=== PATIENT | male | born 1985 | race African-American/Black ===

== ENCOUNTER 2017-08-11 22:04 | Emergency (ER) | payer BC, MEDICAID ==
[~2017-08-11] VITALS: Ht 167.6 cm; Wt 74.8 kg
[~2017-08-11 22:04] MED LIST: HYDR-971 PO; SULF1TAB24 PO
[2017-08-11 22:05] VITALS: BP 158/96
[2017-08-11] MEDS ORDERED: HYDR-971 PO (22:26)
[2017-08-11] MEDS ORDERED: SULF1TAB24 PO (22:26)
--- NOTE | 2017-08-11 22:27 | PHYS DOC ---
Past Medical History Past Medical History: No Pertinent History, HIV (. You) Past Surgical History: No Surgical History Alcohol Use: Rarely Drug Use: None Adult General Chief Complaint Chief Complaint: INSECT BITE HPI HPI Patient is a 32 year old male with hx of HIV who presents with what he believes is a spider bite on the left forehead that he noted 2 days ago. Patient denies any fever. Review of Systems Review of Systems Constitutional: Denies fever or chills [] Musculoskeletal: Denies back pain or joint pain [] Integument: Spider bite on the left forehead Neurologic: Denies headache, focal weakness or sensory changes [] Allergies Allergies Allergies Coded Allergies Type Severity Reaction Last Updated Verified quetiapine Allergy Intermediate jittery/sweaty 05/29/15 Yes tramadol Allergy Intermediate "makes me feel funny" 05/29/15 No I S O L A T I O N *CONTACT* Allergy Unknown 06/02/15 Yes Physical Exam Physical Exam Constitutional: Well developed, well nourished, no acute distress, non-toxic appearance. [] Skin: Warm, dry, left forehead with an indurated area approximately 2 x 2 centimeters with slight erythema. The area is tender to touch warm but not fluctuant. Back: No tenderness, no CVA tenderness. [] Extremities: No tenderness, no cyanosis, no clubbing, ROM intact, no edema. [] Neurologic: Alert and oriented X 3, normal motor function, normal sensory function, no focal deficits noted. [] Psychologic: Affect normal, judgement normal, mood normal. [] Current Patient Data Vital Signs Vital Signs Date Time Temp Pulse Resp B/P (MAP) Pulse Ox O2 Delivery O2 Flow Rate FiO2 08/11/17 22:05 98.2 95 16 97 Room Air 98.2 EKG EKG [] Radiology/Procedures Radiology/Procedures [] Course & Med Decision Making Course & Med Decision Making Pertinent Labs and Imaging studies reviewed. (See chart for details) This is a HIV patient presenting to the ED with what appears to be an abscess on the left forehead that is not ready to be drained. He was discharged on Bactrim. He was also discharged with instructions to apply warm compresses to the area. Follow-up with his own PCP in one week. He was provided return precautions and discharged in stable condition. Tetanus is up to date. Dragon Disclaimer Dragon Disclaimer This electronic medical record was generated, in whole or in part, using a voice recognition dictation system. Departure Departure Impression: Primary Impression: Abscess of forehead Disposition: 01 HOME, SELF-CARE Condition: STABLE Referrals: UNKNOWN PCP NAME (PCP) followup with your doctor next week Patient Instructions: Abscess Additional Instructions: You were seen with an abscess of the left forehead. Keep the area clean and dry. You can apply warm compresses to the area. Ensure you complete all the antibiotics. Follow-up with your doctor next week. Come back to the ED if symptoms worsen. Scripts Hydrocodone/Apap 5-325 (NORCO 5-325 TABLET) 1 Each Tablet 1 TAB PO Q4-6HRS, #20 TAB Prov: ELIZABETH ASIF APRN 08/11/17 Sulfamethoxazole/Trimethoprim (BACTRIM DS TABLET) 1 Each Tablet 1 TAB PO BID, #20 TAB Prov: ELIZABETH ASIF APRN 08/11/17 ELIZABETH ASIF APRN Aug 11, 2017 22:27
== END 2017-08-11 22:41 | disposition home or self-care (01) ==
LOC: ER 22:04
DX: L02.01 Cutaneous abscess of face (principal); Z88.8 Allergy status to other drugs, medicaments and biological substances; Z88.5 Allergy status to narcotic agent; Z91.041 Radiographic dye allergy status; Z21 Asymptomatic human immunodeficiency virus [HIV] infection status
CPT/HCPCS: 99283

== ENCOUNTER 2017-10-09 22:52 | Inpatient (IN) | payer BC, MEDICAID ==
[~2017-10-09] VITALS: Ht 167.6 cm; Wt 92.3 kg
[2017-10-10] VITALS (15 sets, daily range): BP systolic 86–131; BP diastolic 46–80
[2017-10-10 00:12] LABS: BASO % 0 % (0-3); EOS % 0 % (0-3); HEMATOCRIT 37.3 % (39.0-53.0); HEMOGLOBIN 12.5 g/dL (13.0-17.5); LYMPH # 0.3 x10^3/uL (1.0-4.8); LYMPH % 4 % (24-48); MEAN CORPUSCULAR HEMOGLOBIN 31 pg (25-35); MEAN CORPUSCULAR HGB CONC 34 g/dL (31-37); MEAN CORPUSCULAR VOLUME 92 fL (79-100); MONO % 1 % (0-9); NEUT % 95 % (31-73); PLATELET COUNT 52 x10^3/uL (140-400); RED BLOOD COUNT 4.07 x10^6/uL (4.30-5.70); RED CELL DISTRIBUTION WIDTH 13.8 % (11.5-14.5)
[2017-10-10 00:13] LABS: BILIRUBIN,URINE NEGATIVE (NEG); GLUCOSE,URINE NEGATIVE (NEG); NITRITE,URINE NEGATIVE (NEG); PH,URINE 6.5; PROTEIN,URINE >=300 mg/dL (NEG-TRACE); UROBILINOGEN,URINE 0.2 mg/dL (0.2 mg/dL)
[2017-10-10 00:22] LABS: BACTERIA,URINE 0 /HPF (0-FEW); SQUAMOUS EPITHELIAL CELL,UR FEW /LPF
[2017-10-10 00:30] LABS: CALCIUM 8.3 mg/dL (8.5-10.1); CREATININE 1.3 mg/dL (0.7-1.3); GFR 78.4
[2017-10-10] MEDS ORDERED: VANCOMYCIN PER PHARMACY MC PRN (00:30)
[2017-10-10] MEDS ORDERED: PIPERACILLIN/TAZO IV Push 3.375 GM VIAL. IVP ONE (00:30)
[2017-10-10] MEDS ORDERED: PIPERACILLIN/TAZOBACTAM 3.375 GM in IV DEXTROSE 5% 50 ML IV ONE (00:30)
[2017-10-10 00:36] LABS: ALBUMIN 2.4 g/dL (3.4-5.0); ALBUMIN/GLOBULIN RATIO 0.7 (1.0-1.7); TOTAL BILIRUBIN 0.4 mg/dL (0.2-1.0)
[2017-10-10] MEDS ORDERED: ACETAMINOPHEN 500 MG TABLET PO ONE (00:45)
[2017-10-10] MEDS ORDERED: IV NORMAL SALINE 1000ML BAG 1,000 ML IV ONE (00:45)
[2017-10-10] MEDS ORDERED: VANCOMYCIN 1.75 GM in IV DEXTROSE 5 %-0.45 % NACL 500 ML IV ONE (01:00)
[2017-10-10] MEDS ORDERED: AZITHROMYCIN 500 MG in IV NORMAL SALINE 250ML 250 ML IV ONE (01:15)
[2017-10-10] MEDS ORDERED: ONDANSETRON PF 4 MG/2 ML VIAL. IV PRN (01:15)
[2017-10-10 01:23] LABS: BASE EXCESS COOX -2 mmol/L (-3-3); BODY TEMP COOX 100.7 DEG; CARBON MONOXIDE 0.1 % (0.0-1.9); CORRECTED PCO2 COOX 27 mmHg; CORRECTED PH COOX 7.49; CORRECTED PO2 COOX 82 mmHg; HCO3 COOX 20 mmol/L (21-28); METHEMOGLOBIN 0.7 % (0.0-1.9); OXYHEMOGLOBIN 94.6 %; PCO2 COOX 26 mmHg (35-46); PH COOX 7.51 (7.35-7.45); PO2 COOX 75 mmHg (85-108); SAT O2 COOX 95 % (92-99); TOTAL HEMOGLOBIN 12.3 g/dL
[2017-10-10] MEDS ORDERED: AZITHRMYCN 500MG IVPB FOR OMNI 250 ML IV ONE (01:30)
[2017-10-10] MEDS ORDERED: ATOVAQUONE 750 MG/5 ML ORAL.SUSP. PO ONE (01:30)
[2017-10-10 01:48] LABS: FIO2 COOX 21
[2017-10-10] MEDS ORDERED: predniSONE 20 MG TABLET PO ONE (02:00)
[2017-10-10] MEDS ORDERED: IV NORMAL SALINE 500ML BAG 500 ML IV PRN (02:15)
[2017-10-10] MEDS ORDERED: NOREPINEPHRIN PREMIX 250 ML IV PRN (02:15)
[2017-10-10] MEDS: IV NORMAL SALINE 1000ML BAG 1,000 ML IV SCH ×4 (02:50→22:50)
[2017-10-10] MEDS ORDERED: chlorproMAZINE 25 MG TABLET PO PRN (03:30)
[2017-10-10] MEDS: IBUPROFEN 600 MG TABLET. PO PRN (03:41)
--- NOTE | 2017-10-10 03:48 | PHYS DOC ---
Past Medical History Past Medical History: HIV Past Surgical History: No Surgical History Additional Information: 3-4 CIGS/DAY Alcohol Use: None Drug Use: None Adult General Chief Complaint Chief Complaint: COUGH HPI HPI Patient is a 32 year old male presenting to the emergency department for evaluation of cough and fever and generalized malaise fatigue arthralgias and myalgias. Patient reports that he just left AGAINST MEDICAL ADVICE from [facility] 2 days prior to presenting here after being in the hospital there for approximately 3 days. He was diagnosed with pneumonia and was on IV antibiotics for the duration of his admission. He says that he had to go to work and he was feeling better so he decided to leave AGAINST MEDICAL ADVICE. Patient does not have any records with him so all of his admission records were requested from [facility] and most of them were obtained as best I can tell. Patient had CT scan which showed right middle lobe pneumonia and he had a bronchoscopy which was negative for pneumocystis or malignant cells. Patient takes anti-retroviral medications however he is not on any bacterial prophylaxis. Patient says his last CD4 count was 40 and per the records it appears that they measured it at 55. Patient does look quite ill on initial presentation slightly hypoxic and febrile with some respiratory distress. Review of Systems Review of Systems Constitutional: + fever, chills [] Eyes: Denies change in visual acuity, redness, or eye pain [] HENT: Denies nasal congestion or sore throat [] Respiratory: + cough, shortness of breath [] Cardiovascular: No additional information not addressed in HPI [] GI: Denies abdominal pain, nausea, vomiting, bloody stools or diarrhea [] : Denies dysuria or hematuria [] Musculoskeletal: Denies back pain. + joint pain [] Integument: Denies rash or skin lesions [] Neurologic: Denies headache, focal weakness or sensory changes [] All other systems were reviewed and found to be within normal limits, except as documented in this note. Current Medications Current Medications Current Medications Medications (Trade) Dose Ordered Sig/Nay Start Time Stop Time Status Last Admin Dose Admin Acetaminophen (Tylenol) 1,000 mg 1X ONCE 10/10/17 00:45 10/10/17 00:46 DC 10/10/17 01:07 1,000 MG Piperacillin Sod/ Tazobactam Sod (Zosyn) 3.375 gm 1X ONCE 10/10/17 00:30 10/10/17 00:31 DC 10/10/17 00:51 3.375 GM Piperacillin Sod/ Tazobactam Sod 3.375 gm/Dextrose 50 ml @ 100 mls/hr 1X ONCE 10/10/17 00:30 10/10/17 00:59 UNV Sodium Chloride 1,000 ml @ 1,000 mls/hr 1X ONCE 10/10/17 00:45 10/10/17 01:44 DC 10/10/17 01:22 1,000 MLS/HR Vancomycin HCl (Vanco Per Pharmacy) 1 each PRN DAILY PRN 10/10/17 00:30 10/10/17 02:47 1 EACH Allergies Allergies Allergies Coded Allergies Type Severity Reaction Last Updated Verified quetiapine Allergy Intermediate jittery/sweaty 05/29/15 Yes sulfamethoxazole Allergy Intermediate 10/09/17 Yes tramadol Allergy Intermediate "makes me feel funny" 05/29/15 No trimethoprim Allergy Intermediate 10/09/17 Yes I S O L A T I O N *CONTACT* Allergy Unknown 06/02/15 Yes Physical Exam Physical Exam Constitutional: Well developed, well nourished, no acute distress, non-toxic appearance. [] HENT: Normocephalic, atraumatic, bilateral external ears normal, oropharynx moist, no oral exudates, nose normal. [] Eyes: PERRLA, EOMI, conjunctiva normal, no discharge. [] Neck: Normal range of motion, no tenderness, supple, no stridor. [] Cardiovascular:Heart rate tachycardic with regular rhythm, no murmur [] Lungs & Thorax: Bilateral breath sounds with coarse breath sounds and expiratory wheezing noted with some diminished breath sounds as well. Abdomen: Bowel sounds normal, soft, no tenderness, no masses, no pulsatile masses. [] Skin: Warm, dry, no erythema, no rash. [] Back: No tenderness, no CVA tenderness. [] Extremities: No tenderness, no cyanosis, no clubbing, ROM intact, no edema. [] Neurologic: Alert and oriented X 3, normal motor function, normal sensory function, no focal deficits noted. [] Current Patient Data Vital Signs Vital Signs Date Time Temp Pulse Resp B/P (MAP) Pulse Ox O2 Delivery O2 Flow Rate FiO2 10/10/17 00:29 99 129/70 (89) 98 Room Air 10/10/17 00:00 18 10/09/17 23:29 99.7 99.7 Lab Values Laboratory Tests Test 10/09/17 00:00 10/09/17 23:31 10/10/17 00:01 White Blood Count 8.0 x10^3/uL (4.0-11.0) Red Blood Count 4.07 x10^6/uL (4.30-5.70) L Hemoglobin 12.5 g/dL (13.0-17.5) L Hematocrit 37.3 % (39.0-53.0) L Mean Corpuscular Volume 92 fL (79-100) Mean Corpuscular Hemoglobin 31 pg (25-35) Mean Corpuscular Hemoglobin Concent 34 g/dL (31-37) Red Cell Distribution Width 13.8 % (11.5-14.5) Platelet Count 52 x10^3/uL (140-400) L Neutrophils (%) (Auto) 95 % (31-73) H Lymphocytes (%) (Auto) 4 % (24-48) L Monocytes (%) (Auto) 1 % (0-9) Eosinophils (%) (Auto) 0 % (0-3) Basophils (%) (Auto) 0 % (0-3) Neutrophils # (Auto) 7.6 x10^3uL (1.8-7.7) Lymphocytes # (Auto) 0.3 x10^3/uL (1.0-4.8) L Monocytes # (Auto) 0.1 x10^3/uL (0.0-1.1) Eosinophils # (Auto) 0.0 x10^3/uL (0.0-0.7) Basophils # (Auto) 0.0 x10^3/uL (0.0-0.2) Platelet Estimate Pending Urine Collection Type Unknown Urine Color Yellow Urine Clarity Clear Urine pH 6.5 Urine Specific [place] >=1.030 Urine Protein >=300 mg/dL (NEG-TRACE) Urine Glucose (UA) Negative mg/dL (NEG) Urine Ketones (Stick) Negative mg/dL (NEG) Urine Blood Negative (NEG) Urine Nitrite Negative (NEG) Urine Bilirubin Negative (NEG) Urine Urobilinogen Dipstick 0.2 mg/dL (0.2 mg/dL) Urine Leukocyte Esterase Negative (NEG) Urine RBC 3-5 /HPF (0-2) Urine WBC 1-4 /HPF (0-4) Urine Squamous Epithelial Cells Few /LPF Urine Bacteria 0 /HPF (0-FEW) Urine Mucus Mod /LPF Sodium Level 136 mmol/L (136-145) Potassium Level 4.0 mmol/L (3.5-5.1) Chloride Level 102 mmol/L (98-107) Carbon Dioxide Level 25 mmol/L (21-32) Anion Gap 9 (6-14) Blood Urea Nitrogen 15 mg/dL (8-26) Creatinine 1.3 mg/dL (0.7-1.3) Estimated GFR (Cockcroft-Gault) 78.4 BUN/Creatinine Ratio 12 (6-20) Glucose Level 101 mg/dL (70-99) H Calcium Level 8.3 mg/dL (8.5-10.1) L Magnesium Level 2.0 mg/dL (1.8-2.4) Total Bilirubin 0.4 mg/dL (0.2-1.0) Aspartate Amino Transferase (AST) 34 U/L (15-37) Alanine Aminotransferase (ALT) 26 U/L (16-63) Alkaline Phosphatase 75 U/L (46-116) Creatine Kinase 200 U/L (39-308) IM-Ohk-H-Type Natriuretic Peptide 3727 pg/mL (0-124) H Total Protein 6.0 g/dL (6.4-8.2) L Albumin 2.4 g/dL (3.4-5.0) L Albumin/Globulin Ratio 0.7 (1.0-1.7) L O2 Saturation 95 % (92-99) Arterial Blood pH 7.51 (7.35-7.45) H Arterial Blood pH (Temp corrected) 7.49 Arterial Blood pCO2 at Patient Temp 26 mmHg (35-46) L Arterial Blood pCO2 (Temp correct) 27 mmHg Arterial Blood pO2 at Patient Temp 75 mmHg (85-108) L Arterial Blood pO2 (Temp corrected) 82 mmHg Arterial Blood HCO3 20 mmol/L (21-28) L Arterial Blood Base Excess -2 mmol/L (-3-3) Oxyhemoglobin 94.6 % Methemoglobin 0.7 % (0.0-1.9) Carbon Monoxide, Quantitative 0.1 % (0.0-1.9) FiO2 21 Lactic Acid Level 3.1 mmol/L (0.4-2.0) H Laboratory Tests 10/09/17 00:00 Laboratory Tests 10/09/17 00:00 EKG EKG [] Radiology/Procedures Radiology/Procedures Normal heart size normal mediastinum no obvious free air pneumothorax but he does have right middle lobe and perihilar opacity. Course & Med Decision Making Course & Med Decision Making Patient is quite complex as he is immunocompromised and appears ill. His AA gradient was calculated with his ABG and it was calculated at 43 adjusted for our barometric pressure. His expected AA gradient is 11.5 for his age. Patient does not look toxic but he does look ill so I do not think that he requires intubation or noninvasive mechanical ventilation at this time. I spoke to the infectious disease doctor patient registration clerk Dr. Perez and he recommended vancomycin and Zosyn in addition to Zithromax and atovaquone. Patient's blood pressure is normal so no pressors needed at this time. Sepsis protocol was started with aggressive IV fluids in addition to broad-spectrum antibiotics. Patient did improve significantly from initial presentation while in the emergency department but my opinion he needs ICU admission given his immunosuppressed status and AA gradient. If he continues to improve he may be able to be moved out of the ICU later on today but overnight I want his respiratory status watch closely. Of note steroids are indicated with previous increased AA gradient so he will get 40 mg of prednisone now. Critical care time of 40 minutes. Dragon Disclaimer Dragon Disclaimer This electronic medical record was generated, in whole or in part, using a voice recognition dictation system. Departure Departure Impression: Primary Impression: HCAP (healthcare-associated pneumonia) Additional Impressions: HIV (human immunodeficiency virus infection) Immunosuppression Lactic acid acidosis Sepsis Elevated brain natriuretic peptide (BNP) level Disposition: ADMITTED INPATIENT Admitting Physician: Munira Ontiveros Condition: GUARDED Referrals: UNKNOWN PCP NAME (PCP) Problem Qualifiers DEMOND POSADA DO Oct 10, 2017 03:48
[2017-10-10 05:04] LABS: PLT ESTIMATE DECREASED (ADEQUATE)
--- NOTE | 2017-10-10 07:27 | RAD ---
Indication: Short of air. Technique: Two-view chest radiograph was obtained. No comparison is available. Findings: There may be minimal right infrahilar infiltrate, as noted on the ER preliminary report. Otherwise, the lungs are clear. Cardiomediastinal silhouette is within normal limits. There is no pleural effusion. Bony structures are intact. Impression: There may be minimal right infrahilar infiltrate.
--- NOTE | 2017-10-10 08:11 | PDOC ---
Infectious Disease Note Vital Sign Vital Signs Vital Signs Date Time Temp Pulse Resp B/P (MAP) Pulse Ox O2 Delivery O2 Flow Rate FiO2 10/10/17 06:00 99 27 108/55 (72) 97 Nasal Cannula 2.0 10/10/17 05:00 98.8 98.8 Labs Lab Laboratory Tests Test 10/09/17 23:31 10/10/17 00:01 10/10/17 04:04 O2 Saturation 95 % (92-99) Arterial Blood pH 7.51 (7.35-7.45) Arterial Blood pH (Temp corrected) 7.49 Arterial Blood pCO2 at Patient Temp 26 mmHg (35-46) Arterial Blood pCO2 (Temp correct) 27 mmHg Arterial Blood pO2 at Patient Temp 75 mmHg (85-108) Arterial Blood pO2 (Temp corrected) 82 mmHg Arterial Blood HCO3 20 mmol/L (21-28) Arterial Blood Base Excess -2 mmol/L (-3-3) Oxyhemoglobin 94.6 % Methemoglobin 0.7 % (0.0-1.9) Carbon Monoxide, Quantitative 0.1 % (0.0-1.9) FiO2 21 Lactic Acid Level 3.1 mmol/L (0.4-2.0) 3.1 mmol/L (0.4-2.0) Procalcitonin 0.65 ng/mL (0.00-0.10) Objective Assessment HIV/AIDS Fever Rash Recent pneumonia Non compliance Plan Plan of Care workup cont ARV AUSTEN Forman MD Oct 10, 2017 08:11
[2017-10-10] MEDS ORDERED: HYDROcodone/APAP 5/325MG 1 TAB TABLET PO PRN (08:15)
[2017-10-10] MEDS ORDERED: ALBUTEROL SULFATE 2.5 MG/3 ML NEBU. NEB PRN (08:45)
[2017-10-10] MEDS ORDERED: IOHEXOL 300 MG/ML 100ML VIAL. IV ONE (09:00)
[2017-10-10] MEDS ORDERED: CONTRAST GIVEN MC PRN (09:00)
[2017-10-10] MEDS: IPRATRPIUM/ALBUTEROL 0.5/2.5MG 3 ML NEBU. NEB SCH ×4 (09:00→21:21)
[2017-10-10] MEDS ORDERED: IOHEXOL 240 MG/ML 50ML VIAL. PO ONE (09:00)
[2017-10-10] MEDS: chlorproMAZINE 25 MG TABLET PO SCH ×2 (09:20→15:00)
[2017-10-10] MEDS: ATOVAQUONE 750 MG/5 ML ORAL.SUSP. PO SCH (09:20)
[2017-10-10] MEDS: AZITHROMYCIN 500 MG in IV NORMAL SALINE 250ML 250 ML IV SCH (09:20)
[2017-10-10] MEDS ORDERED: NICOTINE 21MG PATCH. TD PRN (09:30)
--- NOTE | 2017-10-10 09:30 | PDOC1 ---
History and Physical Date of Admission Date of Admission DATE: 10/10/17 TIME: 09:20 Identification/Chief Complaint Chief Complaint Fever, cough, generalized weakness Problems: Source Source: Caregiver, Chart review, Patient History of Present Illness History of Present Illness 32-year-old -Mongolian male, known HIV, follows with [facility] for his HIV and HAART, there is some noncompliance documented. Comes in because of the above chief complaint. Claims fever at home myalgias productive cough feeling like crap". He was just recently admitted at [facility] stayed there for 3 days but went AMA 2 days ago because he was feeling better. He did not have any home antibiotics with him because he was discharged AMA. He comes in because of worsening symptoms. He does not know his last CD4 count or viral load. Based on documentation that I have reviewed from [facility] records his last CD4 count was 55. Unknown viral load but there is a mention that it was not undetectable. He claims he is on 2 different pills for his HAART treatment. He has been consulted, ordered viral load, started empiric antibiotics in an immunocompromise. Pulmonary has also been consulted for this pneumonia in an immunocompromised appreciable right lobe consolidation on chest x-ray. Been called last night for hiccups, some headache. He does not have a white count. Hemoglobin 12 WBC 8 platelets 52 lactate 3.1 he was hypotensive a bit but this responded to IV fluids. His flu a and B at [facility] was negative. Does smoke, around 3-40 today. 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 He lives close by hence he came at [facility]. He claims he has family support, and knows his HIV status. Past Medical History Past Medical History HIV on HAART asthma, chronic stable Smoker, 3-4 cigarettes a day Past Surgical History Past Surgical History: No pertinent history Family History Family History: Family History Unknown Social History Smoke: <1 pack per day ALCOHOL: none Drugs: None Current Problem List Problem List Problems Medical Problems: (1) Elevated brain natriuretic peptide (BNP) level Status: Acute (2) HCAP (healthcare-associated pneumonia) Status: Acute (3) HIV (human immunodeficiency virus infection) Status: Acute (4) Immunosuppression Status: Acute (5) Lactic acid acidosis Status: Acute (6) Sepsis Status: Acute Problems: Current Medications Current Medications Current Medications Sodium Chloride 1,000 ml @ 1,000 mls/hr 1X ONCE IV Last administered on 10/10 01:22; Start 10/10/17 at 00:45; Stop 10/10/17 at 01:44; Status DC Acetaminophen (Tylenol) 1,000 mg 1X ONCE PO Last administered on 10/10/17 01 :07; Start 10/10/17 at 00:45; Stop 10/10/17 at 00:46; Status DC Vancomycin HCl (Vanco Per Pharmacy) 1 each PRN DAILY PRN MC SEE COMMENTS Last administered on 10/10/17 02:47; Start 10/10/17 at 00:30 Piperacillin Sod/ Tazobactam Sod 3.375 gm/Dextrose 50 ml @ 100 mls/hr 1X ONCE IV ; Start 10/10/17 at 00:30; Stop 10/10/17 at 00:59; Status UNV Piperacillin Sod/ Tazobactam Sod (Zosyn) 3.375 gm 1X ONCE IVP Last administered on 10/10/17 00:51; Start 10/10/17 at 00:30; Stop 10/10/17 at 00 :31; Status DC Vancomycin HCl 1.75 gm/Dextrose/ Sodium Chloride 500 ml @ 250 mls/hr 1X ONCE IV Last administered on 10/10/17 00:51; Start 10/10/17 at 01:00; Stop 10/10 at 02:59; Status DC Azithromycin 500 mg/Sodium Chloride 250 ml @ 250 mls/hr 1X ONCE IV ; Start at 01:15; Stop 10/10/17 at 02:14; Status UNV Atovaquone (Mepron) 750 mg 1X ONCE PO Last administered on 10/10/17 01:57; Start 10/10/17 at 01:30; Stop 10/10/17 at 01:31; Status DC Ondansetron HCl (Zofran) 4 mg PRN Q8HRS PRN IV NAUSEA/VOMITING; Start at 01:15; Stop 10/11/17 at 01:14 Azithromycin 250 ml @ 250 mls/hr 1X ONCE IV Last administered on 10/10/17 02:02; Start 10/10/17 at 01:30; Stop 10/10/17 at 02:29; Status DC Prednisone (Prednisone) 40 mg 1X ONCE PO Last administered on 10/10/17 01:57 ; Start 10/10/17 at 02:00; Stop 10/10/17 at 02:01; Status DC Sodium Chloride 1,000 ml @ 1,000 mls/hr Q1H IV Last administered on 03:30; Start 10/10/17 at 02:30; Stop 10/10/17 at 04:25; Status DC Sodium Chloride 500 ml @ 1,000 mls/hr PRN Q30MIN PRN IV SEE COMMENTS; Start 10/10/17 at 02:15 Norepinephrine Bitartrate 250 ml @ 0 mls/hr CONT PRN IV SEE I/O RECORD; Start 10/10/17 at 02:15; Stop 10/10/17 at 08:33; Status DC Dobutamine HCl/ Dextrose 250 ml @ 0 mls/hr CONT PRN IV SEE I/O RECORD; Start 10/10/17 at 02:15; Stop 10/10/17 at 08:33; Status DC Vancomycin HCl 1.25 gm/Sodium Chloride 250 ml @ 167 mls/hr Q12H IV ; Start at 13:00; Stop 10/10/17 at 13:00; Status DC Vancomycin HCl 1 each 1X ONCE MC ; Start 10/11/17 at 12:30; Stop 10/11/17 at 12:31 Ibuprofen (Motrin) 600 mg PRN Q6HRS PRN PO INFLAMMATION Last administered on 03:41; Start 10/10/17 at 03:30 Chlorpromazine HCl (Thorazine) 25 mg PRN Q6HRS PRN PO HICCUPS Last administered on 10/10/17 03:41; Start 10/10/17 at 03:30; Stop 10/10/17 at 08 :33; Status DC Acetaminophen/ Hydrocodone Bitart (Lortab 5/325) 1 tab PRN Q6HRS PRN PO PAIN; Start 10/10/17 at 08:15 Acetaminophen/ Hydrocodone Bitart (Lortab 5/325) 1 tab QID PRN PO pain; Start 10/10/17 at 08:15; Status UNV Atovaquone (Mepron) 750 mg BID PO ; Start 10/10/17 at 09:00 Azithromycin 500 mg/Sodium Chloride 250 ml @ 250 mls/hr Q24H IV ; Start at 09:00 Levofloxacin/ Dextrose 150 ml @ 100 mls/hr Q24H IV ; Start 10/10/17 at 09:00 Chlorpromazine HCl (Thorazine) 25 mg TID PO ; Start 10/10/17 at 09:00 Albuterol/ Ipratropium (Duoneb) 3 ml RTQID NEB ; Start 10/10/17 at 09:00 Albuterol Sulfate (Ventolin Neb Soln) 2.5 mg PRN Q4HRS PRN NEB SHORTNESS OF BREATH; Start 10/10/17 at 08:45 Guaifenesin (Robitussin Dm) 10 ml PRN Q6HRS PRN PO COUGH; Start 10/10/17 at 08 :45 Sodium Chloride 1,000 ml @ 100 mls/hr Q10H IV ; Start 10/10/17 at 08:45 Iohexol (Omnipaque 240 Mg/ml) 30 ml 1X ONCE PO ; Start 10/10/17 at 09:00; Stop 10/10/17 at 09:01; Status DC Iohexol (Omnipaque 300 Mg/ml) 75 ml 1X ONCE IV ; Start 10/10/17 at 09:00; Stop 10/10/17 at 09:01; Status DC Info (Do NOT chart on this entry -- for MONITORING) 1 each PRN DAILY PRN MC SEE COMMENTS; Start 10/10/17 at 09:00; Stop 10/12/17 at 08:59 Active Scripts Active Basalt 5-325 Tablet (Acetaminophen/Hydrocodone Bitart) 1 Each Tablet 1 Tab PO Q4- 6HRS Bactrim Ds Tablet (Sulfamethoxazole/Trimethoprim) 1 Each Tablet 1 Tab PO BID Basalt 5-325 Tablet (Acetaminophen/Hydrocodone Bitart) 1 Each Tablet 1 Tab PO PRN Q6HRS PRN Bactrim Ds Tablet (Sulfamethoxazole/Trimethoprim) 1 Each Tablet 1 Tab PO BID Allergies Allergies: Coded Allergies: quetiapine (Verified Allergy, Intermediate, jittery/sweaty, 05/29/15) sulfamethoxazole (Verified Allergy, Intermediate, 10/09/17) trimethoprim (Verified Allergy, Intermediate, 10/09/17) I S O L A T I O N *CONTACT* (Verified Allergy, Unknown, 06/02/15) mrsa + tramadol (Unverified Adverse Reaction, Intermediate, "makes me feel funny ", 10/10/17) ROS Review of System Positive for fever, chills, myalgias, productive cough, headache, Rst of 14 point systems otherwise negative. Please refer to history of present illness. Physical Exam General: Alert, Oriented X3, Cooperative, No acute distress, Other (cold, multiple blankets on) HEENT: PERRLA Lungs: Normal air movement, Other (decrease breath sounds bases and right middle lung field dullness to percussion right lung field) Cardiovascular: S1, S2 Abdomen: Normal bowel sounds, Soft, No tenderness, No hepatosplenomegaly, No masses Rectal Exam: not examined PELVIC: Nml ext genitalia Extremities: No clubbing, No cyanosis, No edema, Normal pulses, No tenderness/ swelling Skin: Other (flaky dry skin all over the face chest upper extremity) Neuro: Normal gait, Normal speech, Strength at 5/5 X4 ext, Normal tone, Sensation intact, Cranial nerves 3-12 NL, Reflexes 2+ Psych/Mental Status: Mental status NL, Mood NL Vitals Vitals Vital Signs Date Time Temp Pulse Resp B/P (MAP) Pulse Ox O2 Delivery O2 Flow Rate FiO2 10/10/17 09:00 114 24 112/62 (79) 100 Room Air 10/10/17 08:00 98.4 98.4 10/10/17 06:00 2.0 Labs Labs Laboratory Tests Test 10/09/17 00:00 10/09/17 23:31 10/10/17 00:01 10/10/17 04:04 White Blood Count 8.0 x10^3/uL (4.0-11.0) Red Blood Count 4.07 x10^6/uL (4.30-5.70) Hemoglobin 12.5 g/dL (13.0-17.5) Hematocrit 37.3 % (39.0-53.0) Mean Corpuscular Volume 92 fL (79-100) Mean Corpuscular Hemoglobin 31 pg (25-35) Mean Corpuscular Hemoglobin Concent 34 g/dL (31-37) Red Cell Distribution Width 13.8 % (11.5-14.5) Platelet Count 52 x10^3/uL (140-400) Neutrophils (%) (Auto) 95 % (31-73) Lymphocytes (%) (Auto) 4 % (24-48) Monocytes (%) (Auto) 1 % (0-9) Eosinophils (%) (Auto) 0 % (0-3) Basophils (%) (Auto) 0 % (0-3) Neutrophils # (Auto) 7.6 x10^3uL (1.8-7.7) Lymphocytes # (Auto) 0.3 x10^3/uL (1.0-4.8) Monocytes # (Auto) 0.1 x10^3/uL (0.0-1.1) Eosinophils # (Auto) 0.0 x10^3/uL (0.0-0.7) Basophils # (Auto) 0.0 x10^3/uL (0.0-0.2) Segmented Neutrophils % 62 % (35-66) Band Neutrophils % 29 % (0-9) Lymphocytes % 6 % (24-48) Monocytes % 3 % (0-10) Platelet Estimate Decreased (ADEQUATE) Giant Platelets Occ Urine Collection Type Unknown Urine Color Yellow Urine Clarity Clear Urine pH 6.5 Urine Specific Aurora >=1.030 Urine Protein >=300 mg/dL (NEG-TRACE) Urine Glucose (UA) Negative mg/dL (NEG) Urine Ketones (Stick) Negative mg/dL (NEG) Urine Blood Negative (NEG) Urine Nitrite Negative (NEG) Urine Bilirubin Negative (NEG) Urine Urobilinogen Dipstick 0.2 mg/dL (0.2 mg/dL) Urine Leukocyte Esterase Negative (NEG) Urine RBC 3-5 /HPF (0-2) Urine WBC 1-4 /HPF (0-4) Urine Squamous Epithelial Cells Few /LPF Urine Bacteria 0 /HPF (0-FEW) Urine Mucus Mod /LPF Sodium Level 136 mmol/L (136-145) Potassium Level 4.0 mmol/L (3.5-5.1) Chloride Level 102 mmol/L (98-107) Carbon Dioxide Level 25 mmol/L (21-32) Anion Gap 9 (6-14) Blood Urea Nitrogen 15 mg/dL (8-26) Creatinine 1.3 mg/dL (0.7-1.3) Estimated GFR (Cockcroft-Gault) 78.4 BUN/Creatinine Ratio 12 (6-20) Glucose Level 101 mg/dL (70-99) Calcium Level 8.3 mg/dL (8.5-10.1) Magnesium Level 2.0 mg/dL (1.8-2.4) Total Bilirubin 0.4 mg/dL (0.2-1.0) Aspartate Amino Transf (AST/SGOT) 34 U/L (15-37) Alanine Aminotransferase (ALT/SGPT) 26 U/L (16-63) Alkaline Phosphatase 75 U/L (46-116) Creatine Kinase 200 U/L (39-308) IS-Uxy-S-Type Natriuretic Peptide 3727 pg/mL (0-124) Total Protein 6.0 g/dL (6.4-8.2) Albumin 2.4 g/dL (3.4-5.0) Albumin/Globulin Ratio 0.7 (1.0-1.7) O2 Saturation 95 % (92-99) Arterial Blood pH 7.51 (7.35-7.45) Arterial Blood pH (Temp corrected) 7.49 Arterial Blood pCO2 at Patient Temp 26 mmHg (35-46) Arterial Blood pCO2 (Temp correct) 27 mmHg Arterial Blood pO2 at Patient Temp 75 mmHg (85-108) Arterial Blood pO2 (Temp corrected) 82 mmHg Arterial Blood HCO3 20 mmol/L (21-28) Arterial Blood Base Excess -2 mmol/L (-3-3) Oxyhemoglobin 94.6 % Methemoglobin 0.7 % (0.0-1.9) Carbon Monoxide, Quantitative 0.1 % (0.0-1.9) FiO2 21 Lactic Acid Level 3.1 mmol/L (0.4-2.0) 3.1 mmol/L (0.4-2.0) Procalcitonin 0.65 ng/mL (0.00-0.10) Test 10/10/17 08:12 Lactic Acid Level 2.2 mmol/L (0.4-2.0) Laboratory Tests Test 10/09/17 23:31 10/10/17 00:01 10/10/17 04:04 10/10/17 08:12 O2 Saturation 95 % (92-99) Arterial Blood pH 7.51 (7.35-7.45) Arterial Blood pH (Temp corrected) 7.49 Arterial Blood pCO2 at Patient Temp 26 mmHg (35-46) Arterial Blood pCO2 (Temp correct) 27 mmHg Arterial Blood pO2 at Patient Temp 75 mmHg (85-108) Arterial Blood pO2 (Temp corrected) 82 mmHg Arterial Blood HCO3 20 mmol/L (21-28) Arterial Blood Base Excess -2 mmol/L (-3-3) Oxyhemoglobin 94.6 % Methemoglobin 0.7 % (0.0-1.9) Carbon Monoxide, Quantitative 0.1 % (0.0-1.9) FiO2 21 Lactic Acid Level 3.1 mmol/L (0.4-2.0) 3.1 mmol/L (0.4-2.0) 2.2 mmol/L (0.4-2.0) Procalcitonin 0.65 ng/mL (0.00-0.10) VTE Prophylaxis Ordered VTE Prophylaxis Devices: Yes VTE Pharmacological Prophylaxi: Yes Assessment/Plan Assessment/Plan #1 AIDS on HAART #2 fever in an immunocompromised #3 mild to moderate PCM #4 asthma chronic stable #5. HCAP smoker Plan of care: Check Viral load,check for crypto, toxoplasmosis, CMV follow ID recommendations started on empiric antibiotics in an immunocompromised pulmonary consulted Thorazine for hiccups cough medicine, albuterol, duo nebs, ibuprofen for headache okay to transfer out of ICU counselled on his smoking habits Nicotine patch when necessary LEANDRA MADERA MD Oct 10, 2017 09:29
--- NOTE | 2017-10-10 11:17 | CONS ---
DATE OF CONSULTATION: ATTENDING PHYSICIAN: Dr. Ontiveros. REASON FOR CONSULTATION: Fever, pneumonia, HIV/AIDS. HISTORY OF PRESENT ILLNESS: The patient is a 32-year-old -[place]ux[place]bour[place] male who was diagnosed with HIV about a year ago and has been followed at HIV clinic at and has been on antiretroviral therapy. There is some history of noncompliance. He was admitted to [facility] with cough, myalgias and fever. He went AMA 2 days ago as he was feeling better. The patient has not been on any antibiotics. He was then again seen at our hospital with increasing cough and some dyspnea as well. The patient was noted to have fever up to 101 and was also noted to have lactic acid of 3.1. I have reviewed the patient's chest x-ray. There appears to be very faint interstitial infiltrates bilaterally with more focal infiltrate, right lower lobe infrahilar area. His CD4 count was 55 at [facility] and he has thrombocytopenia. He was started on broad-spectrum antibiotic per Infectious Disease and been asked to see him for further evaluation. PAST MEDICAL HISTORY: History of HIV/AIDS on HAART, history of asthma and also history of smoking for past 1 year. PAST SURGICAL HISTORY: No recent surgery. ALLERGIES: QUETIAPINE, SULFAMETHOXAZOLE, TRAMADOL and TRIMETHOPRIM. MEDICATIONS: Reviewed as listed in the MRAD including antibiotic, Levaquin, azithromycin and atovaquone. REVIEW OF SYSTEMS: Twelve-point system obtained. Pertinent positives discussed in my history of present illness, otherwise noncontributory. All systems that were negative were reviewed as well. PHYSICAL EXAMINATION: GENERAL: He is awake, following commands. VITAL SIGNS: Blood pressure is now responding to fluids, is 112 systolic, T-max of 101, pulse ox 100% room air. EYES: Sclerae nonicteric. NECK: Supple. LUNGS: With diminished breath sounds. CARDIOVASCULAR: Regular rate and rhythm. ABDOMEN: Soft. EXTREMITIES: With no pitting edema. LABORATORY DATA: Reviewed. His BUN 15, creatinine 1.3. Albumin is 2.4. ABG showed respiratory alkalosis. PO2 of 71 on room air. White cell count 8.0, hemoglobin 12.5, platelets are 52. IMPRESSION: 1. Dyspnea and cough along with high grade fever in a patient who is human immunodeficiency virus with last CD4 count of 55. His chest x-ray is consistent with fine interstitial markings bilaterally along with focal infiltrate in the right lower lobe. At this time, it is reasonable to consider bacterial infection; however, the possibility of PCP pneumonia cannot be ruled out. Will need a CT chest without contrast to better assess for parenchymal infiltrates. 2. History of human immunodeficiency virus/acquired immune deficiency syndrome with CD4 count of 55 on HAART treatment. 3. History of tobaccoism. 4. History of asthma. RECOMMENDATIONS: 1. Continue with broad spectrum antibiotic per Infectious Disease recommendation. 2. Continue nebulizer. 3. P.r.n. oxygen. 4. Atovaquone Per ID for PCP prophylaxis. 5. Obtain noncontrast CT chest for further evaluation. 6. Monitor fever pattern and if he does not respond, then bronchoscopy can be considered. JUSTIN KAPLAN MD DR: FANG/uriah JOB#: [id number] / [id number] ISABEL
--- NOTE | 2017-10-10 11:45 | CONS ---
DATE OF CONSULTATION: 10/10/2017 REQUESTING PHYSICIAN: Dr. Leung. REASON FOR CONSULTATION: HIV and fever and recent pneumonia. HISTORY OF PRESENT ILLNESS: This is a 32-year-old gentleman who is known HIV, diagnosed about 1 year ago, who follows at or evidently intermittently follows. The patient recently went to the [facility] with fever, diagnosed with pneumonia, had a bronchoscopy and then he signed out AMA. The patient then subsequently ended up here with fever, not feeling well, rash all over, which he says it started before the sickness when he went there. The patient denies any nausea, vomiting, diarrhea. He has had a slight headache at [place] reported, but now he does not have any headache. He does have diarrhea. Denies any chest pain, shortness of breath, or abdominal pain. PAST MEDICAL HISTORY: Positive for HIV about a year or so his diagnosis. He is supposed to be on Descovy and Prezcobix, but one time he lost his medications, somebody took it, so he did have it and then he says once he got the new one then he moved to his friend's house and that he stopped taking it because he did not want him to know that he was HIV. The patient has had history of asthma as a child and this recent pneumonia. SOCIAL HISTORY: Positive for smoking. No alcohol use or drug use. ALLERGIES: LISTED ALLERGIC TO SULFA, WHICH CAUSED HIM TO HAVE RASH, TRAMADOL AND QUETIAPINE. REVIEW OF SYSTEMS: As per HPI. All other systems reviewed are negative. PHYSICAL EXAMINATION: GENERAL: Alert, oriented gentleman, not in distress. VITAL SIGNS: Stable with T-max 101.0. HEENT: Both pupils are round and reacting. No conjunctival lesion, no lesion in the mouth. NECK: Supple, no JVP. Lymphadenopathy is present, small shotty lymph nodes in the neck and in axilla. LUNGS: Clear. HEART: S1, S2 regular. ABDOMEN: Benign. EXTREMITIES: No edema or cyanosis. SKIN: The patient does have erythematous macular rash all over the body as well as he is exfoliating on the face. NEUROLOGIC: The patient is neurologically intact. LABORATORY DATA: White count is 8000, hemoglobin 12.5, platelets are 52,000. Electrolytes are unremarkable with normal BUN and creatinine. Lactic acid up to 3.1. BNP 3727. Procalcitonin 0.65. Liver functions are normal. Cultures are pending. A chest x-ray is showing minimal right infrahilar infiltrate. The records from [place] reviewed. The regular bacterial culture from the bronchoscopy is negative. Blood cultures have been negative at least so far. Histoplasma antigen was negative. Galactomannan was negative. Legionella urine antigen was negative. CD4 count was 55. IMPRESSION: Fever in this gentleman with CD4 of 55. The possibilities are cytomegalovirus, Mycobacterium avium complex, disseminated Mycobacterium avium complex, Pneumocystis carinii pneumonia, toxoplasma, etc. apart from the regular community-acquired pneumonia. We will continue to do workup. Histoplasma has been ruled out. We will get a toxo serology. We will get CMV PCR, crypto antigen, HIV RNA count, RPR testing, toxoplasma testing and will get CT chest, abdomen and pelvis, and continue to follow. Thank you very much, Dr. Ontiveros, for giving me the opportunity to participate in this complicated patient. A detailed discussion done with the patient about not hospital hopping; he needs to stay with one system to be able to take care of him better and be compliant with the medication. AUSTEN KO MD DR: KAITLYN/uriah JOB#: [id number] / [id number] ISABEL
[2017-10-10] MEDS ORDERED: VANCOMYCIN 1.25 GM in IV 1/2 NORMAL SALINE 250 ML IV SCH (13:00)
--- NOTE | 2017-10-10 14:12 | RAD ---
CT of the chest, abdomen and pelvis with contrast, 10/10/2017: History: Fever, HIV positive Multidetector CT imaging was performed following oral and IV administration of contrast. There are emphysematous changes in the upper lobes. Scattered linear parenchymal opacities are compatible with scarring. There is minimal groundglass type opacity in the posterior aspect of the right middle lobe. No dense pulmonary consolidation is seen. There is no evidence of pleural fluid. No mediastinal adenopathy is seen. A trace amount of pericardial fluid is present. No hepatic abnormality is detected. The gallbladder is small. No dense gallstones are seen. No pancreatic abnormality is detected. The spleen is of normal size. No renal or adrenal abnormality is detected. The abdominal aorta is of normal caliber. No abdominal or iliac adenopathy is seen. Multiple bilateral inguinal lymph nodes are noted without definite pathologic enlargement. The bowel loops are not dilated. The oral contrast material has reached the colon without evidence of obstruction. There is slight mural thickening involving several loops of distal ileum. No free air is present in the abdomen. There is a trace amount of free fluid in the pelvis. There is mild streaky edema and fluid in the subcutaneous soft tissues of the lower back at the midline. IMPRESSION: 1. Minimal groundglass opacity in the right middle lobe. 2. Emphysema with parenchymal scarring. 3. Minimal distal ileal mural thickening compatible with nonspecific enteritis. 4. Trace amount of free fluid in the deep pelvis. PQRS Compliance Statement: One or more of the following individualized dose reduction techniques were utilized for this examination: 1. Automated exposure control 2. Adjustment of the mA and/or kV according to patient size 3. Use of iterative reconstruction technique
[2017-10-10] MEDS: ACETAMINOPHEN 325 MG TABLET. PO PRN ×2 (16:20→22:49)
[2017-10-10] MEDS: HYDROcodone/APAP 5/325MG 1 TAB TABLET PO PRN (18:43)
[2017-10-11] VITALS (13 sets, daily range): BP systolic 95–144; BP diastolic 56–82
[2017-10-11] MEDS: ATOVAQUONE 750 MG/5 ML ORAL.SUSP. PO SCH ×2 (01:10→09:00)
[2017-10-11] MEDS: chlorproMAZINE 25 MG TABLET PO SCH ×4 (01:11→21:07)
[2017-10-11] MEDS: ACETAMINOPHEN 325 MG TABLET. PO PRN ×4 (01:11→19:46)
[2017-10-11] MEDS: IV NORMAL SALINE 1000ML BAG 1,000 ML IV SCH ×6 (04:45→16:15)
[2017-10-11 04:57] LABS: BASO % 0 % (0-3); EOS % 1 % (0-3); HEMATOCRIT 36.3 % (39.0-53.0); HEMOGLOBIN 12.2 g/dL (13.0-17.5); LYMPH # 0.1 x10^3/uL (1.0-4.8); LYMPH % 2 % (24-48); MEAN CORPUSCULAR HEMOGLOBIN 31 pg (25-35); MEAN CORPUSCULAR HGB CONC 34 g/dL (31-37); MEAN CORPUSCULAR VOLUME 93 fL (79-100); MONO % 3 % (0-9); NEUT % 94 % (31-73); PLATELET COUNT 40 x10^3/uL (140-400); RED BLOOD COUNT 3.91 x10^6/uL (4.30-5.70); RED CELL DISTRIBUTION WIDTH 14.1 % (11.5-14.5); WHITE BLOOD COUNT 6.7 x10^3/uL (4.0-11.0)
[2017-10-11 05:26] LABS: CALCIUM 7.5 mg/dL (8.5-10.1); CREATININE 1.4 mg/dL (0.7-1.3); POTASSIUM 3.2 mmol/L (3.5-5.1)
[2017-10-11] MEDS: IPRATRPIUM/ALBUTEROL 0.5/2.5MG 3 ML NEBU. NEB SCH ×4 (08:07→20:02)
--- NOTE | 2017-10-11 09:57 | PDOC ---
PULMONARY PROGRESS NOTES Subjective fevers/chills persist loose stools Vitals Vital Signs Date Time Temp Pulse Resp B/P (MAP) Pulse Ox O2 Delivery O2 Flow Rate FiO2 10/11/17 08:07 94 Room Air 10/11/17 07:25 102.7 147 24 144/77 (99) 102.7 10/10/17 20:00 97.0 ROS: No Nausea, No Chest Pain, No Abdominal Pain, No Increase Cough General: Alert, No acute distress Lungs: Clear Cardiovascular: S1, S2 Abdomen: Soft Neuro Exam: Alert Extremities: No Edema Skin: Warm Labs Laboratory Tests Test 10/09/17 23:31 10/10/17 00:01 10/10/17 04:04 10/10/17 05:00 O2 Saturation 95 % (92-99) Arterial Blood pH 7.51 (7.35-7.45) Arterial Blood pH (Temp corrected) 7.49 Arterial Blood pCO2 at Patient Temp 26 mmHg (35-46) Arterial Blood pCO2 (Temp correct) 27 mmHg Arterial Blood pO2 at Patient Temp 75 mmHg (85-108) Arterial Blood pO2 (Temp corrected) 82 mmHg Arterial Blood HCO3 20 mmol/L (21-28) Arterial Blood Base Excess -2 mmol/L (-3-3) Oxyhemoglobin 94.6 % Methemoglobin 0.7 % (0.0-1.9) Carbon Monoxide, Quantitative 0.1 % (0.0-1.9) FiO2 21 Lactic Acid Level 3.1 mmol/L (0.4-2.0) 3.1 mmol/L (0.4-2.0) Procalcitonin 0.65 ng/mL (0.00-0.10) Nasal Screen MRSA (PCR) Negative (Negative) Test 10/10/17 08:12 10/10/17 12:00 10/10/17 16:10 10/10/17 20:10 Lactic Acid Level 2.2 mmol/L (0.4-2.0) 3.6 mmol/L (0.4-2.0) 3.0 mmol/L (0.4-2.0) 3.3 mmol/L (0.4-2.0) Rapid Plasma Reagin Non reactive (Non Reactive) Test 10/11/17 04:25 White Blood Count 6.7 x10^3/uL (4.0-11.0) Red Blood Count 3.91 x10^6/uL (4.30-5.70) Hemoglobin 12.2 g/dL (13.0-17.5) Hematocrit 36.3 % (39.0-53.0) Mean Corpuscular Volume 93 fL (79-100) Mean Corpuscular Hemoglobin 31 pg (25-35) Mean Corpuscular Hemoglobin Concent 34 g/dL (31-37) Red Cell Distribution Width 14.1 % (11.5-14.5) Platelet Count 40 x10^3/uL (140-400) Neutrophils (%) (Auto) 94 % (31-73) Lymphocytes (%) (Auto) 2 % (24-48) Monocytes (%) (Auto) 3 % (0-9) Eosinophils (%) (Auto) 1 % (0-3) Basophils (%) (Auto) 0 % (0-3) Neutrophils # (Auto) 6.3 x10^3uL (1.8-7.7) Lymphocytes # (Auto) 0.1 x10^3/uL (1.0-4.8) Monocytes # (Auto) 0.2 x10^3/uL (0.0-1.1) Eosinophils # (Auto) 0.0 x10^3/uL (0.0-0.7) Basophils # (Auto) 0.0 x10^3/uL (0.0-0.2) Sodium Level 133 mmol/L (136-145) Potassium Level 3.2 mmol/L (3.5-5.1) Chloride Level 101 mmol/L (98-107) Carbon Dioxide Level 21 mmol/L (21-32) Anion Gap 11 (6-14) Blood Urea Nitrogen 13 mg/dL (8-26) Creatinine 1.4 mg/dL (0.7-1.3) Estimated GFR (Cockcroft-Gault) 72.0 Glucose Level 111 mg/dL (70-99) Calcium Level 7.5 mg/dL (8.5-10.1) Laboratory Tests Test 10/10/17 12:00 10/10/17 16:10 10/10/17 20:10 10/11/17 04:25 Lactic Acid Level 3.6 mmol/L (0.4-2.0) 3.0 mmol/L (0.4-2.0) 3.3 mmol/L (0.4-2.0) Rapid Plasma Reagin Non reactive (Non Reactive) White Blood Count 6.7 x10^3/uL (4.0-11.0) Red Blood Count 3.91 x10^6/uL (4.30-5.70) Hemoglobin 12.2 g/dL (13.0-17.5) Hematocrit 36.3 % (39.0-53.0) Mean Corpuscular Volume 93 fL (79-100) Mean Corpuscular Hemoglobin 31 pg (25-35) Mean Corpuscular Hemoglobin Concent 34 g/dL (31-37) Red Cell Distribution Width 14.1 % (11.5-14.5) Platelet Count 40 x10^3/uL (140-400) Neutrophils (%) (Auto) 94 % (31-73) Lymphocytes (%) (Auto) 2 % (24-48) Monocytes (%) (Auto) 3 % (0-9) Eosinophils (%) (Auto) 1 % (0-3) Basophils (%) (Auto) 0 % (0-3) Neutrophils # (Auto) 6.3 x10^3uL (1.8-7.7) Lymphocytes # (Auto) 0.1 x10^3/uL (1.0-4.8) Monocytes # (Auto) 0.2 x10^3/uL (0.0-1.1) Eosinophils # (Auto) 0.0 x10^3/uL (0.0-0.7) Basophils # (Auto) 0.0 x10^3/uL (0.0-0.2) Sodium Level 133 mmol/L (136-145) Potassium Level 3.2 mmol/L (3.5-5.1) Chloride Level 101 mmol/L (98-107) Carbon Dioxide Level 21 mmol/L (21-32) Anion Gap 11 (6-14) Blood Urea Nitrogen 13 mg/dL (8-26) Creatinine 1.4 mg/dL (0.7-1.3) Estimated GFR (Cockcroft-Gault) 72.0 Glucose Level 111 mg/dL (70-99) Calcium Level 7.5 mg/dL (8.5-10.1) Medications Active Scripts Medications Dose Route/Sig Max Daily Dose Days Date Category [place] 5-325 Tablet (Acetaminophen/Hydrocodone Bitart) 1 Each Tablet 1 Tab PO Q4-6HRS 08/11/17 Rx Bactrim Ds Tablet (Sulfamethoxazole/Trimethoprim) 1 Each Tablet 1 Tab PO BID 08/11/17 Rx [place] 5-325 Tablet (Acetaminophen/Hydrocodone Bitart) 1 Each Tablet 1 Tab PO PRN Q6HRS PRN 04/24/16 Rx Bactrim Ds Tablet (Sulfamethoxazole/Trimethoprim) 1 Each Tablet 1 Tab PO BID 04/24/[address] CHEST/ABD/PELVIS 1. Minimal ground-glass opacity in the right middle lobe. 2. Emphysema with parenchymal scarring. 3. Minimal distal ileal mural thickening compatible with nonspecific enteritis. 4. Trace amount of free fluid in the deep pelvis. Impression . 1. Fever/chills in a patient who is human immunodeficiency virus with last CD4 count of 55. His chest x-ray is consistent with mild focal infiltrate in the right lower lobe. CT chest with only mild infiltrate in RML. Doubt source of fever. Enteritis is probably source of fever. 2. History of human immunodeficiency virus/acquired immune deficiency syndrome with CD4 count of 55 on HAART treatment. 3. History of tobaccoism. 4. History of asthma. Plan . 1. Continue with broad spectrum antibiotic per Infectious Disease recommendation. stool studies 2. Continue nebulizer. 3. P.r.n. oxygen. 4. Atovaquone Per ID for PCP prophylaxis. 5. CT chest reviewed. mild RML pneumonitis, doubt source of fever. 6. Follow all cultures JUSTIN KAPLAN MD Oct 11, 2017 09:56
--- NOTE | 2017-10-11 11:26 | PDOC ---
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 FORMER: Alert, oriented x 3, no focal neurologic deficit SKIN: rash, with exfoliation, no mucus membrane involvement IV: ok Labs Lab Laboratory Tests Test 10/10/17 12:00 10/10/17 16:10 10/10/17 20:10 10/11/17 04:25 Lactic Acid Level 3.6 mmol/L (0.4-2.0) 3.0 mmol/L (0.4-2.0) 3.3 mmol/L (0.4-2.0) Rapid Plasma Reagin Non reactive (Non Reactive) White Blood Count 6.7 x10^3/uL (4.0-11.0) Red Blood Count 3.91 x10^6/uL (4.30-5.70) Hemoglobin 12.2 g/dL (13.0-17.5) Hematocrit 36.3 % (39.0-53.0) Mean Corpuscular Volume 93 fL (79-100) Mean Corpuscular Hemoglobin 31 pg (25-35) Mean Corpuscular Hemoglobin Concent 34 g/dL (31-37) Red Cell Distribution Width 14.1 % (11.5-14.5) Platelet Count 40 x10^3/uL (140-400) Neutrophils (%) (Auto) 94 % (31-73) Lymphocytes (%) (Auto) 2 % (24-48) Monocytes (%) (Auto) 3 % (0-9) Eosinophils (%) (Auto) 1 % (0-3) Basophils (%) (Auto) 0 % (0-3) Neutrophils # (Auto) 6.3 x10^3uL (1.8-7.7) Lymphocytes # (Auto) 0.1 x10^3/uL (1.0-4.8) Monocytes # (Auto) 0.2 x10^3/uL (0.0-1.1) Eosinophils # (Auto) 0.0 x10^3/uL (0.0-0.7) Basophils # (Auto) 0.0 x10^3/uL (0.0-0.2) Sodium Level 133 mmol/L (136-145) Potassium Level 3.2 mmol/L (3.5-5.1) Chloride Level 101 mmol/L (98-107) Carbon Dioxide Level 21 mmol/L (21-32) Anion Gap 11 (6-14) Blood Urea Nitrogen 13 mg/dL (8-26) Creatinine 1.4 mg/dL (0.7-1.3) Estimated GFR (Cockcroft-Gault) 72.0 Glucose Level 111 mg/dL (70-99) Calcium Level 7.5 mg/dL (8.5-10.1) Objective Assessment HIV/AIDS Fever Rash,,, drug , ? had rash before mepron started here but he did have at [facility] ,, ? [facility] with exfoliation Recent pneumonia Non compliance Plan Plan of Care workup pt says he is not taking his ARV, and he does not have it. will obtain genotype from [facility]ARTEL and SANTOS d/w dr Roth d/w pts mother at his request sick and very complicated pt AUSTEN KO MD Oct 11, 2017 11:26
[2017-10-11 12:31] LABS: BODY TEMP ABG 102.6 DEG; CORRECTED PCO2 ABG 28 mmHg; CORRECTED PH ABG 7.49; CORRECTED PO2 ABG 72 mmHg; HCO3 ABG 20 mmol/L (21-28); PCO2 ABG 25 mmHg (35-46); PH ABG 7.52 (7.35-7.45); PO2 ABG 62 mmHg (85-108); SAT O2 ABG 92 % (92-99)
--- NOTE | 2017-10-11 13:16 | PDOC ---
PROGRESS NOTES Chief Complaint Chief Complaint Assessment/Plan #1 AIDS on HAART #2 fever in an immunocompromised #3 mild to moderate PCM #4 asthma chronic stable #5. HCAP # 6 SEPSIS smoker Plan of care: SEPSIS PROTOCOL, ICU BED Check Viral load,check for crypto, toxoplasmosis, CMV follow ID recommendations started on empiric antibiotics in an immunocompromised pulmonary consulted Thorazine for hiccups cough medicine, albuterol, duo nebs, ibuprofen for headache ICU BED NOW counselled on his smoking habits Nicotine patch when necessary CXR TODAY BLOOD CULT X 2 40 MIN CC TIME Vitals Vitals Vital Signs Date Time Temp Pulse Resp B/P (MAP) Pulse Ox O2 Delivery O2 Flow Rate FiO2 10/11/17 11:44 Room Air 10/11/17 10:40 102.6 139 24 118/56 (76) 93 102.6 10/10/17 20:00 97.0 Physical Exam Physical Exam NECK: Supple, no JVD, no LN LUNGS: Clear RR =30 HEART: S1S2, no gallop, no murmur ABD: Soft, NT, no organomegaly, no rebound EXT: No edema, no cyanosis CERTIFIED INDOOR ENVIRONMENTALIST: Alert, oriented x 3, no focal neurologic deficit SKIN: rash, with exfoliation, no mucus membrane involvement General: Alert, Oriented X3, Cooperative, No acute distress, Other (cold, multiple blankets on) Heart: Other (TACHY RATE 130) Lungs: Clear Abdomen: Normal bowel sounds, Soft, No tenderness, No hepatosplenomegaly, No masses Extremities: No clubbing, No cyanosis, No edema, Normal pulses, No tenderness/ swelling Skin: Other (flaky dry skin all over the face chest upper extremity) Labs LABS Laboratory Tests Test 10/10/17 16:10 10/10/17 20:10 10/11/17 04:25 10/11/17 11:18 Lactic Acid Level 3.0 mmol/L (0.4-2.0) 3.3 mmol/L (0.4-2.0) White Blood Count 6.7 x10^3/uL (4.0-11.0) Red Blood Count 3.91 x10^6/uL (4.30-5.70) Hemoglobin 12.2 g/dL (13.0-17.5) Hematocrit 36.3 % (39.0-53.0) Mean Corpuscular Volume 93 fL (79-100) Mean Corpuscular Hemoglobin 31 pg (25-35) Mean Corpuscular Hemoglobin Concent 34 g/dL (31-37) Red Cell Distribution Width 14.1 % (11.5-14.5) Platelet Count 40 x10^3/uL (140-400) Neutrophils (%) (Auto) 94 % (31-73) Lymphocytes (%) (Auto) 2 % (24-48) Monocytes (%) (Auto) 3 % (0-9) Eosinophils (%) (Auto) 1 % (0-3) Basophils (%) (Auto) 0 % (0-3) Neutrophils # (Auto) 6.3 x10^3uL (1.8-7.7) Lymphocytes # (Auto) 0.1 x10^3/uL (1.0-4.8) Monocytes # (Auto) 0.2 x10^3/uL (0.0-1.1) Eosinophils # (Auto) 0.0 x10^3/uL (0.0-0.7) Basophils # (Auto) 0.0 x10^3/uL (0.0-0.2) Sodium Level 133 mmol/L (136-145) Potassium Level 3.2 mmol/L (3.5-5.1) Chloride Level 101 mmol/L (98-107) Carbon Dioxide Level 21 mmol/L (21-32) Anion Gap 11 (6-14) Blood Urea Nitrogen 13 mg/dL (8-26) Creatinine 1.4 mg/dL (0.7-1.3) Estimated GFR (Cockcroft-Gault) 72.0 Glucose Level 111 mg/dL (70-99) Calcium Level 7.5 mg/dL (8.5-10.1) O2 Saturation 92 % (92-99) Arterial Blood pH 7.52 (7.35-7.45) Arterial Blood pH (Temp corrected) 7.49 Arterial Blood pCO2 at Patient Temp 25 mmHg (35-46) Arterial Blood pCO2 (Temp correct) 28 mmHg Arterial Blood pO2 at Patient Temp 62 mmHg (85-108) Arterial Blood pO2 (Temp corrected) 72 mmHg Arterial Blood HCO3 20 mmol/L (21-28) Arterial Blood Base Excess -1 mmol/L (-3-3) FiO2 21.0 Test 10/11/17 12:15 Lactic Acid Level 2.7 mmol/L (0.4-2.0) Assessment and Plan Assessmemt and Plan Problems Medical Problems: (1) Elevated brain natriuretic peptide (BNP) level Status: Acute (2) HCAP (healthcare-associated pneumonia) Status: Acute (3) HIV (human immunodeficiency virus infection) Status: Acute (4) Immunosuppression Status: Acute (5) Lactic acid acidosis Status: Acute (6) Sepsis Status: Acute 40 MIN CC TIME Problems: Comment Review of Relevant I have reviewed the following items nain (where applicable) has been applied. Labs Laboratory Tests Test 10/09/17 23:31 10/10/17 00:01 10/10/17 04:04 10/10/17 05:00 O2 Saturation 95 % (92-99) Arterial Blood pH 7.51 (7.35-7.45) Arterial Blood pH (Temp corrected) 7.49 Arterial Blood pCO2 at Patient Temp 26 mmHg (35-46) Arterial Blood pCO2 (Temp correct) 27 mmHg Arterial Blood pO2 at Patient Temp 75 mmHg (85-108) Arterial Blood pO2 (Temp corrected) 82 mmHg Arterial Blood HCO3 20 mmol/L (21-28) Arterial Blood Base Excess -2 mmol/L (-3-3) Oxyhemoglobin 94.6 % Methemoglobin 0.7 % (0.0-1.9) Carbon Monoxide, Quantitative 0.1 % (0.0-1.9) FiO2 21 Lactic Acid Level 3.1 mmol/L (0.4-2.0) 3.1 mmol/L (0.4-2.0) Procalcitonin 0.65 ng/mL (0.00-0.10) Nasal Screen MRSA (PCR) Negative (Negative) Test 10/10/17 08:12 10/10/17 12:00 10/10/17 16:10 10/10/17 20:10 Lactic Acid Level 2.2 mmol/L (0.4-2.0) 3.6 mmol/L (0.4-2.0) 3.0 mmol/L (0.4-2.0) 3.3 mmol/L (0.4-2.0) Rapid Plasma Reagin Non reactive (Non Reactive) Cryptococcus Antigen Negative (Negative) Test 10/11/17 04:25 10/11/17 11:18 12/14/17 12:15 White Blood Count 6.7 x10^3/uL (4.0-11.0) Red Blood Count 3.91 x10^6/uL (4.30-5.70) Hemoglobin 12.2 g/dL (13.0-17.5) Hematocrit 36.3 % (39.0-53.0) Mean Corpuscular Volume 93 fL (79-100) Mean Corpuscular Hemoglobin 31 pg (25-35) Mean Corpuscular Hemoglobin Concent 34 g/dL (31-37) Red Cell Distribution Width 14.1 % (11.5-14.5) Platelet Count 40 x10^3/uL (140-400) Neutrophils (%) (Auto) 94 % (31-73) Lymphocytes (%) (Auto) 2 % (24-48) Monocytes (%) (Auto) 3 % (0-9) Eosinophils (%) (Auto) 1 % (0-3) Basophils (%) (Auto) 0 % (0-3) Neutrophils # (Auto) 6.3 x10^3uL (1.8-7.7) Lymphocytes # (Auto) 0.1 x10^3/uL (1.0-4.8) Monocytes # (Auto) 0.2 x10^3/uL (0.0-1.1) Eosinophils # (Auto) 0.0 x10^3/uL (0.0-0.7) Basophils # (Auto) 0.0 x10^3/uL (0.0-0.2) Sodium Level 133 mmol/L (136-145) Potassium Level 3.2 mmol/L (3.5-5.1) Chloride Level 101 mmol/L (98-107) Carbon Dioxide Level 21 mmol/L (21-32) Anion Gap 11 (6-14) Blood Urea Nitrogen 13 mg/dL (8-26) Creatinine 1.4 mg/dL (0.7-1.3) Estimated GFR (Cockcroft-Gault) 72.0 Glucose Level 111 mg/dL (70-99) Calcium Level 7.5 mg/dL (8.5-10.1) O2 Saturation 92 % (92-99) Arterial Blood pH 7.52 (7.35-7.45) Arterial Blood pH (Temp corrected) 7.49 Arterial Blood pCO2 at Patient Temp 25 mmHg (35-46) Arterial Blood pCO2 (Temp correct) 28 mmHg Arterial Blood pO2 at Patient Temp 62 mmHg (85-108) Arterial Blood pO2 (Temp corrected) 72 mmHg Arterial Blood HCO3 20 mmol/L (21-28) Arterial Blood Base Excess -1 mmol/L (-3-3) FiO2 21.0 Lactic Acid Level 2.7 mmol/L (0.4-2.0) Laboratory Tests Test 10/10/17 16:10 10/10/17 20:10 10/11/17 04:25 10/11/17 11:18 Lactic Acid Level 3.0 mmol/L (0.4-2.0) 3.3 mmol/L (0.4-2.0) White Blood Count 6.7 x10^3/uL (4.0-11.0) Red Blood Count 3.91 x10^6/uL (4.30-5.70) Hemoglobin 12.2 g/dL (13.0-17.5) Hematocrit 36.3 % (39.0-53.0) Mean Corpuscular Volume 93 fL (79-100) Mean Corpuscular Hemoglobin 31 pg (25-35) Mean Corpuscular Hemoglobin Concent 34 g/dL (31-37) Red Cell Distribution Width 14.1 % (11.5-14.5) Platelet Count 40 x10^3/uL (140-400) Neutrophils (%) (Auto) 94 % (31-73) Lymphocytes (%) (Auto) 2 % (24-48) Monocytes (%) (Auto) 3 % (0-9) Eosinophils (%) (Auto) 1 % (0-3) Basophils (%) (Auto) 0 % (0-3) Neutrophils # (Auto) 6.3 x10^3uL (1.8-7.7) Lymphocytes # (Auto) 0.1 x10^3/uL (1.0-4.8) Monocytes # (Auto) 0.2 x10^3/uL (0.0-1.1) Eosinophils # (Auto) 0.0 x10^3/uL (0.0-0.7) Basophils # (Auto) 0.0 x10^3/uL (0.0-0.2) Sodium Level 133 mmol/L (136-145) Potassium Level 3.2 mmol/L (3.5-5.1) Chloride Level 101 mmol/L (98-107) Carbon Dioxide Level 21 mmol/L (21-32) Anion Gap 11 (6-14) Blood Urea Nitrogen 13 mg/dL (8-26) Creatinine 1.4 mg/dL (0.7-1.3) Estimated GFR (Cockcroft-Gault) 72.0 Glucose Level 111 mg/dL (70-99) Calcium Level 7.5 mg/dL (8.5-10.1) O2 Saturation 92 % (92-99) Arterial Blood pH 7.52 (7.35-7.45) Arterial Blood pH (Temp corrected) 7.49 Arterial Blood pCO2 at Patient Temp 25 mmHg (35-46) Arterial Blood pCO2 (Temp correct) 28 mmHg Arterial Blood pO2 at Patient Temp 62 mmHg (85-108) Arterial Blood pO2 (Temp corrected) 72 mmHg Arterial Blood HCO3 20 mmol/L (21-28) Arterial Blood Base Excess -1 mmol/L (-3-3) FiO2 21.0 Test 10/11/17 12:15 Lactic Acid Level 2.7 mmol/L (0.4-2.0) Microbiology 10/09/17 Blood Culture - Preliminary, Resulted NO GROWTH AFTER 1 DAY Medications Current Medications Sodium Chloride 1,000 ml @ 1,000 mls/hr 1X ONCE IV Last administered on 10/10 01:22; Start 10/10/17 at 00:45; Stop 10/10/17 at 01:44; Status DC Acetaminophen (Tylenol) 1,000 mg 1X ONCE PO Last administered on 10/10/17 01 :07; Start 10/10/17 at 00:45; Stop 10/10/17 at 00:46; Status DC Vancomycin HCl (Vanco Per Pharmacy) 1 each PRN DAILY PRN MC SEE COMMENTS Last administered on 10/10/17 02:47; Start 10/10/17 at 00:30; Stop 10/10/17 at 10 :16; Status DC Piperacillin Sod/ Tazobactam Sod 3.375 gm/Dextrose 50 ml @ 100 mls/hr 1X ONCE IV ; Start 10/10/17 at 00:30; Stop 10/10/17 at 00:59; Status UNV Piperacillin Sod/ Tazobactam Sod (Zosyn) 3.375 gm 1X ONCE IVP Last administered on 10/10/17 00:51; Start 10/10/17 at 00:30; Stop 10/10/17 at 00 :31; Status DC Vancomycin HCl 1.75 gm/Dextrose/ Sodium Chloride 500 ml @ 250 mls/hr 1X ONCE IV Last administered on 10/10/17 00:51; Start 10/10/17 at 01:00; Stop 10/10 at 02:59; Status DC Azithromycin 500 mg/Sodium Chloride 250 ml @ 250 mls/hr 1X ONCE IV ; Start at 01:15; Stop 10/10/17 at 02:14; Status UNV Atovaquone (Mepron) 750 mg 1X ONCE PO Last administered on 10/10/17 01:57; Start 10/10/17 at 01:30; Stop 10/10/17 at 01:31; Status DC Ondansetron HCl (Zofran) 4 mg PRN Q8HRS PRN IV NAUSEA/VOMITING; Start at 01:15; Stop 10/11/17 at 01:14; Status DC Azithromycin 250 ml @ 250 mls/hr 1X ONCE IV Last administered on 10/10/17 02:02; Start 10/10/17 at 01:30; Stop 10/10/17 at 02:29; Status DC Prednisone (Prednisone) 40 mg 1X ONCE PO Last administered on 10/10/17 01:57 ; Start 10/10/17 at 02:00; Stop 10/10/17 at 02:01; Status DC Sodium Chloride 1,000 ml @ 1,000 mls/hr Q1H IV Last administered on 03:30; Start 10/10/17 at 02:30; Stop 10/10/17 at 04:25; Status DC Sodium Chloride 500 ml @ 1,000 mls/hr PRN Q30MIN PRN IV SEE COMMENTS; Start 10/10/17 at 02:15 Norepinephrine Bitartrate 250 ml @ 0 mls/hr CONT PRN IV SEE I/O RECORD; Start 10/10/17 at 02:15; Stop 10/10/17 at 08:33; Status DC Dobutamine HCl/ Dextrose 250 ml @ 0 mls/hr CONT PRN IV SEE I/O RECORD; Start 10/10/17 at 02:15; Stop 10/10/17 at 08:33; Status DC Vancomycin HCl 1.25 gm/Sodium Chloride 250 ml @ 167 mls/hr Q12H IV ; Start at 13:00; Stop 10/10/17 at 13:00; Status DC Vancomycin HCl 1 each 1X ONCE MC ; Start 10/11/17 at 12:30; Stop 10/11/17 at 12:31; Status Cancel Ibuprofen (Motrin) 600 mg PRN Q6HRS PRN PO INFLAMMATION Last administered on 03:41; Start 10/10/17 at 03:30 Chlorpromazine HCl (Thorazine) 25 mg PRN Q6HRS PRN PO HICCUPS Last administered on 10/10/17 03:41; Start 10/10/17 at 03:30; Stop 10/10/17 at 08 :33; Status DC Acetaminophen/ Hydrocodone Bitart (Lortab 5/325) 1 tab PRN Q6HRS PRN PO PAIN Last administered on 10/10/17 18:43; Start 10/10/17 at 08:15 Acetaminophen/ Hydrocodone Bitart (Lortab 5/325) 1 tab QID PRN PO pain; Start 10/10/17 at 08:15; Status UNV Atovaquone (Mepron) 750 mg BID PO Last administered on 10/11/17 09:00; Start 10/10/17 at 09:00; Stop 10/11/17 at 11:21; Status DC Azithromycin 500 mg/Sodium Chloride 250 ml @ 250 mls/hr Q24H IV Last administered on 10/10/17 09:20; Start 10/10/17 at 09:00 Levofloxacin/ Dextrose 150 ml @ 100 mls/hr Q24H IV Last administered on 09:21; Start 10/10/17 at 09:00 Chlorpromazine HCl (Thorazine) 25 mg TID PO Last administered on 10/11/17 08: 59; Start 10/10/17 at 09:00 Albuterol/ Ipratropium (Duoneb) 3 ml RTQID NEB Last administered on 10/11/17 11:43; Start 10/10/17 at 09:00 Albuterol Sulfate (Ventolin Neb Soln) 2.5 mg PRN Q4HRS PRN NEB SHORTNESS OF BREATH; Start 10/10/17 at 08:45 Guaifenesin (Robitussin Dm) 10 ml PRN Q6HRS PRN PO COUGH; Start 10/10/17 at 08 :45 Sodium Chloride 1,000 ml @ 100 mls/hr Q10H IV Last administered on 10/11/17 04:45; Start 10/10/17 at 08:45 Iohexol (Omnipaque 240 Mg/ml) 30 ml 1X ONCE PO Last administered on 11:20; Start 10/10/17 at 09:00; Stop 10/10/17 at 09:01; Status DC Iohexol (Omnipaque 300 Mg/ml) 75 ml 1X ONCE IV Last administered on 12:45; Start 10/10/17 at 09:00; Stop 10/10/17 at 09:01; Status DC Info (Do NOT chart on this entry -- for MONITORING) 1 each PRN DAILY PRN MC SEE COMMENTS; Start 10/10/17 at 09:00; Stop 10/12/17 at 08:59 Nicotine (Nicoderm Cq 21mg) 1 patch PRN DAILY PRN TD SMOKING CESSATION; Start 10/10/17 at 09:30 Acetaminophen (Tylenol) 650 mg PRN Q6HRS PRN PO FEVER Last administered on 08:59; Start 10/10/17 at 16:15 Active Scripts Active [place] 5-325 Tablet (Acetaminophen/Hydrocodone Bitart) 1 Each Tablet 1 Tab PO Q4- 6HRS Bactrim Ds Tablet (Sulfamethoxazole/Trimethoprim) 1 Each Tablet 1 Tab PO BID [place] 5-325 Tablet (Acetaminophen/Hydrocodone Bitart) 1 Each Tablet 1 Tab PO PRN Q6HRS PRN Bactrim Ds Tablet (Sulfamethoxazole/Trimethoprim) 1 Each Tablet 1 Tab PO BID Vitals/I & O Vital Sign - Last 24 Hours 10/10/17 10/10/17 10/10/17 10/10/17 13:58 16:00 18:43 19:25 Temp 103.2 102.7 103.2 102.7 Pulse 110 114 Resp 24 24 20 B/P (MAP) 119/60 (79) 128/80 (96) Pulse Ox 97 98 97 96 O2 Delivery Room Air Room Air Room Air Room Air 10/10/17 10/10/17 10/10/17 10/10/17 19:45 20:00 21:22 23:00 Temp 102.7 102.7 Pulse 125 Resp 22 B/P (MAP) 121/79 (93) Pulse Ox 97 96 O2 Delivery Room Air Room Air Room Air Room Air O2 Flow Rate 97.0 97.0 10/11/17 10/11/17 10/11/17 10/11/17 03:00 07:25 08:07 10:40 Temp 102.6 102.7 102.6 102.6 102.7 102.6 Pulse 134 147 139 Resp 22 24 24 B/P (MAP) 131/67 (88) 144/77 (99) 118/56 (76) Pulse Ox 97 94 94 93 O2 Delivery Room Air Room Air Room Air Room Air 10/11/17 11:44 O2 Delivery Room Air Intake and Output 10/10/17 10/10/17 10/11/17 15:00 23:00 07:00 Intake Total 1200 ml Output Total 225 ml Balance -225 ml 1200 ml ANA MARIA VELAZQUEZ MD Oct 11, 2017 13:16
[2017-10-11] MEDS: AZITHROMYCIN 500 MG in IV NORMAL SALINE 250ML 250 ML IV SCH (13:22)
[2017-10-11] MEDS ORDERED: NOREPINEPHRIN PREMIX 250 ML IV PRN (13:30)
[2017-10-11] MEDS ORDERED: IV NORMAL SALINE 500ML BAG 500 ML IV PRN (13:30)
[2017-10-11] MEDS ORDERED: MEROPENEM 500 MG in IV NORMAL SALINE 50ML 50 ML IV SCH (14:00)
[2017-10-11 14:09] LABS: DIRECT BILIRUBIN 0.2 mg/dL (0.0-0.2); TOTAL BILIRUBIN 0.4 mg/dL (0.2-1.0); TOTAL PROTEIN 4.7 g/dL (6.4-8.2)
[2017-10-11] MEDS ORDERED: POTASSIUM CHLORIDE 20 MEQ TABLET.ER. PO ONE (14:30)
[2017-10-11] MEDS: IV NORMAL SALINE 1000ML BAG 1,920 ML IV SCH ×3 (14:34→15:29)
[2017-10-11 14:55] LABS: INR 1.6 (0.8-1.1); PROTHROMBIN TIME PATIENT 18.1 SEC (11.7-14.0)
[2017-10-11] MEDS: MEROPENEM IV Push 500 MG VIAL. IVP SCH ×2 (16:13→22:47)
--- NOTE | 2017-10-11 16:21 | RAD ---
Frontal view of the Chest 10/11/2017 5:44 PM Indication: sepsis Comparison: None Findings: Low lung volumes are noted. This augments the cardiomediastinal silhouette and pulmonary vasculature. There is mild right basilar infiltrate or atelectasis. No pneumothorax or pleural effusion is seen. Heart size appears to be normal. Bony thorax is grossly intact. Impression: Decreased inspiratory volumes with mild right basilar atelectasis or infiltrate.
[2017-10-11 18:16] LABS: BILIRUBIN,URINE NEGATIVE (NEG); GLUCOSE,URINE NEGATIVE (NEG); NITRITE,URINE NEGATIVE (NEG); PROTEIN,URINE 100 mg/dL (NEG-TRACE); UROBILINOGEN,URINE 0.2 mg/dL (0.2 mg/dL)
[2017-10-11 18:29] LABS: BACTERIA,URINE 0 /HPF (0-FEW); RBC,URINE 0 /HPF (0-2); SQUAMOUS EPITHELIAL CELL,UR OCC /LPF; WBC,URINE OCC /HPF (0-4)
[2017-10-11 20:11] LABS: TOXOPLASMA IGG <3.0 IU/mL (0.0-7.1); TOXOPLASMA IGM <3.0 AU/mL (0.0-7.9)
[2017-10-11] MEDS: IBUPROFEN 600 MG TABLET. PO PRN (21:07)
[2017-10-11] MEDS: HYDROcodone/APAP 5/325MG 1 TAB TABLET PO PRN (21:08)
[2017-10-12] VITALS (23 sets, daily range): BP systolic 93–150; BP diastolic 56–93
[2017-10-12] MEDS: IV NORMAL SALINE 1000ML BAG 1,000 ML IV SCH ×5 (03:41→19:26)
[2017-10-12] MEDS: ACETAMINOPHEN 325 MG TABLET. PO PRN ×2 (06:13→17:26)
[2017-10-12] MEDS: MEROPENEM IV Push 500 MG VIAL. IVP SCH ×3 (06:14→21:58)
--- NOTE | 2017-10-12 07:49 | PDOC ---
Infectious Disease Note Subjective Subjective not feeling well, sob and exfoliating, little better then yesterday, fever is less ROS ROS diarrhea ++, no n/v/ no headache, no cp does have sob Vital Sign Vital Signs Vital Signs Date Time Temp Pulse Resp B/P (MAP) Pulse Ox O2 Delivery O2 Flow Rate FiO2 10/12/17 07:03 146 28 114/61 (78) 96 Nasal Cannula 2.0 10/12/17 06:37 100.3 100.3 Physical Exam PHYSICAL EXAM GENERAL: Alert in mild distress HEENT: PERRL, OC/OP NECK: Supple, no JVD, no LN LUNGS: Clear HEART: S1S2, no gallop, no murmur ABD: Soft, NT, no organomegaly, no rebound EXT: No edema, no cyanosis 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, 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 3, no focal neurologic deficit SKIN: rash ++, no mucous memb involvement IV: ok Labs Lab Laboratory Tests Test 10/11/17 11:18 10/11/17 12:15 10/11/17 14:25 10/11/17 17:15 O2 Saturation 92 % (92-99) Arterial Blood pH 7.52 (7.35-7.45) Arterial Blood pH (Temp corrected) 7.49 Arterial Blood pCO2 at Patient Temp 25 mmHg (35-46) Arterial Blood pCO2 (Temp correct) 28 mmHg Arterial Blood pO2 at Patient Temp 62 mmHg (85-108) Arterial Blood pO2 (Temp corrected) 72 mmHg Arterial Blood HCO3 20 mmol/L (21-28) Arterial Blood Base Excess -1 mmol/L (-3-3) FiO2 21.0 Lactic Acid Level 2.7 mmol/L (0.4-2.0) 2.8 mmol/L (0.4-2.0) Prothrombin Time 18.1 SEC (11.7-14.0) Prothromb Time International Ratio 1.6 (0.8-1.1) Activated Partial Thromboplast Time 44 SEC (24-38) Fibrinogen 421 mg/dL (200-440) D-Dimer (Wilma) 6.57 ug/mlFEU (0.00-0.50) Test 10/11/17 18:00 Urine Collection Type Unknown Urine Color Dilma Urine Clarity Clear Urine pH 6.0 Urine Specific [place] 1.025 Urine Protein 100 mg/dL (NEG-TRACE) Urine Glucose (UA) Negative mg/dL (NEG) Urine Ketones (Stick) Negative mg/dL (NEG) Urine Blood Negative (NEG) Urine Nitrite Negative (NEG) Urine Bilirubin Negative (NEG) Urine Urobilinogen Dipstick 0.2 mg/dL (0.2 mg/dL) Urine Leukocyte Esterase Negative (NEG) Urine RBC 0 /HPF (0-2) Urine WBC Occ /HPF (0-4) Urine Squamous Epithelial Cells Occ /LPF Urine Amorphous Sediment Present /HPF Urine Bacteria 0 /HPF (0-FEW) Urine Mucus Slight /LPF Micro culture neg Objective Assessment HIV/AIDS Fever Exfoliative dermatitis,,, drug , ? had rash before mepron started here but he did have at [facility] ? [facility] with exfoliation Recent pneumonia Non compliance Diarrhea Ileitis Plan Plan of Care workup pt says he is not taking his ARV, and he does not have it. will obtain genotype from [facility] check LA and ABG d/w dr Roth d/w pts mother at his request sick and very complicated pt AUSTEN KO MD Oct 12, 2017 07:49
[2017-10-12] MEDS: chlorproMAZINE 25 MG TABLET PO SCH ×3 (08:22→21:08)
[2017-10-12] MEDS: ATOVAQUONE 750 MG/5 ML ORAL.SUSP. PO SCH (08:22)
[2017-10-12] MEDS: [UNRECOGNIZED DRUG - OTHER] PO SCH (08:24)
[2017-10-12] MEDS: methylPREDNISolone SOD SUCC PF 40 MG/ML VIAL. IV SCH ×2 (08:24→21:08)
[2017-10-12] MEDS: HYDROcodone/APAP 5/325MG 1 TAB TABLET PO PRN ×2 (08:28→21:07)
[2017-10-12] MEDS: ONDANSETRON PF 4 MG/2 ML VIAL. IV PRN ×2 (09:09→17:24)
[2017-10-12] MEDS: AZITHROMYCIN 500 MG in IV NORMAL SALINE 250ML 250 ML IV SCH (09:09)
[2017-10-12] MEDS ORDERED: POTASSIUM CHLORIDE 20 MEQ TABLET.ER. PO ONE (09:30)
[2017-10-12] MEDS: IPRATRPIUM/ALBUTEROL 0.5/2.5MG 3 ML NEBU. NEB SCH ×4 (09:36→20:22)
[2017-10-12] MEDS: METOPROLOL TARTRATE 5 MG/5 ML VIAL. IVP SCH ×4 (10:02→23:55)
--- NOTE | 2017-10-12 10:18 | PDOC ---
PROGRESS NOTES Chief Complaint Chief Complaint Assessment/Plan #1 AIDS on HAART #2 fever in an immunocompromised #3 mild to moderate PCM #4 asthma chronic stable #5. HCAP 7 smoker #8 sinus tachycardia History of Present Illness History of Present Illness NOw having diarrhea since last night, needing a rectal tube now. Sinus tachycardia 140s, still feels weak, sick looking Temperatures last night LDH still elevated at 2.8 Potassium low at 3.2 Cryoptococcus, toxoplasmosis, RPR all negative or nonreactive. Blood cultures no growth preliminary Influenza Test in [facility] not too long ago within last week was negative both both a and B Viral load still pending Last CD4 count known to us is 50 He remains critically ill Plan Follow ID recommendations Keep ICU once C. difficile is negative then we will do Imodium Keep rectal tube for now Lopressor 5 minute IV every 6 when necessary for the tachycardia, watch out for hypotension He is running low. Dopamine on standby. EKG now Recheck lactate tomorrow. Replace potassium 40 by mouth 1. Check an echocardiogram CC time 31 minutes Vitals Vitals Vital Signs Date Time Temp Pulse Resp B/P (MAP) Pulse Ox O2 Delivery O2 Flow Rate FiO2 10/12/17 10:02 139 120/64 10/12/17 10:00 99.7 21 99 Nasal Cannula 2.0 99.7 Physical Exam Physical Exam NECK: Supple, no JVD, no LN LUNGS: Clear RR =30 HEART: S1S2, no gallop, no murmur ABD: Soft, NT, no organomegaly, no rebound EXT: No edema, no cyanosis CLINIC COORDINATOR: Alert, oriented x 3, no focal neurologic deficit SKIN: rash, with exfoliation, no mucus membrane involvement General: Alert, Oriented X3, Cooperative, No acute distress, Other (cold, multiple blankets on) Heart: Other (TACHY RATE 130) Lungs: Clear Abdomen: Normal bowel sounds, Soft, No tenderness, No hepatosplenomegaly, No masses Extremities: No clubbing, No cyanosis, No edema, Normal pulses, No tenderness/ swelling Skin: Other (flaky dry skin all over the face chest upper extremity) Labs LABS Laboratory Tests Test 10/11/17 11:18 10/11/17 12:15 10/11/17 14:25 10/11/17 17:15 O2 Saturation 92 % (92-99) Arterial Blood pH 7.52 (7.35-7.45) Arterial Blood pH (Temp corrected) 7.49 Arterial Blood pCO2 at Patient Temp 25 mmHg (35-46) Arterial Blood pCO2 (Temp correct) 28 mmHg Arterial Blood pO2 at Patient Temp 62 mmHg (85-108) Arterial Blood pO2 (Temp corrected) 72 mmHg Arterial Blood HCO3 20 mmol/L (21-28) Arterial Blood Base Excess -1 mmol/L (-3-3) FiO2 21.0 Lactic Acid Level 2.7 mmol/L (0.4-2.0) 2.8 mmol/L (0.4-2.0) Prothrombin Time 18.1 SEC (11.7-14.0) Prothromb Time International Ratio 1.6 (0.8-1.1) Activated Partial Thromboplast Time 44 SEC (24-38) Fibrinogen 421 mg/dL (200-440) D-Dimer (Wilma) 6.57 ug/mlFEU (0.00-0.50) Test 10/11/17 18:00 Urine Collection Type Unknown Urine Color Dilma Urine Clarity Clear Urine pH 6.0 Urine Specific [place] 1.025 Urine Protein 100 mg/dL (NEG-TRACE) Urine Glucose (UA) Negative mg/dL (NEG) Urine Ketones (Stick) Negative mg/dL (NEG) Urine Blood Negative (NEG) Urine Nitrite Negative (NEG) Urine Bilirubin Negative (NEG) Urine Urobilinogen Dipstick 0.2 mg/dL (0.2 mg/dL) Urine Leukocyte Esterase Negative (NEG) Urine RBC 0 /HPF (0-2) Urine WBC Occ /HPF (0-4) Urine Squamous Epithelial Cells Occ /LPF Urine Amorphous Sediment Present /HPF Urine Bacteria 0 /HPF (0-FEW) Urine Mucus Slight /LPF Review of Systems Review of Systems Very weak, prefers to sleep, nods on every question I ask hence limited ROS Assessment and Plan Assessmemt and Plan Problems Medical Problems: (1) Elevated brain natriuretic peptide (BNP) level Status: Acute (2) HCAP (healthcare-associated pneumonia) Status: Acute (3) HIV (human immunodeficiency virus infection) Status: Acute (4) Immunosuppression Status: Acute (5) Lactic acid acidosis Status: Acute (6) Sepsis Status: Acute Problems: Comment Review of Relevant I have reviewed the following items nain (where applicable) has been applied. Labs Laboratory Tests Test 10/10/17 12:00 10/10/17 16:10 10/10/17 20:10 10/11/17 04:25 Lactic Acid Level 3.6 mmol/L (0.4-2.0) 3.0 mmol/L (0.4-2.0) 3.3 mmol/L (0.4-2.0) Rapid Plasma Reagin Non reactive (Non Reactive) Cryptococcus Antigen Negative (Negative) Toxoplasma IgG Antibody <3.0 IU/mL (0.0-7.1) Toxoplasma IgM Antibody <3.0 AU/mL (0.0-7.9) Toxoplasma Comment Comment (.) White Blood Count 6.7 x10^3/uL (4.0-11.0) Red Blood Count 3.91 x10^6/uL (4.30-5.70) Hemoglobin 12.2 g/dL (13.0-17.5) Hematocrit 36.3 % (39.0-53.0) Mean Corpuscular Volume 93 fL (79-100) Mean Corpuscular Hemoglobin 31 pg (25-35) Mean Corpuscular Hemoglobin Concent 34 g/dL (31-37) Red Cell Distribution Width 14.1 % (11.5-14.5) Platelet Count 40 x10^3/uL (140-400) Neutrophils (%) (Auto) 94 % (31-73) Lymphocytes (%) (Auto) 2 % (24-48) Monocytes (%) (Auto) 3 % (0-9) Eosinophils (%) (Auto) 1 % (0-3) Basophils (%) (Auto) 0 % (0-3) Neutrophils # (Auto) 6.3 x10^3uL (1.8-7.7) Lymphocytes # (Auto) 0.1 x10^3/uL (1.0-4.8) Monocytes # (Auto) 0.2 x10^3/uL (0.0-1.1) Eosinophils # (Auto) 0.0 x10^3/uL (0.0-0.7) Basophils # (Auto) 0.0 x10^3/uL (0.0-0.2) Sodium Level 133 mmol/L (136-145) Potassium Level 3.2 mmol/L (3.5-5.1) Chloride Level 101 mmol/L (98-107) Carbon Dioxide Level 21 mmol/L (21-32) Anion Gap 11 (6-14) Blood Urea Nitrogen 13 mg/dL (8-26) Creatinine 1.4 mg/dL (0.7-1.3) Estimated GFR (Cockcroft-Gault) 72.0 Glucose Level 111 mg/dL (70-99) Calcium Level 7.5 mg/dL (8.5-10.1) Total Bilirubin 0.4 mg/dL (0.2-1.0) Direct Bilirubin 0.2 mg/dL (0.0-0.2) Aspartate Amino Transf (AST/SGOT) 45 U/L (15-37) Alanine Aminotransferase (ALT/SGPT) 20 U/L (16-63) Alkaline Phosphatase 56 U/L (46-116) Total Protein 4.7 g/dL (6.4-8.2) Albumin 2.0 g/dL (3.4-5.0) Procalcitonin 0.66 ng/mL (0.00-0.10) Test 10/11/17 11:18 10/11/17 12:15 10/11/17 14:25 10/11/17 17:15 O2 Saturation 92 % (92-99) Arterial Blood pH 7.52 (7.35-7.45) Arterial Blood pH (Temp corrected) 7.49 Arterial Blood pCO2 at Patient Temp 25 mmHg (35-46) Arterial Blood pCO2 (Temp correct) 28 mmHg Arterial Blood pO2 at Patient Temp 62 mmHg (85-108) Arterial Blood pO2 (Temp corrected) 72 mmHg Arterial Blood HCO3 20 mmol/L (21-28) Arterial Blood Base Excess -1 mmol/L (-3-3) FiO2 21.0 Lactic Acid Level 2.7 mmol/L (0.4-2.0) 2.8 mmol/L (0.4-2.0) Prothrombin Time 18.1 SEC (11.7-14.0) Prothromb Time International Ratio 1.6 (0.8-1.1) Activated Partial Thromboplast Time 44 SEC (24-38) Fibrinogen 421 mg/dL (200-440) D-Dimer (Wilma) 6.57 ug/mlFEU (0.00-0.50) Test 10/11/17 18:00 Urine Collection Type Unknown Urine Color Dilma Urine Clarity Clear Urine pH 6.0 Urine Specific [place] 1.025 Urine Protein 100 mg/dL (NEG-TRACE) Urine Glucose (UA) Negative mg/dL (NEG) Urine Ketones (Stick) Negative mg/dL (NEG) Urine Blood Negative (NEG) Urine Nitrite Negative (NEG) Urine Bilirubin Negative (NEG) Urine Urobilinogen Dipstick 0.2 mg/dL (0.2 mg/dL) Urine Leukocyte Esterase Negative (NEG) Urine RBC 0 /HPF (0-2) Urine WBC Occ /HPF (0-4) Urine Squamous Epithelial Cells Occ /LPF Urine Amorphous Sediment Present /HPF Urine Bacteria 0 /HPF (0-FEW) Urine Mucus Slight /LPF Laboratory Tests Test 10/11/17 11:18 10/11/17 12:15 10/11/17 14:25 10/11/17 17:15 O2 Saturation 92 % (92-99) Arterial Blood pH 7.52 (7.35-7.45) Arterial Blood pH (Temp corrected) 7.49 Arterial Blood pCO2 at Patient Temp 25 mmHg (35-46) Arterial Blood pCO2 (Temp correct) 28 mmHg Arterial Blood pO2 at Patient Temp 62 mmHg (85-108) Arterial Blood pO2 (Temp corrected) 72 mmHg Arterial Blood HCO3 20 mmol/L (21-28) Arterial Blood Base Excess -1 mmol/L (-3-3) FiO2 21.0 Lactic Acid Level 2.7 mmol/L (0.4-2.0) 2.8 mmol/L (0.4-2.0) Prothrombin Time 18.1 SEC (11.7-14.0) Prothromb Time International Ratio 1.6 (0.8-1.1) Activated Partial Thromboplast Time 44 SEC (24-38) Fibrinogen 421 mg/dL (200-440) D-Dimer (Wilma) 6.57 ug/mlFEU (0.00-0.50) Test 10/11/17 18:00 Urine Collection Type Unknown Urine Color Dilma Urine Clarity Clear Urine pH 6.0 Urine Specific [place] 1.025 Urine Protein 100 mg/dL (NEG-TRACE) Urine Glucose (UA) Negative mg/dL (NEG) Urine Ketones (Stick) Negative mg/dL (NEG) Urine Blood Negative (NEG) Urine Nitrite Negative (NEG) Urine Bilirubin Negative (NEG) Urine Urobilinogen Dipstick 0.2 mg/dL (0.2 mg/dL) Urine Leukocyte Esterase Negative (NEG) Urine RBC 0 /HPF (0-2) Urine WBC Occ /HPF (0-4) Urine Squamous Epithelial Cells Occ /LPF Urine Amorphous Sediment Present /HPF Urine Bacteria 0 /HPF (0-FEW) Urine Mucus Slight /LPF Microbiology 10/09/17 Blood Culture - Preliminary, Resulted NO GROWTH AFTER 2 DAYS Medications Current Medications Sodium Chloride 1,000 ml @ 1,000 mls/hr 1X ONCE IV Last administered on 10/10 01:22; Start 10/10/17 at 00:45; Stop 10/10/17 at 01:44; Status DC Acetaminophen (Tylenol) 1,000 mg 1X ONCE PO Last administered on 10/10/17 01 :07; Start 10/10/17 at 00:45; Stop 10/10/17 at 00:46; Status DC Vancomycin HCl (Vanco Per Pharmacy) 1 each PRN DAILY PRN MC SEE COMMENTS Last administered on 10/10/17 02:47; Start 10/10/17 at 00:30; Stop 10/10/17 at 10 :16; Status DC Piperacillin Sod/ Tazobactam Sod 3.375 gm/Dextrose 50 ml @ 100 mls/hr 1X ONCE IV ; Start 10/10/17 at 00:30; Stop 10/10/17 at 00:59; Status UNV Piperacillin Sod/ Tazobactam Sod (Zosyn) 3.375 gm 1X ONCE IVP Last administered on 10/10/17 00:51; Start 10/10/17 at 00:30; Stop 10/10/17 at 00 :31; Status DC Vancomycin HCl 1.75 gm/Dextrose/ Sodium Chloride 500 ml @ 250 mls/hr 1X ONCE IV Last administered on 10/10/17 00:51; Start 10/10/17 at 01:00; Stop 10/10 at 02:59; Status DC Azithromycin 500 mg/Sodium Chloride 250 ml @ 250 mls/hr 1X ONCE IV ; Start at 01:15; Stop 10/10/17 at 02:14; Status UNV Atovaquone (Mepron) 750 mg 1X ONCE PO Last administered on 10/10/17 01:57; Start 10/10/17 at 01:30; Stop 10/10/17 at 01:31; Status DC Ondansetron HCl (Zofran) 4 mg PRN Q8HRS PRN IV NAUSEA/VOMITING; Start at 01:15; Stop 10/11/17 at 01:14; Status DC Azithromycin 250 ml @ 250 mls/hr 1X ONCE IV Last administered on 10/10/17 02:02; Start 10/10/17 at 01:30; Stop 10/10/17 at 02:29; Status DC Prednisone (Prednisone) 40 mg 1X ONCE PO Last administered on 10/10/17 01:57 ; Start 10/10/17 at 02:00; Stop 10/10/17 at 02:01; Status DC Sodium Chloride 1,000 ml @ 1,000 mls/hr Q1H IV Last administered on 03:30; Start 10/10/17 at 02:30; Stop 10/10/17 at 04:25; Status DC Sodium Chloride 500 ml @ 1,000 mls/hr PRN Q30MIN PRN IV SEE COMMENTS; Start 10/10/17 at 02:15 Norepinephrine Bitartrate 250 ml @ 0 mls/hr CONT PRN IV SEE I/O RECORD; Start 10/10/17 at 02:15; Stop 10/10/17 at 08:33; Status DC Dobutamine HCl/ Dextrose 250 ml @ 0 mls/hr CONT PRN IV SEE I/O RECORD; Start 10/10/17 at 02:15; Stop 10/10/17 at 08:33; Status DC Vancomycin HCl 1.25 gm/Sodium Chloride 250 ml @ 167 mls/hr Q12H IV ; Start at 13:00; Stop 10/10/17 at 13:00; Status DC Vancomycin HCl 1 each 1X ONCE MC ; Start 10/11/17 at 12:30; Stop 10/11/17 at 12:31; Status Cancel Ibuprofen (Motrin) 600 mg PRN Q6HRS PRN PO INFLAMMATION Last administered on 21:07; Start 10/10/17 at 03:30 Chlorpromazine HCl (Thorazine) 25 mg PRN Q6HRS PRN PO HICCUPS Last administered on 10/10/17 03:41; Start 10/10/17 at 03:30; Stop 10/10/17 at 08 :33; Status DC Acetaminophen/ Hydrocodone Bitart (Lortab 5/325) 1 tab PRN Q6HRS PRN PO PAIN Last administered on 10/12/17 08:28; Start 10/10/17 at 08:15 Acetaminophen/ Hydrocodone Bitart (Lortab 5/325) 1 tab QID PRN PO pain; Start 10/10/17 at 08:15; Status UNV Atovaquone (Mepron) 750 mg BID PO Last administered on 10/11/17 09:00; Start 10/10/17 at 09:00; Stop 10/11/17 at 11:21; Status DC Azithromycin 500 mg/Sodium Chloride 250 ml @ 250 mls/hr Q24H IV Last administered on 10/12/17 09:09; Start 10/10/17 at 09:00 Levofloxacin/ Dextrose 150 ml @ 100 mls/hr Q24H IV Last administered on 08:22; Start 10/10/17 at 09:00 Chlorpromazine HCl (Thorazine) 25 mg TID PO Last administered on 10/12/17 08: 22; Start 10/10/17 at 09:00 Albuterol/ Ipratropium (Duoneb) 3 ml RTQID NEB Last administered on 10/12/17 09:36; Start 10/10/17 at 09:00 Albuterol Sulfate (Ventolin Neb Soln) 2.5 mg PRN Q4HRS PRN NEB SHORTNESS OF BREATH; Start 10/10/17 at 08:45 Guaifenesin (Robitussin Dm) 10 ml PRN Q6HRS PRN PO COUGH; Start 10/10/17 at 08 :45 Sodium Chloride 1,000 ml @ 100 mls/hr Q10H IV Last administered on 10/11/17 04:45; Start 10/10/17 at 08:45; Stop 10/11/17 at 15:58; Status DC Iohexol (Omnipaque 240 Mg/ml) 30 ml 1X ONCE PO Last administered on 11:20; Start 10/10/17 at 09:00; Stop 10/10/17 at 09:01; Status DC Iohexol (Omnipaque 300 Mg/ml) 75 ml 1X ONCE IV Last administered on 12:45; Start 10/10/17 at 09:00; Stop 10/10/17 at 09:01; Status DC Info (Do NOT chart on this entry -- for MONITORING) 1 each PRN DAILY PRN MC SEE COMMENTS; Start 10/10/17 at 09:00; Stop 10/12/17 at 08:59; Status DC Nicotine (Nicoderm Cq 21mg) 1 patch PRN DAILY PRN TD SMOKING CESSATION; Start 10/10/17 at 09:30 Acetaminophen (Tylenol) 650 mg PRN Q6HRS PRN PO FEVER Last administered on 06:13; Start 10/10/17 at 16:15 Sodium Chloride 1,920 ml @ 1,920 mls/hr Q1H IV Last administered on 15:29; Start 10/11/17 at 13:29; Stop 10/11/17 at 15:56; Status DC Sodium Chloride 500 ml @ 1,000 mls/hr PRN Q30MIN PRN IV SEE COMMENTS; Start 10/11/17 at 13:30 Sodium Chloride 1,000 ml @ 175 mls/min Q6M IV Last administered on 10/11/17 13:51; Start 10/11/17 at 13:33; Stop 10/11/17 at 16:02; Status DC Norepinephrine Bitartrate 250 ml @ 0 mls/hr CONT PRN IV SEE I/O RECORD; Start 10/11/17 at 13:30 Dobutamine HCl/ Dextrose 250 ml @ 0 mls/hr CONT PRN IV SEE I/O RECORD; Start 10/11/17 at 13:30 Meropenem 500 mg/ Sodium Chloride 50 ml @ 100 mls/hr Q8HRS IV ; Start at 14:00; Stop 10/11/17 at 14:00; Status DC Meropenem (Merrem) 500 mg Q8HRS IVP Last administered on 10/12/17 06:14; Start 10/11/17 at 14:00 Potassium Chloride (Klor-Con) 40 meq 1X ONCE PO Last administered on 14:56; Start 10/11/17 at 14:30; Stop 10/11/17 at 14:34; Status DC Sodium Chloride 1,000 ml @ 175 mls/hr Q5H43M IV Last administered on 09:10; Start 10/11/17 at 16:15 Methylprednisolone Sodium Succinate (SOLU-Medrol 40MG VIAL) 40 mg Q12HR IV Last administered on 10/12/17 08:24; Start 10/12/17 at 09:00 Atovaquone (Mepron) 750 mg DAILYWBKFT PO Last administered on 10/12/17 08:22 ; Start 10/12/17 at 08:00 Ondansetron HCl (Zofran) 4 mg PRN Q6HRS PRN IV NAUSEA/VOMITING Last administered on 10/12/17 09:09; Start 10/12/17 at 09:00 Potassium Chloride (Klor-Con) 40 meq 1X ONCE PO Last administered on 10:01; Start 10/12/17 at 09:30; Stop 10/12/17 at 09:31; Status DC Potassium Chloride (Klor-Con) 40 meq DAILYWBKFT PO ; Start 10/13/17 at 08:00 Metoprolol Tartrate (Lopressor Vial) 5 mg Q6HRS IVP Last administered on 10:02; Start 10/12/17 at 09:30 Active Scripts Active [place] 5-325 Tablet (Acetaminophen/Hydrocodone Bitart) 1 Each Tablet 1 Tab PO Q4- 6HRS Bactrim Ds Tablet (Sulfamethoxazole/Trimethoprim) 1 Each Tablet 1 Tab PO BID [place] 5-325 Tablet (Acetaminophen/Hydrocodone Bitart) 1 Each Tablet 1 Tab PO PRN Q6HRS PRN Bactrim Ds Tablet (Sulfamethoxazole/Trimethoprim) 1 Each Tablet 1 Tab PO BID Vitals/I & O Vital Sign - Last 24 Hours 10/11/17 10/11/17 10/11/17 10/11/17 10:40 11:44 14:00 14:30 Temp 102.6 101.8 102.6 101.8 Pulse 139 137 Resp 24 24 B/P (MAP) 118/56 (76) 128/73 (91) Pulse Ox 93 97 O2 Delivery Room Air Room Air Room Air Room Air O2 Flow Rate 2.0 10/11/17 10/11/17 10/11/17 10/11/17 14:35 15:00 16:00 16:03 Temp 103.2 102.6 103.2 102.6 Pulse 130 155 B/P (MAP) 122/70 (87) 143/81 (101) Pulse Ox 99 99 97 O2 Delivery Nasal Cannula Nasal Cannula Nasal Cannula Room Air O2 Flow Rate 2.0 2.0 2.0 2.0 10/11/17 10/11/17 10/11/17 10/11/17 16:04 17:13 18:06 20:03 Temp 102.9 100.9 102.9 100.9 Pulse 162 137 143 Resp B/P (MAP) 110/62 (78) 95/57 (70) 108/82 (91) Pulse Ox 97 97 97 97 O2 Delivery Nasal Cannula Nasal Cannula Nasal Cannula Nasal Cannula O2 Flow Rate 2.0 2.0 2.0 2.0 10/11/17 10/11/17 10/11/17 10/11/17 20:04 20:10 20:30 21:00 Temp 103.1 105.0 103.1 105.0 Pulse 150 168 158 Resp B/P (MAP) 129/67 (87) 99/63 (75) Pulse Ox 96 97 98 O2 Delivery Room Air Nasal Cannula Nasal Cannula O2 Flow Rate 2.0 2.0 10/11/17 10/11/17 10/11/17 10/12/17 21:08 22:00 23:05 00:26 Temp 100.4 99.4 100.4 99.4 Pulse 158 134 Resp B/P (MAP) 102/59 (73) 104/68 (80) Pulse Ox 97 98 98 O2 Delivery Nasal Cannula Nasal Cannula Nasal Cannula Room Air O2 Flow Rate 2.0 2.0 2.0 2.0 10/12/17 10/12/17 10/12/17 10/12/17 00:28 01:03 03:30 04:00 Temp 98.4 98.4 97.7 98.4 98.4 97.7 Pulse 136 139 141 Resp 28 B/P (MAP) 118/79 (92) 131/74 (93) 137/69 (91) Pulse Ox 97 2 100 O2 Delivery Nasal Cannula Nasal Cannula Room Air O2 Flow Rate 2.0 2.0 2.0 10/12/17 10/12/17 10/12/17 10/12/17 04:00 05:16 06:37 07:03 Temp 98.0 100.3 98.0 100.3 Pulse 140 136 147 146 Resp 26 26 28 28 B/P (MAP) 135/60 (85) 117/72 (87) 127/71 (89) 114/61 (78) Pulse Ox 97 100 97 96 O2 Delivery Nasal Cannula Nasal Cannula Nasal Cannula O2 Flow Rate 2.0 2.0 2.0 10/12/17 10/12/17 10/12/17 10/12/17 08:00 08:00 08:28 09:00 Temp 100.8 99.0 100.8 99.0 Pulse 148 138 Resp 33 29 22 B/P (MAP) 120/81 (94) 93/69 (77) Pulse Ox 97 96 99 O2 Delivery Room Air Nasal Cannula Room Air Nasal Cannula O2 Flow Rate 2.0 2.0 2.0 2.0 10/12/17 10/12/17 10/12/17 10/12/17 09:28 09:37 10:00 10:02 Temp 99.7 99.7 Pulse 117 139 Resp 25 21 B/P (MAP) 120/64 (82) 120/64 Pulse Ox 99 99 99 O2 Delivery Room Air Nasal Cannula Nasal Cannula O2 Flow Rate 2.0 2.0 2.0 Intake and Output 10/11/17 10/11/17 10/12/17 15:00 23:00 07:00 Intake Total 120 ml 5700 ml 1000 ml Output Total 450 ml Balance 120 ml 5250 ml 1000 ml LEANDRA MADERA MD Oct 12, 2017 10:18
[2017-10-12 10:50] LABS: CALCIUM 6.7 mg/dL (8.5-10.1); CREATININE 1.2 mg/dL (0.7-1.3); MAGNESIUM 1.5 mg/dL (1.8-2.4); POTASSIUM 3.5 mmol/L (3.5-5.1)
--- NOTE | 2017-10-12 13:16 | PDOC ---
PULMONARY PROGRESS NOTES Subjective fevers/chills persist loose stools Vitals Vital Signs Date Time Temp Pulse Resp B/P (MAP) Pulse Ox O2 Delivery O2 Flow Rate FiO2 10/12/17 12:43 100 Nasal Cannula 2.0 10/12/17 12:00 99.5 125 24 101/57 (72) 99.5 ROS: No Nausea, No Chest Pain, No Abdominal Pain, No Increase Cough General: Alert, No acute distress Lungs: Clear Cardiovascular: S1, S2 Abdomen: Soft Neuro Exam: Alert Extremities: No Edema Skin: Warm, Other (exfoliation ) Labs Laboratory Tests Test 10/10/17 16:10 10/10/17 20:10 10/11/17 04:25 10/11/17 11:18 Lactic Acid Level 3.0 mmol/L (0.4-2.0) 3.3 mmol/L (0.4-2.0) White Blood Count 6.7 x10^3/uL (4.0-11.0) Red Blood Count 3.91 x10^6/uL (4.30-5.70) Hemoglobin 12.2 g/dL (13.0-17.5) Hematocrit 36.3 % (39.0-53.0) Mean Corpuscular Volume 93 fL (79-100) Mean Corpuscular Hemoglobin 31 pg (25-35) Mean Corpuscular Hemoglobin Concent 34 g/dL (31-37) Red Cell Distribution Width 14.1 % (11.5-14.5) Platelet Count 40 x10^3/uL (140-400) Neutrophils (%) (Auto) 94 % (31-73) Lymphocytes (%) (Auto) 2 % (24-48) Monocytes (%) (Auto) 3 % (0-9) Eosinophils (%) (Auto) 1 % (0-3) Basophils (%) (Auto) 0 % (0-3) Neutrophils # (Auto) 6.3 x10^3uL (1.8-7.7) Lymphocytes # (Auto) 0.1 x10^3/uL (1.0-4.8) Monocytes # (Auto) 0.2 x10^3/uL (0.0-1.1) Eosinophils # (Auto) 0.0 x10^3/uL (0.0-0.7) Basophils # (Auto) 0.0 x10^3/uL (0.0-0.2) Sodium Level 133 mmol/L (136-145) Potassium Level 3.2 mmol/L (3.5-5.1) Chloride Level 101 mmol/L (98-107) Carbon Dioxide Level 21 mmol/L (21-32) Anion Gap 11 (6-14) Blood Urea Nitrogen 13 mg/dL (8-26) Creatinine 1.4 mg/dL (0.7-1.3) Estimated GFR (Cockcroft-Gault) 72.0 Glucose Level 111 mg/dL (70-99) Calcium Level 7.5 mg/dL (8.5-10.1) Total Bilirubin 0.4 mg/dL (0.2-1.0) Direct Bilirubin 0.2 mg/dL (0.0-0.2) Aspartate Amino Transf (AST/SGOT) 45 U/L (15-37) Alanine Aminotransferase (ALT/SGPT) 20 U/L (16-63) Alkaline Phosphatase 56 U/L (46-116) Total Protein 4.7 g/dL (6.4-8.2) Albumin 2.0 g/dL (3.4-5.0) Procalcitonin 0.66 ng/mL (0.00-0.10) O2 Saturation 92 % (92-99) Arterial Blood pH 7.52 (7.35-7.45) Arterial Blood pH (Temp corrected) 7.49 Arterial Blood pCO2 at Patient Temp 25 mmHg (35-46) Arterial Blood pCO2 (Temp correct) 28 mmHg Arterial Blood pO2 at Patient Temp 62 mmHg (85-108) Arterial Blood pO2 (Temp corrected) 72 mmHg Arterial Blood HCO3 20 mmol/L (21-28) Arterial Blood Base Excess -1 mmol/L (-3-3) FiO2 21.0 Test 10/11/17 12:15 10/11/17 14:25 10/11/17 17:15 10/11/17 18:00 Lactic Acid Level 2.7 mmol/L (0.4-2.0) 2.8 mmol/L (0.4-2.0) Prothrombin Time 18.1 SEC (11.7-14.0) Prothromb Time International Ratio 1.6 (0.8-1.1) Activated Partial Thromboplast Time 44 SEC (24-38) Fibrinogen 421 mg/dL (200-440) D-Dimer (Wilma) 6.57 ug/mlFEU (0.00-0.50) Urine Collection Type Unknown Urine Color Dilma Urine Clarity Clear Urine pH 6.0 Urine Specific [place] 1.025 Urine Protein 100 mg/dL (NEG-TRACE) Urine Glucose (UA) Negative mg/dL (NEG) Urine Ketones (Stick) Negative mg/dL (NEG) Urine Blood Negative (NEG) Urine Nitrite Negative (NEG) Urine Bilirubin Negative (NEG) Urine Urobilinogen Dipstick 0.2 mg/dL (0.2 mg/dL) Urine Leukocyte Esterase Negative (NEG) Urine RBC 0 /HPF (0-2) Urine WBC Occ /HPF (0-4) Urine Squamous Epithelial Cells Occ /LPF Urine Amorphous Sediment Present /HPF Urine Bacteria 0 /HPF (0-FEW) Urine Mucus Slight /LPF Test 10/12/17 10:05 Sodium Level 137 mmol/L (136-145) Potassium Level 3.5 mmol/L (3.5-5.1) Chloride Level 104 mmol/L (98-107) Carbon Dioxide Level 19 mmol/L (21-32) Anion Gap 14 (6-14) Blood Urea Nitrogen 15 mg/dL (8-26) Creatinine 1.2 mg/dL (0.7-1.3) Estimated GFR (Cockcroft-Gault) 86.0 Glucose Level 107 mg/dL (70-99) Calcium Level 6.7 mg/dL (8.5-10.1) Magnesium Level 1.5 mg/dL (1.8-2.4) Laboratory Tests Test 10/11/17 14:25 10/11/17 17:15 10/11/17 18:00 10/12/17 10:05 Prothrombin Time 18.1 SEC (11.7-14.0) Prothromb Time International Ratio 1.6 (0.8-1.1) Activated Partial Thromboplast Time 44 SEC (24-38) Fibrinogen 421 mg/dL (200-440) D-Dimer (Wilma) 6.57 ug/mlFEU (0.00-0.50) Lactic Acid Level 2.8 mmol/L (0.4-2.0) Urine Collection Type Unknown Urine Color Dilma Urine Clarity Clear Urine pH 6.0 Urine Specific [place] 1.025 Urine Protein 100 mg/dL (NEG-TRACE) Urine Glucose (UA) Negative mg/dL (NEG) Urine Ketones (Stick) Negative mg/dL (NEG) Urine Blood Negative (NEG) Urine Nitrite Negative (NEG) Urine Bilirubin Negative (NEG) Urine Urobilinogen Dipstick 0.2 mg/dL (0.2 mg/dL) Urine Leukocyte Esterase Negative (NEG) Urine RBC 0 /HPF (0-2) Urine WBC Occ /HPF (0-4) Urine Squamous Epithelial Cells Occ /LPF Urine Amorphous Sediment Present /HPF Urine Bacteria 0 /HPF (0-FEW) Urine Mucus Slight /LPF Sodium Level 137 mmol/L (136-145) Potassium Level 3.5 mmol/L (3.5-5.1) Chloride Level 104 mmol/L (98-107) Carbon Dioxide Level 19 mmol/L (21-32) Anion Gap 14 (6-14) Blood Urea Nitrogen 15 mg/dL (8-26) Creatinine 1.2 mg/dL (0.7-1.3) Estimated GFR (Cockcroft-Gault) 86.0 Glucose Level 107 mg/dL (70-99) Calcium Level 6.7 mg/dL (8.5-10.1) Magnesium Level 1.5 mg/dL (1.8-2.4) Medications Active Scripts Medications Dose Route/Sig Max Daily Dose Days Date Category [place] 5-325 Tablet (Acetaminophen/Hydrocodone Bitart) 1 Each Tablet 1 Tab PO Q4-6HRS 08/11/17 Rx Bactrim Ds Tablet (Sulfamethoxazole/Trimethoprim) 1 Each Tablet 1 Tab PO BID 08/11/17 Rx [place] 5-325 Tablet (Acetaminophen/Hydrocodone Bitart) 1 Each Tablet 1 Tab PO PRN Q6HRS PRN 04/24/16 Rx Bactrim Ds Tablet (Sulfamethoxazole/Trimethoprim) 1 Each Tablet 1 Tab PO BID 04/24/[address] CHEST/ABD/PELVIS 1. Minimal ground-glass opacity in the right middle lobe. 2. Emphysema with parenchymal scarring. 3. Minimal distal ileal mural thickening compatible with nonspecific enteritis. 4. Trace amount of free fluid in the deep pelvis. Impression . 1. Fever/chills in a patient who is human immunodeficiency virus with last CD4 count of 55. His chest x-ray is consistent with mild focal infiltrate in the right lower lobe. CT chest with only mild infiltrate in RML. Doubt source of fever. Enteritis is probably source of fever. 2. History of human immunodeficiency virus/acquired immune deficiency syndrome with CD4 count of 55 on HAART treatment. 3. History of tobaccoism. 4. History of asthma. Plan . 1. Continue with broad spectrum antibiotic per Infectious Disease recommendation. stool studies 2. Continue nebulizer. 3. P.r.n. oxygen. 4. Atovaquone Per ID for PCP prophylaxis. 5. CT chest reviewed. mild RML pneumonitis, doubt source of fever. 6. Follow all cultures/ stool cultures JUSTIN KAPLAN MD Oct 12, 2017 13:16
--- NOTE | 2017-10-12 13:40 | EKG ---
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
--- NOTE | 2017-10-12 16:30 | PDOC2 ---
PALLIATIVE CARE Palliative Care Note PALLIATIVE CARE Consult requested by Dr. Ricardo to address goals of care Patient alert. RR 32. sat >90% Code Status: Full Code. Plan family meeting Sunday at 1300. OCTAVIA VICTOR Oct 12, 2017 16:30
--- NOTE | 2017-10-12 16:53 | CARD ---
APPROVED REPORT EXAM: Two-dimensional and M-mode echocardiogram with Doppler and color Doppler. Other Information Quality : Good INDICATION Tachycardia, Sepsis 2D DIMENSIONS RVDd2.1 (2.9-3.5cm)Left Atrium(2D)3.7 (1.6-4.0cm) IVSd1.1 (0.7-1.1cm)Aortic Root(2D)2.9 (2.0-3.7cm) LVDd4.8 (3.9-5.9cm)LVOT Diameter2.0 (1.8-2.4cm) PWd1.3 (0.7-1.1cm)LVDs3.9 (2.5-4.0cm) FS (%) 27.0 %SV40.0 ml LVEF(%)55.0 (>50%) Aortic Valve AoV Peak Jacob.167.5cm/Yolette Peak GR.11.2mmHg LVOT Peak Jacob.116.6cm/sAVA (VMAX)2.14cm2 Mitral Valve MV E Znfdzgqj20.1cm/sMV DECEL [id number] MV A Hmmayxpg10.4cm/sE/A Ratio1.3 Tricuspid Valve TR P. Wqewftvs889bi/sRAP [id number] TR Peak Gr.[id number] Pulmonary Vein S1 Dvgewbay70.4cm/sD2 Oaqvhjhz56.4cm/s LEFT VENTRICLE The left ventricle is normal size. There is mild concentric left ventricular hypertrophy. The left ve ntricular systolic function is normal and the ejection fraction is within normal range. The Ejection Fraction is 55-60%. There is normal LV segmental wall motion. The left ventricular diastolic function and filling is normal for age. RIGHT VENTRICLE The right ventricle is normal size. The right ventricular systolic function is normal. ATRIA The left atrium size is normal. The right atrium size is normal. The interatrial septum is intact wit h no evidence for an atrial septal defect or patent foramen ovale as noted on 2-D or Doppler imaging. AORTIC VALVE The aortic valve is normal in structure and function. Doppler and Color Flow revealed no significant aortic regurgitation. There is no significant aortic valvular stenosis. MITRAL VALVE The mitral valve is normal in structure and function. There is no evidence of mitral valve prolapse. There is no mitral valve stenosis. Doppler and Color-flow revealed trace mitral regurgitation. TRICUSPID VALVE The tricuspid valve is normal in structure and function. Doppler and Color Flow revealed physiologica l tricuspid regurgitation. The PA pressure was estimated at 24 mmHg. There is no tricuspid valve sten osis. PULMONIC VALVE The pulmonary valve is normal in structure and function. Doppler and Color Flow revealed no pulmonic valvular regurgitation. There is no pulmonic valvular stenosis. GREAT VESSELS The aortic root is normal in size. The ascending aorta is normal in size. The IVC is normal in size a nd collapses >50% with inspiration. PERICARDIAL EFFUSION There is a trace circumferential pericardial effusion with no hemodynamic significance. Critical Notification Critical Value: No <Conclusion> The left ventricle is normal size. The left ventricular systolic function is normal and the ejection fraction is within normal range. The Ejection Fraction is 55-60%. There is mild concentric left ventricular hypertrophy. There is no significant aortic valvular stenosis. Doppler and Color Flow revealed no significant aortic regurgitation. Doppler and Color-flow revealed trace mitral regurgitation. Doppler and Color Flow revealed physiological tricuspid regurgitation. The PA pressure was estimated at 24 mmHg. There is a trace circumferential pericardial effusion with no hemodynamic significance.
[2017-10-12] MEDS: ALPRAZolam 0.25 MG TABLET PO PRN ×2 (18:02→23:54)
[2017-10-12] MEDS: AMINO AC 3%/ELECTROLYTE/GLYCER 1,000 ML IV SCH (18:02)
[2017-10-12] MEDS: guaiFENesin DM 200MG/20MG 10 ML SYRUP PO PRN (21:07)
[2017-10-13] VITALS (23 sets, daily range): BP systolic 99–153; BP diastolic 61–99
[2017-10-13] MEDS: IV NORMAL SALINE 1000ML BAG 1,000 ML IV SCH ×3 (01:00→13:42)
[2017-10-13] MEDS: METOPROLOL TARTRATE 5 MG/5 ML VIAL. IVP SCH ×4 (06:00→23:31)
[2017-10-13] MEDS: MEROPENEM IV Push 500 MG VIAL. IVP SCH ×3 (06:23→20:32)
[2017-10-13] MEDS: AMINO AC 3%/ELECTROLYTE/GLYCER 1,000 ML IV SCH ×2 (06:24→20:31)
[2017-10-13] MEDS: IPRATRPIUM/ALBUTEROL 0.5/2.5MG 3 ML NEBU. NEB SCH ×4 (08:00→19:59)
[2017-10-13] MEDS ORDERED: MAGNESIUM SULFATE 4GM 100 ML IV ONE (09:00)
[2017-10-13] MEDS: chlorproMAZINE 25 MG TABLET PO SCH ×3 (09:00→20:32)
[2017-10-13] MEDS: ONDANSETRON PF 4 MG/2 ML VIAL. IV PRN (09:26)
[2017-10-13] MEDS: ATOVAQUONE 750 MG/5 ML ORAL.SUSP. PO SCH (09:27)
[2017-10-13] MEDS: POTASSIUM CHLORIDE 20 MEQ TABLET.ER. PO SCH (09:27)
[2017-10-13] MEDS: ALPRAZolam 0.25 MG TABLET PO PRN ×3 (09:27→23:31)
[2017-10-13] MEDS: methylPREDNISolone SOD SUCC PF 40 MG/ML VIAL. IV SCH ×2 (09:27→20:32)
[2017-10-13] MEDS: AZITHROMYCIN 500 MG in IV NORMAL SALINE 250ML 250 ML IV SCH (09:28)
[2017-10-13] MEDS: [UNRECOGNIZED DRUG - OTHER] PO SCH (09:28)
--- NOTE | 2017-10-13 10:19 | PDOC ---
PROGRESS NOTES Chief Complaint Chief Complaint Assessment/Plan #1 AIDS on HAART #2 fever in an immunocompromised #3 mild to moderate PCM #4 asthma chronic stable #5. HCAP 7 smoker #8 sinus tachycardia History of Present Illness History of Present Illness Better Magnesium is low 1.5 Less tachycardic, blood pressure better, not any more hypotensive Far did not need any pressors No fevers Never had a white count Last CD4 count known is 50 Viral load 260 Friend at bedside Plan: Continue antibiotics per ID Replace mag 4 grams IV 1 C. difficile is negative, Imodium when necessary We'll DC rectal tube once diarrhea subsides Needed to start ProcalAmine yesterday as input was less than output, she was running normalcy at 175 mL an hour Would keep ICU today, if continues to improve then transfer out tomorrow Vitals Vitals Vital Signs Date Time Temp Pulse Resp B/P (MAP) Pulse Ox O2 Delivery O2 Flow Rate FiO2 10/13/17 06:24 101 25 135/86 (102) 96 Nasal Cannula 2.0 10/13/17 05:00 98.3 98.3 Physical Exam Physical Exam NECK: Supple, no JVD, no LN LUNGS: Clear RR =30 HEART: S1S2, no gallop, no murmur ABD: Soft, NT, no organomegaly, no rebound EXT: No edema, no cyanosis PROCEDURES TECH: Alert, oriented x 3, no focal neurologic deficit SKIN: rash, with exfoliation, no mucus membrane involvement General: Alert, Oriented X3, Cooperative, No acute distress, Other (cold, multiple blankets on) Heart: Other (TACHY RATE 130) Lungs: Clear Abdomen: Normal bowel sounds, Soft, No tenderness, No hepatosplenomegaly, No masses Extremities: No clubbing, No cyanosis, No edema, Normal pulses, No tenderness/ swelling Skin: Other (flaky dry skin all over the face chest upper extremity) Labs LABS Laboratory Tests Test 10/13/17 04:45 Lactic Acid Level 1.4 mmol/L (0.4-2.0) Review of Systems Review of Systems Diarrhea, no abdominal pain, no chills, no cough, no increasing shortness of breath, no chest pain Assessment and Plan Assessmemt and Plan Problems Medical Problems: (1) Elevated brain natriuretic peptide (BNP) level Status: Acute (2) HCAP (healthcare-associated pneumonia) Status: Acute (3) HIV (human immunodeficiency virus infection) Status: Acute (4) Immunosuppression Status: Acute (5) Lactic acid acidosis Status: Acute (6) Sepsis Status: Acute Problems: Comment Review of Relevant I have reviewed the following items nain (where applicable) has been applied. Labs Laboratory Tests Test 10/11/17 11:18 10/11/17 12:15 10/11/17 14:25 10/11/17 17:15 O2 Saturation 92 % (92-99) Arterial Blood pH 7.52 (7.35-7.45) Arterial Blood pH (Temp corrected) 7.49 Arterial Blood pCO2 at Patient Temp 25 mmHg (35-46) Arterial Blood pCO2 (Temp correct) 28 mmHg Arterial Blood pO2 at Patient Temp 62 mmHg (85-108) Arterial Blood pO2 (Temp corrected) 72 mmHg Arterial Blood HCO3 20 mmol/L (21-28) Arterial Blood Base Excess -1 mmol/L (-3-3) FiO2 21.0 Lactic Acid Level 2.7 mmol/L (0.4-2.0) 2.8 mmol/L (0.4-2.0) Prothrombin Time 18.1 SEC (11.7-14.0) Prothromb Time International Ratio 1.6 (0.8-1.1) Activated Partial Thromboplast Time 44 SEC (24-38) Fibrinogen 421 mg/dL (200-440) D-Dimer (Wilma) 6.57 ug/mlFEU (0.00-0.50) Test 10/11/17 18:00 10/12/17 09:15 10/12/17 10:05 10/13/17 04:45 Urine Collection Type Unknown Urine Color Dilma Urine Clarity Clear Urine pH 6.0 Urine Specific [place] 1.025 Urine Protein 100 mg/dL (NEG-TRACE) Urine Glucose (UA) Negative mg/dL (NEG) Urine Ketones (Stick) Negative mg/dL (NEG) Urine Blood Negative (NEG) Urine Nitrite Negative (NEG) Urine Bilirubin Negative (NEG) Urine Urobilinogen Dipstick 0.2 mg/dL (0.2 mg/dL) Urine Leukocyte Esterase Negative (NEG) Urine RBC 0 /HPF (0-2) Urine WBC Occ /HPF (0-4) Urine Squamous Epithelial Cells Occ /LPF Urine Amorphous Sediment Present /HPF Urine Bacteria 0 /HPF (0-FEW) Urine Mucus Slight /LPF Clostridium difficile Toxin (PCR) Negative (Negative) Sodium Level 137 mmol/L (136-145) Potassium Level 3.5 mmol/L (3.5-5.1) Chloride Level 104 mmol/L (98-107) Carbon Dioxide Level 19 mmol/L (21-32) Anion Gap 14 (6-14) Blood Urea Nitrogen 15 mg/dL (8-26) Creatinine 1.2 mg/dL (0.7-1.3) Estimated GFR (Cockcroft-Gault) 86.0 Glucose Level 107 mg/dL (70-99) Calcium Level 6.7 mg/dL (8.5-10.1) Magnesium Level 1.5 mg/dL (1.8-2.4) Lactic Acid Level 1.4 mmol/L (0.4-2.0) Laboratory Tests Test 10/13/17 04:45 Lactic Acid Level 1.4 mmol/L (0.4-2.0) Microbiology 10/11/17 Blood Culture - Preliminary, Resulted NO GROWTH AFTER 1 DAY 10/11/17 Urine Culture - Preliminary, Resulted 10/11/17 Urine Culture Result 1 (DAVIAN) - Preliminary, Resulted Medications Current Medications Sodium Chloride 1,000 ml @ 1,000 mls/hr 1X ONCE IV Last administered on 10/10 01:22; Start 10/10/17 at 00:45; Stop 10/10/17 at 01:44; Status DC Acetaminophen (Tylenol) 1,000 mg 1X ONCE PO Last administered on 10/10/17 01 :07; Start 10/10/17 at 00:45; Stop 10/10/17 at 00:46; Status DC Vancomycin HCl (Vanco Per Pharmacy) 1 each PRN DAILY PRN MC SEE COMMENTS Last administered on 10/10/17 02:47; Start 10/10/17 at 00:30; Stop 10/10/17 at 10 :16; Status DC Piperacillin Sod/ Tazobactam Sod 3.375 gm/Dextrose 50 ml @ 100 mls/hr 1X ONCE IV ; Start 10/10/17 at 00:30; Stop 10/10/17 at 00:59; Status UNV Piperacillin Sod/ Tazobactam Sod (Zosyn) 3.375 gm 1X ONCE IVP Last administered on 10/10/17 00:51; Start 10/10/17 at 00:30; Stop 10/10/17 at 00 :31; Status DC Vancomycin HCl 1.75 gm/Dextrose/ Sodium Chloride 500 ml @ 250 mls/hr 1X ONCE IV Last administered on 10/10/17 00:51; Start 10/10/17 at 01:00; Stop 10/10 at 02:59; Status DC Azithromycin 500 mg/Sodium Chloride 250 ml @ 250 mls/hr 1X ONCE IV ; Start at 01:15; Stop 10/10/17 at 02:14; Status UNV Atovaquone (Mepron) 750 mg 1X ONCE PO Last administered on 10/10/17 01:57; Start 10/10/17 at 01:30; Stop 10/10/17 at 01:31; Status DC Ondansetron HCl (Zofran) 4 mg PRN Q8HRS PRN IV NAUSEA/VOMITING; Start at 01:15; Stop 10/11/17 at 01:14; Status DC Azithromycin 250 ml @ 250 mls/hr 1X ONCE IV Last administered on 10/10/17 02:02; Start 10/10/17 at 01:30; Stop 10/10/17 at 02:29; Status DC Prednisone (Prednisone) 40 mg 1X ONCE PO Last administered on 10/10/17 01:57 ; Start 10/10/17 at 02:00; Stop 10/10/17 at 02:01; Status DC Sodium Chloride 1,000 ml @ 1,000 mls/hr Q1H IV Last administered on 03:30; Start 10/10/17 at 02:30; Stop 10/10/17 at 04:25; Status DC Sodium Chloride 500 ml @ 1,000 mls/hr PRN Q30MIN PRN IV SEE COMMENTS; Start 10/10/17 at 02:15 Norepinephrine Bitartrate 250 ml @ 0 mls/hr CONT PRN IV SEE I/O RECORD; Start 10/10/17 at 02:15; Stop 10/10/17 at 08:33; Status DC Dobutamine HCl/ Dextrose 250 ml @ 0 mls/hr CONT PRN IV SEE I/O RECORD; Start 10/10/17 at 02:15; Stop 10/10/17 at 08:33; Status DC Vancomycin HCl 1.25 gm/Sodium Chloride 250 ml @ 167 mls/hr Q12H IV ; Start at 13:00; Stop 10/10/17 at 13:00; Status DC Vancomycin HCl 1 each 1X ONCE MC ; Start 10/11/17 at 12:30; Stop 10/11/17 at 12:31; Status Cancel Ibuprofen (Motrin) 600 mg PRN Q6HRS PRN PO INFLAMMATION Last administered on 21:07; Start 10/10/17 at 03:30 Chlorpromazine HCl (Thorazine) 25 mg PRN Q6HRS PRN PO HICCUPS Last administered on 10/10/17 03:41; Start 10/10/17 at 03:30; Stop 10/10/17 at 08 :33; Status DC Acetaminophen/ Hydrocodone Bitart ([place] 5/325) 1 tab PRN Q6HRS PRN PO PAIN Last administered on 10/12/17 21:07; Start 10/10/17 at 08:15 Acetaminophen/ Hydrocodone Bitart (Lortab 5/325) 1 tab QID PRN PO pain; Start 10/10/17 at 08:15; Status UNV Atovaquone (Mepron) 750 mg BID PO Last administered on 10/11/17 09:00; Start 10/10/17 at 09:00; Stop 10/11/17 at 11:21; Status DC Azithromycin 500 mg/Sodium Chloride 250 ml @ 250 mls/hr Q24H IV Last administered on 10/13/17 09:28; Start 10/10/17 at 09:00 Levofloxacin/ Dextrose 150 ml @ 100 mls/hr Q24H IV Last administered on 09:29; Start 10/10/17 at 09:00 Chlorpromazine HCl (Thorazine) 25 mg TID PO Last administered on 10/12/17 21: 08; Start 10/10/17 at 09:00 Albuterol/ Ipratropium (Duoneb) 3 ml RTQID NEB Last administered on 10/12/17 20:22; Start 10/10/17 at 09:00 Albuterol Sulfate (Ventolin Neb Soln) 2.5 mg PRN Q4HRS PRN NEB SHORTNESS OF BREATH; Start 10/10/17 at 08:45 Guaifenesin (Robitussin Dm) 10 ml PRN Q6HRS PRN PO COUGH Last administered on 10/12/17 21:07; Start 10/10/17 at 08:45 Sodium Chloride 1,000 ml @ 100 mls/hr Q10H IV Last administered on 10/11/17 04:45; Start 10/10/17 at 08:45; Stop 10/11/17 at 15:58; Status DC Iohexol (Omnipaque 240 Mg/ml) 30 ml 1X ONCE PO Last administered on 11:20; Start 10/10/17 at 09:00; Stop 10/10/17 at 09:01; Status DC Iohexol (Omnipaque 300 Mg/ml) 75 ml 1X ONCE IV Last administered on 12:45; Start 10/10/17 at 09:00; Stop 10/10/17 at 09:01; Status DC Info (Do NOT chart on this entry -- for MONITORING) 1 each PRN DAILY PRN MC SEE COMMENTS; Start 10/10/17 at 09:00; Stop 10/12/17 at 08:59; Status DC Nicotine (Nicoderm Cq 21mg) 1 patch PRN DAILY PRN TD SMOKING CESSATION; Start 10/10/17 at 09:30 Acetaminophen (Tylenol) 650 mg PRN Q6HRS PRN PO FEVER Last administered on 17:26; Start 10/10/17 at 16:15 Sodium Chloride 1,920 ml @ 1,920 mls/hr Q1H IV Last administered on 15:29; Start 10/11/17 at 13:29; Stop 10/11/17 at 15:56; Status DC Sodium Chloride 500 ml @ 1,000 mls/hr PRN Q30MIN PRN IV SEE COMMENTS; Start 10/11/17 at 13:30 Sodium Chloride 1,000 ml @ 175 mls/min Q6M IV Last administered on 10/11/17 13:51; Start 10/11/17 at 13:33; Stop 10/11/17 at 16:02; Status DC Norepinephrine Bitartrate 250 ml @ 0 mls/hr CONT PRN IV SEE I/O RECORD; Start 10/11/17 at 13:30 Dobutamine HCl/ Dextrose 250 ml @ 0 mls/hr CONT PRN IV SEE I/O RECORD; Start 10/11/17 at 13:30 Meropenem 500 mg/ Sodium Chloride 50 ml @ 100 mls/hr Q8HRS IV ; Start at 14:00; Stop 10/11/17 at 14:00; Status DC Meropenem (Merrem) 500 mg Q8HRS IVP Last administered on 10/13/17 06:23; Start 10/11/17 at 14:00 Potassium Chloride (Klor-Con) 40 meq 1X ONCE PO Last administered on 14:56; Start 10/11/17 at 14:30; Stop 10/11/17 at 14:34; Status DC Sodium Chloride 1,000 ml @ 175 mls/hr Q5H43M IV Last administered on 06:31; Start 10/11/17 at 16:15 Methylprednisolone Sodium Succinate (SOLU-Medrol 40MG VIAL) 40 mg Q12HR IV Last administered on 10/13/17 09:27; Start 10/12/17 at 09:00 Atovaquone (Mepron) 750 mg DAILYWBKFT PO Last administered on 10/13/17 09:27 ; Start 10/12/17 at 08:00 Ondansetron HCl (Zofran) 4 mg PRN Q6HRS PRN IV NAUSEA/VOMITING Last administered on 10/13/17 09:26; Start 10/12/17 at 09:00 Potassium Chloride (Klor-Con) 40 meq 1X ONCE PO Last administered on 10:01; Start 10/12/17 at 09:30; Stop 10/12/17 at 09:31; Status DC Potassium Chloride (Klor-Con) 40 meq DAILYWBKFT PO Last administered on 09:27; Start 10/13/17 at 08:00 Metoprolol Tartrate (Lopressor Vial) 5 mg Q6HRS IVP Last administered on 06:00; Start 10/12/17 at 09:30 Alprazolam (Xanax) 0.25 mg PRN Q6HRS PRN PO ANXIETY / AGITATION Last administered on 10/13/17 09:27; Start 10/12/17 at 18:00 Amino Acids/ Glycerin/ Electrolytes 1,000 ml @ 80 mls/hr [id number] IV Last administered on 10/13/17 06:24; Start 10/12/17 at 18:00 Magnesium Sulfate/ Dextrose 100 ml @ 25 mls/hr 1X ONCE IV Last administered on 10/13/17 09:30; Start 10/13/17 at 09:00; Stop 10/13/17 at 12:59 Active Scripts Active [place] 5-325 Tablet (Acetaminophen/Hydrocodone Bitart) 1 Each Tablet 1 Tab PO Q4- 6HRS Bactrim Ds Tablet (Sulfamethoxazole/Trimethoprim) 1 Each Tablet 1 Tab PO BID [place] 5-325 Tablet (Acetaminophen/Hydrocodone Bitart) 1 Each Tablet 1 Tab PO PRN Q6HRS PRN Bactrim Ds Tablet (Sulfamethoxazole/Trimethoprim) 1 Each Tablet 1 Tab PO BID Vitals/I & O Vital Sign - Last 24 Hours 10/12/17 10/12/17 10/12/17 10/12/17 11:00 11:58 12:00 12:43 Temp 98.6 99.5 98.6 99.5 Pulse 123 125 Resp 25 24 B/P (MAP) 136/79 (98) 101/57 (72) Pulse Ox 99 99 100 O2 Delivery Nasal Cannula Room Air Nasal Cannula Nasal Cannula O2 Flow Rate 2.0 2.0 2.0 2.0 10/12/17 10/12/17 10/12/17 10/12/17 13:00 13:42 14:00 15:00 Pulse 133 133 117 118 Resp 32 30 24 B/P (MAP) 135/83 (100) 135/83 116/93 (101) 127/83 (98) Pulse Ox 99 96 97 O2 Delivery Nasal Cannula Nasal Cannula Nasal Cannula O2 Flow Rate 2.0 2.0 2.0 10/12/17 10/12/17 10/12/17 10/12/17 16:00 16:00 16:51 17:00 Temp 100.2 99.0 100.2 99.0 Pulse 120 111 Resp 26 25 B/P (MAP) 134/80 (98) 126/87 (100) Pulse Ox 96 100 97 O2 Delivery Room Air Nasal Cannula Nasal Cannula Nasal Cannula O2 Flow Rate 2.0 2.0 2.0 2.0 10/12/17 10/12/17 10/12/17 10/12/17 17:24 18:00 19:00 20:00 Temp 98.9 98.9 Pulse 123 111 108 Resp 28 B/P (MAP) 126/87 101/67 (78) 109/56 (73) Pulse Ox 98 95 O2 Delivery Nasal Cannula Nasal Cannula Room Air O2 Flow Rate 2.0 2.0 2.0 10/12/17 10/12/17 10/12/17 10/12/17 20:00 20:22 21:00 21:07 Temp 99.1 99.1 Pulse 118 110 Resp 18 B/P (MAP) 150/85 (106) 116/73 (87) Pulse Ox 95 98 93 O2 Delivery Nasal Cannula Nasal Cannula O2 Flow Rate 2.0 2.0 10/12/17 10/12/17 10/12/17 10/12/17 22:00 22:15 23:00 23:55 Pulse 100 100 114 Resp B/P (MAP) 111/62 (78) 118/72 (87) 118/72 Pulse Ox 97 93 O2 Delivery Nasal Cannula Room Air Nasal Cannula O2 Flow Rate 2.0 2.0 2.0 10/13/17 10/13/17 10/13/17 10/13/17 00:10 00:18 01:00 02:00 Temp 98.3 98.3 Pulse 102 100 100 Resp 24 B/P (MAP) 99/78 (85) 117/72 (87) 117/67 (84) Pulse Ox 96 95 95 O2 Delivery Nasal Cannula Room Air Nasal Cannula Nasal Cannula O2 Flow Rate 2.0 2.0 2.0 2.0 10/13/17 10/13/17 10/13/17 10/13/17 04:00 04:06 05:00 06:00 Temp 98.3 98.3 Pulse 104 110 106 Resp B/P (MAP) 103/61 (75) 119/69 (86) 135/86 Pulse Ox 97 97 O2 Delivery Nasal Cannula Room Air Nasal Cannula O2 Flow Rate 2.0 2.0 2.0 10/13/17 06:24 Pulse 101 Resp 25 B/P (MAP) 135/86 (102) Pulse Ox 96 O2 Delivery Nasal Cannula O2 Flow Rate 2.0 Intake and Output 10/12/17 10/12/17 10/13/17 14:59 22:59 06:59 Intake Total 2650 ml 3500 ml Output Total 1250 ml 2670 ml 2100 ml Balance -1250 ml -20 ml 1400 ml LEANDRA MADERA MD Oct 13, 2017 10:19
--- NOTE | 2017-10-13 11:06 | PDOC ---
Infectious Disease Note Subjective Subjective Skin dry, peeling, primarily face and hands + wheezing, denies SOA/CP Less fever, Tmax 100.2 + cramps & diarrhea, rectal tube in place + nausea, denies vomiting ROS ROS GEN: Denies chills, sweats HEENT: Denies sore throat Vital Sign Vital Signs Vital Signs Date Time Temp Pulse Resp B/P (MAP) Pulse Ox O2 Delivery O2 Flow Rate FiO2 10/13/17 10:00 105 25 128/85 (99) 98 Nasal Cannula 2.0 10/13/17 08:00 98.6 98.6 Physical Exam PHYSICAL EXAM GENERAL: Lying down, relaxed appearance, NAD HEENT: PERRL, OC/OP + thrush NECK: Supple LUNGS: Clear, no wheezing, rales or rhonchi, nonlabored HEART: S1S2, no gallop, no murmur. Regular ABD: Soft, NT, BS active, rectal tube in place : [place] EXT: No edema, no cyanosis SR. MANAGER: Alert, oriented x 3, no focal neurologic deficit SKIN: exfoliating rash, mostly face and hands IV: ok Labs Lab Laboratory Tests Test 10/13/17 04:45 Lactic Acid Level 1.4 mmol/L (0.4-2.0) CT chest/abd/pelvis IMPRESSION: 1. Minimal groundglass opacity in the right middle lobe. 2. Emphysema with parenchymal scarring. 3. Minimal distal ileal mural thickening compatible with nonspecific enteritis. 4. Trace amount of free fluid in the deep pelvis. Micro Blood and urine cultures NGTD Objective Assessment HIV/AIDS F/U [facility] admitted with Fever Exfoliative dermatitis,,, drug , ? had rash before Mepron started here but [facility],, ? vanco with exfoliation Recent pneumonia h/o Non compliance Diarrhea, c. 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
[2017-10-13 12:07] LABS: BASO % 0 % (0-3); EOS % 0 % (0-3); HEMATOCRIT 31.2 % (39.0-53.0); HEMOGLOBIN 10.5 g/dL (13.0-17.5); LYMPH # 0.3 x10^3/uL (1.0-4.8); LYMPH % 5 % (24-48); MEAN CORPUSCULAR HEMOGLOBIN 31 pg (25-35); MEAN CORPUSCULAR HGB CONC 34 g/dL (31-37); MEAN CORPUSCULAR VOLUME 91 fL (79-100); MONO % 1 % (0-9); NEUT % 94 % (31-73); PLATELET COUNT 37 x10^3/uL (140-400); RED BLOOD COUNT 3.42 x10^6/uL (4.30-5.70); RED CELL DISTRIBUTION WIDTH 14.3 % (11.5-14.5); WHITE BLOOD COUNT 6.4 x10^3/uL (4.0-11.0)
--- NOTE | 2017-10-13 12:22 | PDOC ---
PULMONARY PROGRESS NOTES Subjective fevers/chills IMPROVED loose stools PERSISTENT Vitals Vital Signs Date Time Temp Pulse Resp B/P (MAP) Pulse Ox O2 Delivery O2 Flow Rate FiO2 10/13/17 11:27 98 Nasal Cannula 2.0 10/13/17 11:00 116 28 124/79 (94) 10/13/17 08:00 98.6 98.6 ROS: No Nausea, No Chest Pain, No Abdominal Pain, No Increase Cough General: Alert, No acute distress Lungs: Clear Cardiovascular: S1, S2 Abdomen: Soft Neuro Exam: Alert Extremities: No Edema Skin: Warm, Other (exfoliation ) Labs Laboratory Tests Test 10/11/17 14:25 10/11/17 17:15 10/11/17 18:00 10/12/17 09:15 Prothrombin Time 18.1 SEC (11.7-14.0) Prothromb Time International Ratio 1.6 (0.8-1.1) Activated Partial Thromboplast Time 44 SEC (24-38) Fibrinogen 421 mg/dL (200-440) D-Dimer (Wilma) 6.57 ug/mlFEU (0.00-0.50) Lactic Acid Level 2.8 mmol/L (0.4-2.0) Urine Collection Type Unknown Urine Color Dilma Urine Clarity Clear Urine pH 6.0 Urine Specific [place] 1.025 Urine Protein 100 mg/dL (NEG-TRACE) Urine Glucose (UA) Negative mg/dL (NEG) Urine Ketones (Stick) Negative mg/dL (NEG) Urine Blood Negative (NEG) Urine Nitrite Negative (NEG) Urine Bilirubin Negative (NEG) Urine Urobilinogen Dipstick 0.2 mg/dL (0.2 mg/dL) Urine Leukocyte Esterase Negative (NEG) Urine RBC 0 /HPF (0-2) Urine WBC Occ /HPF (0-4) Urine Squamous Epithelial Cells Occ /LPF Urine Amorphous Sediment Present /HPF Urine Bacteria 0 /HPF (0-FEW) Urine Mucus Slight /LPF Clostridium difficile Toxin (PCR) Negative (Negative) Test 10/12/17 10:05 10/13/17 04:45 10/13/17 12:00 Sodium Level 137 mmol/L (136-145) Potassium Level 3.5 mmol/L (3.5-5.1) Chloride Level 104 mmol/L (98-107) Carbon Dioxide Level 19 mmol/L (21-32) Anion Gap 14 (6-14) Blood Urea Nitrogen 15 mg/dL (8-26) Creatinine 1.2 mg/dL (0.7-1.3) Estimated GFR (Cockcroft-Gault) 86.0 Glucose Level 107 mg/dL (70-99) Calcium Level 6.7 mg/dL (8.5-10.1) Magnesium Level 1.5 mg/dL (1.8-2.4) Lactic Acid Level 1.4 mmol/L (0.4-2.0) White Blood Count 6.4 x10^3/uL (4.0-11.0) Red Blood Count 3.42 x10^6/uL (4.30-5.70) Hemoglobin 10.5 g/dL (13.0-17.5) Hematocrit 31.2 % (39.0-53.0) Mean Corpuscular Volume 91 fL (79-100) Mean Corpuscular Hemoglobin 31 pg (25-35) Mean Corpuscular Hemoglobin Concent 34 g/dL (31-37) Red Cell Distribution Width 14.3 % (11.5-14.5) Platelet Count 37 x10^3/uL (140-400) Neutrophils (%) (Auto) 94 % (31-73) Lymphocytes (%) (Auto) 5 % (24-48) Monocytes (%) (Auto) 1 % (0-9) Eosinophils (%) (Auto) 0 % (0-3) Basophils (%) (Auto) 0 % (0-3) Neutrophils # (Auto) 6.0 x10^3uL (1.8-7.7) Lymphocytes # (Auto) 0.3 x10^3/uL (1.0-4.8) Monocytes # (Auto) 0.1 x10^3/uL (0.0-1.1) Eosinophils # (Auto) 0.0 x10^3/uL (0.0-0.7) Basophils # (Auto) 0.0 x10^3/uL (0.0-0.2) Laboratory Tests Test 10/13/17 04:45 10/13/17 12:00 Lactic Acid Level 1.4 mmol/L (0.4-2.0) White Blood Count 6.4 x10^3/uL (4.0-11.0) Red Blood Count 3.42 x10^6/uL (4.30-5.70) Hemoglobin 10.5 g/dL (13.0-17.5) Hematocrit 31.2 % (39.0-53.0) Mean Corpuscular Volume 91 fL (79-100) Mean Corpuscular Hemoglobin 31 pg (25-35) Mean Corpuscular Hemoglobin Concent 34 g/dL (31-37) Red Cell Distribution Width 14.3 % (11.5-14.5) Platelet Count 37 x10^3/uL (140-400) Neutrophils (%) (Auto) 94 % (31-73) Lymphocytes (%) (Auto) 5 % (24-48) Monocytes (%) (Auto) 1 % (0-9) Eosinophils (%) (Auto) 0 % (0-3) Basophils (%) (Auto) 0 % (0-3) Neutrophils # (Auto) 6.0 x10^3uL (1.8-7.7) Lymphocytes # (Auto) 0.3 x10^3/uL (1.0-4.8) Monocytes # (Auto) 0.1 x10^3/uL (0.0-1.1) Eosinophils # (Auto) 0.0 x10^3/uL (0.0-0.7) Basophils # (Auto) 0.0 x10^3/uL (0.0-0.2) Medications Active Scripts Medications Dose Route/Sig Max Daily Dose Days Date Category [place] 5-325 Tablet (Acetaminophen/Hydrocodone Bitart) 1 Each Tablet 1 Tab PO Q4-6HRS 08/11/17 Rx Bactrim Ds Tablet (Sulfamethoxazole/Trimethoprim) 1 Each Tablet 1 Tab PO BID 08/11/17 Rx [place] 5-325 Tablet (Acetaminophen/Hydrocodone Bitart) 1 Each Tablet 1 Tab PO PRN Q6HRS PRN 04/24/16 Rx Bactrim Ds Tablet (Sulfamethoxazole/Trimethoprim) 1 Each Tablet 1 Tab PO BID 04/24/[address] CHEST/ABD/PELVIS 1. Minimal ground-glass opacity in the right middle lobe. 2. Emphysema with parenchymal scarring. 3. Minimal distal ileal mural thickening compatible with nonspecific enteritis. 4. Trace amount of free fluid in the deep pelvis. Impression . 1. Febrile syndrome due to ongoing enteritis.This in a patient who is human immunodeficiency virus with last CD4 count of 55. His chest x-ray is consistent with mild focal infiltrate in the right lower lobe. CT chest with only mild infiltrate in RML. Doubt source of fever. Enteritis is probably source of fever. 2. History of human immunodeficiency virus/acquired immune deficiency syndrome with CD4 count of 55 on HAART treatment. 3. History of tobaccoism. 4. History of asthma. Plan . 1. Continue with broad spectrum antibiotic per Infectious Disease recommendation. stool studies 2. Continue nebulizer. 3. P.r.n. oxygen. 4. Atovaquone Per ID for PCP prophylaxis. 5. CT chest reviewed. mild RML pneumonitis, doubt source of fever. 6. Follow all cultures/ stool cultures JUSTIN KAPLAN MD Oct 13, 2017 12:22
[2017-10-13 12:31] LABS: CALCIUM 7.2 mg/dL (8.5-10.1); GFR 106.2; MAGNESIUM 2.1 mg/dL (1.8-2.4); POTASSIUM 4.1 mmol/L (3.5-5.1)
[2017-10-13] MEDS: HYDROcodone/APAP 5/325MG 1 TAB TABLET PO PRN (13:42)
[2017-10-14] VITALS (12 sets, daily range): BP systolic 124–157; BP diastolic 67–102
[2017-10-14] MEDS: IV NORMAL SALINE 1000ML BAG 1,000 ML IV SCH ×4 (01:16→23:32)
[2017-10-14] MEDS: MEROPENEM IV Push 500 MG VIAL. IVP SCH ×3 (05:31→23:34)
[2017-10-14] MEDS: METOPROLOL TARTRATE 5 MG/5 ML VIAL. IVP SCH ×4 (05:32→23:47)
[2017-10-14] MEDS: ALPRAZolam 0.25 MG TABLET PO PRN (05:39)
[2017-10-14] MEDS: IPRATRPIUM/ALBUTEROL 0.5/2.5MG 3 ML NEBU. NEB SCH ×4 (08:00→19:37)
[2017-10-14] MEDS: ATOVAQUONE 750 MG/5 ML ORAL.SUSP. PO SCH ×2 (08:00→13:41)
[2017-10-14] MEDS: chlorproMAZINE 25 MG TABLET PO SCH ×3 (09:00→23:31)
--- NOTE | 2017-10-14 09:45 | PDOC ---
Infectious Disease Note Subjective Subjective No fever las 24 hours ROS ROS GEN: Denies chills, sweats HEENT: Denies sore throat CV: Denies chest pain RESP: Denies shortness of air, cough GI: Denies n/v Vital Sign Vital Signs Vital Signs Date Time Temp Pulse Resp B/P (MAP) Pulse Ox O2 Delivery O2 Flow Rate FiO2 10/14/17 08:00 77 22 137/80 (99) 99 Nasal Cannula 2.0 10/14/17 04:00 98.5 98.5 Physical Exam PHYSICAL EXAM GENERAL: Lying down, NAD HEENT: PERRL, OC/OP + thrush NECK: Supple LUNGS: Clear, no wheezing, rales or rhonchi, nonlabored, nasal wheeze HEART: S1S2, no gallop, no murmur. regular ABD: Soft, NT, BS active EXT: Trace edema, BEER MERCHANT: Alert, oriented x 3, no focal neurologic deficit SKIN: exfoliating rash - stable IV: ok Labs Lab Laboratory Tests Test 10/13/17 12:00 White Blood Count 6.4 x10^3/uL (4.0-11.0) Red Blood Count 3.42 x10^6/uL (4.30-5.70) Hemoglobin 10.5 g/dL (13.0-17.5) Hematocrit 31.2 % (39.0-53.0) Mean Corpuscular Volume 91 fL (79-100) Mean Corpuscular Hemoglobin 31 pg (25-35) Mean Corpuscular Hemoglobin Concent 34 g/dL (31-37) Red Cell Distribution Width 14.3 % (11.5-14.5) Platelet Count 37 x10^3/uL (140-400) Neutrophils (%) (Auto) 94 % (31-73) Lymphocytes (%) (Auto) 5 % (24-48) Monocytes (%) (Auto) 1 % (0-9) Eosinophils (%) (Auto) 0 % (0-3) Basophils (%) (Auto) 0 % (0-3) Neutrophils # (Auto) 6.0 x10^3uL (1.8-7.7) Lymphocytes # (Auto) 0.3 x10^3/uL (1.0-4.8) Monocytes # (Auto) 0.1 x10^3/uL (0.0-1.1) Eosinophils # (Auto) 0.0 x10^3/uL (0.0-0.7) Basophils # (Auto) 0.0 x10^3/uL (0.0-0.2) Sodium Level 136 mmol/L (136-145) Potassium Level 4.1 mmol/L (3.5-5.1) Chloride Level 106 mmol/L (98-107) Carbon Dioxide Level 21 mmol/L (21-32) Anion Gap 9 (6-14) Blood Urea Nitrogen 20 mg/dL (8-26) Creatinine 1.0 mg/dL (0.7-1.3) Estimated GFR (Cockcroft-Gault) 106.2 Glucose Level 187 mg/dL (70-99) Calcium Level 7.2 mg/dL (8.5-10.1) Magnesium Level 2.1 mg/dL (1.8-2.4) Micro Blood and urine cultures NGTD Objective Assessment HIV/AIDS Fever - better Exfoliative dermatitis,,, drug , ? had rash before Mepron started here but he did have at [facility],, ? [facility] with exfoliation Recent pneumonia Non compliance Diarrhea, c. diff PCR neg Ileitis Thrombocytopenia Plan Plan of Care Meropenem, Levaquin, azithromycin, Genvoya will obtain genotype from [facility] and very complicated pt Compliance with medications discussed f/u C/S and serologies Transferring to floor UMESH CAO APRN Oct 14, 2017 09:45
--- NOTE | 2017-10-14 10:14 | PDOC ---
PROGRESS NOTES Chief Complaint Chief Complaint Assessment/Plan #1 AIDS on HAART #2 fever in an immunocompromised #3 mild to moderate PCM #4 asthma chronic stable #5. HCAP 7 smoker #8 sinus tachycardia History of Present Illness History of Present Illness Better Magnesium is better (was low yesterday) BUT WHEEZY AND CRACKLES TODAY Right hand is swollen Lost IV line Fluids running at 1 75 mL an hour plus ProcalAmine at 80 mL an hour Rectal tube still remains C. difficile negative Less tachycardic, blood pressure better, not any more hypotensive So Far did not need any pressors No fevers Never had a white count Last CD4 count known is 50 Viral load 260 Friend at bedside Wants to go home again I did heavily educate him. He is not ready to go home. He had the same story before coming here went left AMA at [facility] because he " felt better" Plan: 8 transfer out of ICU to medical telemetry Check chest x-ray today He seems puffy, depending on Casie might need extra Lasix Decrease IV fluid 200 mL an hour, so far keep the ProcalAmine-he only a 10% today and even yesterday Watch lytes ; labstomorrow Continue antibiotics per ID C. difficile is negative, Imodium when necessary We'll DC rectal tube once diarrhea subsides Vitals Vitals Vital Signs Date Time Temp Pulse Resp B/P (MAP) Pulse Ox O2 Delivery O2 Flow Rate FiO2 10/14/17 08:00 77 22 137/80 (99) 99 Nasal Cannula 2.0 10/14/17 04:00 98.5 98.5 Physical Exam Physical Exam NECK: Supple, no JVD, no LN LUNGS: Clear RR =30 HEART: S1S2, no gallop, no murmur ABD: Soft, NT, no organomegaly, no rebound EXT: No edema, no cyanosis [employer]: Alert, oriented x 3, no focal neurologic deficit SKIN: rash, with exfoliation, no mucus membrane involvement General: Alert, Oriented X3, Cooperative, No acute distress, Other (cold, multiple blankets on) Heart: Other (TACHY RATE 130) Lungs: Clear Abdomen: Normal bowel sounds, Soft, No tenderness, No hepatosplenomegaly, No masses Extremities: No clubbing, No cyanosis, No edema, Normal pulses, No tenderness/ swelling Skin: Other (flaky dry skin all over the face chest upper extremity) Labs LABS Laboratory Tests Test 10/13/17 12:00 White Blood Count 6.4 x10^3/uL (4.0-11.0) Red Blood Count 3.42 x10^6/uL (4.30-5.70) Hemoglobin 10.5 g/dL (13.0-17.5) Hematocrit 31.2 % (39.0-53.0) Mean Corpuscular Volume 91 fL (79-100) Mean Corpuscular Hemoglobin 31 pg (25-35) Mean Corpuscular Hemoglobin Concent 34 g/dL (31-37) Red Cell Distribution Width 14.3 % (11.5-14.5) Platelet Count 37 x10^3/uL (140-400) Neutrophils (%) (Auto) 94 % (31-73) Lymphocytes (%) (Auto) 5 % (24-48) Monocytes (%) (Auto) 1 % (0-9) Eosinophils (%) (Auto) 0 % (0-3) Basophils (%) (Auto) 0 % (0-3) Neutrophils # (Auto) 6.0 x10^3uL (1.8-7.7) Lymphocytes # (Auto) 0.3 x10^3/uL (1.0-4.8) Monocytes # (Auto) 0.1 x10^3/uL (0.0-1.1) Eosinophils # (Auto) 0.0 x10^3/uL (0.0-0.7) Basophils # (Auto) 0.0 x10^3/uL (0.0-0.2) Sodium Level 136 mmol/L (136-145) Potassium Level 4.1 mmol/L (3.5-5.1) Chloride Level 106 mmol/L (98-107) Carbon Dioxide Level 21 mmol/L (21-32) Anion Gap 9 (6-14) Blood Urea Nitrogen 20 mg/dL (8-26) Creatinine 1.0 mg/dL (0.7-1.3) Estimated GFR (Cockcroft-Gault) 106.2 Glucose Level 187 mg/dL (70-99) Calcium Level 7.2 mg/dL (8.5-10.1) Magnesium Level 2.1 mg/dL (1.8-2.4) Review of Systems Review of Systems Diarrhea, wheezy, SOA, weak, no chest pain, no fever Assessment and Plan Assessmemt and Plan Problems Medical Problems: (1) Elevated brain natriuretic peptide (BNP) level Status: Acute (2) HCAP (healthcare-associated pneumonia) Status: Acute (3) HIV (human immunodeficiency virus infection) Status: Acute (4) Immunosuppression Status: Acute (5) Lactic acid acidosis Status: Acute (6) Sepsis Status: Acute Problems: Comment Review of Relevant I have reviewed the following items nain (where applicable) has been applied. Labs Laboratory Tests Test 10/13/17 04:45 10/13/17 12:00 Lactic Acid Level 1.4 mmol/L (0.4-2.0) White Blood Count 6.4 x10^3/uL (4.0-11.0) Red Blood Count 3.42 x10^6/uL (4.30-5.70) Hemoglobin 10.5 g/dL (13.0-17.5) Hematocrit 31.2 % (39.0-53.0) Mean Corpuscular Volume 91 fL (79-100) Mean Corpuscular Hemoglobin 31 pg (25-35) Mean Corpuscular Hemoglobin Concent 34 g/dL (31-37) Red Cell Distribution Width 14.3 % (11.5-14.5) Platelet Count 37 x10^3/uL (140-400) Neutrophils (%) (Auto) 94 % (31-73) Lymphocytes (%) (Auto) 5 % (24-48) Monocytes (%) (Auto) 1 % (0-9) Eosinophils (%) (Auto) 0 % (0-3) Basophils (%) (Auto) 0 % (0-3) Neutrophils # (Auto) 6.0 x10^3uL (1.8-7.7) Lymphocytes # (Auto) 0.3 x10^3/uL (1.0-4.8) Monocytes # (Auto) 0.1 x10^3/uL (0.0-1.1) Eosinophils # (Auto) 0.0 x10^3/uL (0.0-0.7) Basophils # (Auto) 0.0 x10^3/uL (0.0-0.2) Sodium Level 136 mmol/L (136-145) Potassium Level 4.1 mmol/L (3.5-5.1) Chloride Level 106 mmol/L (98-107) Carbon Dioxide Level 21 mmol/L (21-32) Anion Gap 9 (6-14) Blood Urea Nitrogen 20 mg/dL (8-26) Creatinine 1.0 mg/dL (0.7-1.3) Estimated GFR (Cockcroft-Gault) 106.2 Glucose Level 187 mg/dL (70-99) Calcium Level 7.2 mg/dL (8.5-10.1) Magnesium Level 2.1 mg/dL (1.8-2.4) Laboratory Tests Test 10/13/17 12:00 White Blood Count 6.4 x10^3/uL (4.0-11.0) Red Blood Count 3.42 x10^6/uL (4.30-5.70) Hemoglobin 10.5 g/dL (13.0-17.5) Hematocrit 31.2 % (39.0-53.0) Mean Corpuscular Volume 91 fL (79-100) Mean Corpuscular Hemoglobin 31 pg (25-35) Mean Corpuscular Hemoglobin Concent 34 g/dL (31-37) Red Cell Distribution Width 14.3 % (11.5-14.5) Platelet Count 37 x10^3/uL (140-400) Neutrophils (%) (Auto) 94 % (31-73) Lymphocytes (%) (Auto) 5 % (24-48) Monocytes (%) (Auto) 1 % (0-9) Eosinophils (%) (Auto) 0 % (0-3) Basophils (%) (Auto) 0 % (0-3) Neutrophils # (Auto) 6.0 x10^3uL (1.8-7.7) Lymphocytes # (Auto) 0.3 x10^3/uL (1.0-4.8) Monocytes # (Auto) 0.1 x10^3/uL (0.0-1.1) Eosinophils # (Auto) 0.0 x10^3/uL (0.0-0.7) Basophils # (Auto) 0.0 x10^3/uL (0.0-0.2) Sodium Level 136 mmol/L (136-145) Potassium Level 4.1 mmol/L (3.5-5.1) Chloride Level 106 mmol/L (98-107) Carbon Dioxide Level 21 mmol/L (21-32) Anion Gap 9 (6-14) Blood Urea Nitrogen 20 mg/dL (8-26) Creatinine 1.0 mg/dL (0.7-1.3) Estimated GFR (Cockcroft-Gault) 106.2 Glucose Level 187 mg/dL (70-99) Calcium Level 7.2 mg/dL (8.5-10.1) Magnesium Level 2.1 mg/dL (1.8-2.4) Microbiology 10/11/17 Blood Culture - Preliminary, Resulted NO GROWTH AFTER 2 DAYS 10/12/17 AFB Specimen Processing Tissue - Final, Resulted 10/12/17 Acid Fast Bacilli Culture, Resulted Pending 10/12/17 Gram Stain - Final, Resulted 10/11/17 Throat Culture - Preliminary, Resulted 10/11/17 - Preliminary, Resulted 10/11/17 Urine Culture - Final, Complete 10/11/17 Urine Culture Result 1 (DAVIAN) - Final, Complete Medications Current Medications Sodium Chloride 1,000 ml @ 1,000 mls/hr 1X ONCE IV Last administered on 10/10 01:22; Start 10/10/17 at 00:45; Stop 10/10/17 at 01:44; Status DC Acetaminophen (Tylenol) 1,000 mg 1X ONCE PO Last administered on 10/10/17 01 :07; Start 10/10/17 at 00:45; Stop 10/10/17 at 00:46; Status DC Vancomycin HCl (Vanco Per Pharmacy) 1 each PRN DAILY PRN MC SEE COMMENTS Last administered on 10/10/17 02:47; Start 10/10/17 at 00:30; Stop 10/10/17 at 10 :16; Status DC Piperacillin Sod/ Tazobactam Sod 3.375 gm/Dextrose 50 ml @ 100 mls/hr 1X ONCE IV ; Start 10/10/17 at 00:30; Stop 10/10/17 at 00:59; Status UNV Piperacillin Sod/ Tazobactam Sod (Zosyn) 3.375 gm 1X ONCE IVP Last administered on 10/10/17 00:51; Start 10/10/17 at 00:30; Stop 10/10/17 at 00 :31; Status DC Vancomycin HCl 1.75 gm/Dextrose/ Sodium Chloride 500 ml @ 250 mls/hr 1X ONCE IV Last administered on 10/10/17 00:51; Start 10/10/17 at 01:00; Stop 10/10 at 02:59; Status DC Azithromycin 500 mg/Sodium Chloride 250 ml @ 250 mls/hr 1X ONCE IV ; Start at 01:15; Stop 10/10/17 at 02:14; Status UNV Atovaquone (Mepron) 750 mg 1X ONCE PO Last administered on 10/10/17 01:57; Start 10/10/17 at 01:30; Stop 10/10/17 at 01:31; Status DC Ondansetron HCl (Zofran) 4 mg PRN Q8HRS PRN IV NAUSEA/VOMITING; Start at 01:15; Stop 10/11/17 at 01:14; Status DC Azithromycin 250 ml @ 250 mls/hr 1X ONCE IV Last administered on 10/10/17 02:02; Start 10/10/17 at 01:30; Stop 10/10/17 at 02:29; Status DC Prednisone (Prednisone) 40 mg 1X ONCE PO Last administered on 10/10/17 01:57 ; Start 10/10/17 at 02:00; Stop 10/10/17 at 02:01; Status DC Sodium Chloride 1,000 ml @ 1,000 mls/hr Q1H IV Last administered on 03:30; Start 10/10/17 at 02:30; Stop 10/10/17 at 04:25; Status DC Sodium Chloride 500 ml @ 1,000 mls/hr PRN Q30MIN PRN IV SEE COMMENTS; Start 10/10/17 at 02:15 Norepinephrine Bitartrate 250 ml @ 0 mls/hr CONT PRN IV SEE I/O RECORD; Start 10/10/17 at 02:15; Stop 10/10/17 at 08:33; Status DC Dobutamine HCl/ Dextrose 250 ml @ 0 mls/hr CONT PRN IV SEE I/O RECORD; Start 10/10/17 at 02:15; Stop 10/10/17 at 08:33; Status DC Vancomycin HCl 1.25 gm/Sodium Chloride 250 ml @ 167 mls/hr Q12H IV ; Start at 13:00; Stop 10/10/17 at 13:00; Status DC Vancomycin HCl 1 each 1X ONCE MC ; Start 10/11/17 at 12:30; Stop 10/11/17 at 12:31; Status Cancel Ibuprofen (Motrin) 600 mg PRN Q6HRS PRN PO INFLAMMATION Last administered on 21:07; Start 10/10/17 at 03:30 Chlorpromazine HCl (Thorazine) 25 mg PRN Q6HRS PRN PO HICCUPS Last administered on 10/10/17 03:41; Start 10/10/17 at 03:30; Stop 10/10/17 at 08 :33; Status DC Acetaminophen/ Hydrocodone Bitart (Lortab 5/325) 1 tab PRN Q6HRS PRN PO PAIN Last administered on 10/13/17 13:42; Start 10/10/17 at 08:15 Acetaminophen/ Hydrocodone Bitart (Lortab 5/325) 1 tab QID PRN PO pain; Start 10/10/17 at 08:15; Status UNV Atovaquone (Mepron) 750 mg BID PO Last administered on 10/11/17 09:00; Start 10/10/17 at 09:00; Stop 10/11/17 at 11:21; Status DC Azithromycin 500 mg/Sodium Chloride 250 ml @ 250 mls/hr Q24H IV Last administered on 10/13/17 09:28; Start 10/10/17 at 09:00 Levofloxacin/ Dextrose 150 ml @ 100 mls/hr Q24H IV Last administered on 09:29; Start 10/10/17 at 09:00 Chlorpromazine HCl (Thorazine) 25 mg TID PO Last administered on 10/13/17 20: 32; Start 10/10/17 at 09:00 Albuterol/ Ipratropium (Duoneb) 3 ml RTQID NEB Last administered on 10/13/17 19:59; Start 10/10/17 at 09:00 Albuterol Sulfate (Ventolin Neb Soln) 2.5 mg PRN Q4HRS PRN NEB SHORTNESS OF BREATH; Start 10/10/17 at 08:45 Guaifenesin (Robitussin Dm) 10 ml PRN Q6HRS PRN PO COUGH Last administered on 10/12/17 21:07; Start 10/10/17 at 08:45 Sodium Chloride 1,000 ml @ 100 mls/hr Q10H IV Last administered on 10/11/17 04:45; Start 10/10/17 at 08:45; Stop 10/11/17 at 15:58; Status DC Iohexol (Omnipaque 240 Mg/ml) 30 ml 1X ONCE PO Last administered on 11:20; Start 10/10/17 at 09:00; Stop 10/10/17 at 09:01; Status DC Iohexol (Omnipaque 300 Mg/ml) 75 ml 1X ONCE IV Last administered on 12:45; Start 10/10/17 at 09:00; Stop 10/10/17 at 09:01; Status DC Info (Do NOT chart on this entry -- for MONITORING) 1 each PRN DAILY PRN MC SEE COMMENTS; Start 10/10/17 at 09:00; Stop 10/12/17 at 08:59; Status DC Nicotine (Nicoderm Cq 21mg) 1 patch PRN DAILY PRN TD SMOKING CESSATION; Start 10/10/17 at 09:30 Acetaminophen (Tylenol) 650 mg PRN Q6HRS PRN PO FEVER Last administered on 17:26; Start 10/10/17 at 16:15 Sodium Chloride 1,920 ml @ 1,920 mls/hr Q1H IV Last administered on 15:29; Start 10/11/17 at 13:29; Stop 10/11/17 at 15:56; Status DC Sodium Chloride 500 ml @ 1,000 mls/hr PRN Q30MIN PRN IV SEE COMMENTS; Start 10/11/17 at 13:30 Sodium Chloride 1,000 ml @ 175 mls/min Q6M IV Last administered on 10/11/17 13:51; Start 10/11/17 at 13:33; Stop 10/11/17 at 16:02; Status DC Norepinephrine Bitartrate 250 ml @ 0 mls/hr CONT PRN IV SEE I/O RECORD; Start 10/11/17 at 13:30 Dobutamine HCl/ Dextrose 250 ml @ 0 mls/hr CONT PRN IV SEE I/O RECORD; Start 10/11/17 at 13:30 Meropenem 500 mg/ Sodium Chloride 50 ml @ 100 mls/hr Q8HRS IV ; Start at 14:00; Stop 10/11/17 at 14:00; Status DC Meropenem (Merrem) 500 mg Q8HRS IVP Last administered on 10/14/17 05:31; Start 10/11/17 at 14:00 Potassium Chloride (Klor-Con) 40 meq 1X ONCE PO Last administered on 14:56; Start 10/11/17 at 14:30; Stop 10/11/17 at 14:34; Status DC Sodium Chloride 1,000 ml @ 150 mls/hr Q6H40M IV Last administered on 01:16; Start 10/11/17 at 16:15 Methylprednisolone Sodium Succinate (SOLU-Medrol 40MG VIAL) 40 mg Q12HR IV Last administered on 10/13/17 20:32; Start 10/12/17 at 09:00 Atovaquone (Mepron) 750 mg DAILYWBKFT PO Last administered on 10/13/17 09:27 ; Start 10/12/17 at 08:00 Ondansetron HCl (Zofran) 4 mg PRN Q6HRS PRN IV NAUSEA/VOMITING Last administered on 10/13/17 09:26; Start 10/12/17 at 09:00 Potassium Chloride (Klor-Con) 40 meq 1X ONCE PO Last administered on 10:01; Start 10/12/17 at 09:30; Stop 10/12/17 at 09:31; Status DC Potassium Chloride (Klor-Con) 40 meq DAILYWBKFT PO Last administered on 09:27; Start 10/13/17 at 08:00 Metoprolol Tartrate (Lopressor Vial) 5 mg Q6HRS IVP Last administered on 05:32; Start 10/12/17 at 09:30 Alprazolam (Xanax) 0.25 mg PRN Q6HRS PRN PO ANXIETY / AGITATION Last administered on 10/14/17 05:39; Start 10/12/17 at 18:00 Amino Acids/ Glycerin/ Electrolytes 1,000 ml @ 80 mls/hr [id number] IV Last administered on 10/13/17t 20:31; Start 10/12/17 at 18:00 Magnesium Sulfate/ Dextrose 100 ml @ 25 mls/hr 1X ONCE IV Last administered on 10/13/17 09:30; Start 10/13/17 at 09:00; Stop 10/13/17 at 12:59; Status DC Active Scripts Active [place] 5-325 Tablet (Acetaminophen/Hydrocodone Bitart) 1 Each Tablet 1 Tab PO Q4- 6HRS Bactrim Ds Tablet (Sulfamethoxazole/Trimethoprim) 1 Each Tablet 1 Tab PO BID [place] 5-325 Tablet (Acetaminophen/Hydrocodone Bitart) 1 Each Tablet 1 Tab PO PRN Q6HRS PRN Bactrim Ds Tablet (Sulfamethoxazole/Trimethoprim) 1 Each Tablet 1 Tab PO BID Vitals/I & O Vital Sign - Last 24 Hours 10/13/17 10/13/17 10/13/17 10/13/17 11:00 11:27 12:00 12:00 Pulse 116 107 Resp 28 25 B/P (MAP) 124/79 (94) 147/84 (105) Pulse Ox 94 98 96 O2 Delivery Nasal Cannula Nasal Cannula Nasal Cannula Room Air O2 Flow Rate 2.0 2.0 2.0 2.0 10/13/17 10/13/17 10/13/17 10/13/17 12:53 13:00 13:42 14:00 Pulse 108 95 92 Resp 25 20 22 B/P (MAP) 147/84 153/86 (108) 133/92 (106) Pulse Ox 96 96 96 O2 Delivery Nasal Cannula Room Air Nasal Cannula O2 Flow Rate 2.0 2.0 2.0 10/13/17 10/13/17 10/13/17 10/13/17 14:42 15:00 16:00 16:00 Temp 98.6 98.6 Pulse 88 89 Resp 17 24 23 B/P (MAP) 115/69 (84) 118/72 (87) Pulse Ox 96 98 98 O2 Delivery Nasal Cannula Nasal Cannula Nasal Cannula Room Air O2 Flow Rate 2.0 2.0 2.0 2.0 10/13/17 10/13/17 10/13/17 10/13/17 16:12 17:00 17:24 18:00 Pulse 84 89 82 Resp 23 29 B/P (MAP) 119/69 (86) 118/72 116/89 (98) Pulse Ox 98 98 99 O2 Delivery Nasal Cannula Nasal Cannula Nasal Cannula O2 Flow Rate 2.0 2.0 2.0 10/13/17 10/13/17 10/13/17 10/13/17 19:00 19:35 20:00 20:00 Temp 98.3 98.3 Pulse 104 86 Resp 24 24 B/P (MAP) 120/72 (88) 115/80 (92) Pulse Ox 96 98 96 O2 Delivery Nasal Cannula Nasal Cannula Nasal Cannula Nasal Cannula O2 Flow Rate 2.0 2.0 2.0 2.0 10/13/17 10/13/17 10/13/17 10/13/17 21:00 22:00 23:00 23:31 Pulse 86 90 93 92 Resp 26 26 23 B/P (MAP) 113/65 (81) 119/65 (83) 131/83 (99) 131/83 Pulse Ox 98 97 96 O2 Delivery Nasal Cannula Nasal Cannula Nasal Cannula O2 Flow Rate 2.0 2.0 2.0 10/14/17 10/14/17 10/14/17 10/14/17 00:00 00:02 01:00 02:00 Temp 98.6 98.6 98.6 98.6 Pulse 83 83 83 Resp 20 B/P (MAP) 126/74 (91) 126/74 (91) 141/74 (96) Pulse Ox 97 O2 Delivery Nasal Cannula Nasal Cannula Nasal Cannula Nasal Cannula O2 Flow Rate 2.0 2.0 2.0 10/14/17 10/14/17 10/14/17 10/14/17 04:00 04:00 05:00 05:32 Temp 98.5 98.5 Pulse 84 76 92 Resp 22 B/P (MAP) 138/80 (99) 157/84 (108) 157/84 Pulse Ox 96 97 O2 Delivery Nasal Cannula Nasal Cannula Nasal Cannula O2 Flow Rate 2.0 2.0 2.0 10/14/17 10/14/17 10/14/17 10/14/17 06:00 07:00 08:00 08:00 Pulse 92 76 77 Resp 22 B/P (MAP) 152/95 (114) 138/67 (90) 137/80 (99) Pulse Ox 97 99 99 O2 Delivery Nasal Cannula Nasal Cannula Room Air Nasal Cannula O2 Flow Rate 2.0 2.0 2.0 2.0 Intake and Output 10/13/17 10/13/17 10/14/17 15:00 23:00 07:00 Intake Total 550 ml 3510 ml 340 ml Output Total 2300 ml 710 ml 900 ml Balance -1750 ml 2800 ml -560 ml LEANDRA MADERA MD Oct 14, 2017 10:14
--- NOTE | 2017-10-14 10:42 | PDOC ---
PULMONARY PROGRESS NOTES Subjective fevers/chills IMPROVED loose stools PERSISTENT Vitals Vital Signs Date Time Temp Pulse Resp B/P (MAP) Pulse Ox O2 Delivery O2 Flow Rate FiO2 10/14/17 08:00 77 22 137/80 (99) 99 Nasal Cannula 2.0 10/14/17 04:00 98.5 98.5 ROS: No Nausea, No Chest Pain, No Abdominal Pain, No Increase Cough General: Alert, No acute distress Lungs: Clear Cardiovascular: S1, S2 Abdomen: Soft Neuro Exam: Alert Extremities: No Edema Skin: Warm, Other (exfoliation ) Labs Laboratory Tests Test 10/13/17 04:45 10/13/17 12:00 Lactic Acid Level 1.4 mmol/L (0.4-2.0) White Blood Count 6.4 x10^3/uL (4.0-11.0) Red Blood Count 3.42 x10^6/uL (4.30-5.70) Hemoglobin 10.5 g/dL (13.0-17.5) Hematocrit 31.2 % (39.0-53.0) Mean Corpuscular Volume 91 fL (79-100) Mean Corpuscular Hemoglobin 31 pg (25-35) Mean Corpuscular Hemoglobin Concent 34 g/dL (31-37) Red Cell Distribution Width 14.3 % (11.5-14.5) Platelet Count 37 x10^3/uL (140-400) Neutrophils (%) (Auto) 94 % (31-73) Lymphocytes (%) (Auto) 5 % (24-48) Monocytes (%) (Auto) 1 % (0-9) Eosinophils (%) (Auto) 0 % (0-3) Basophils (%) (Auto) 0 % (0-3) Neutrophils # (Auto) 6.0 x10^3uL (1.8-7.7) Lymphocytes # (Auto) 0.3 x10^3/uL (1.0-4.8) Monocytes # (Auto) 0.1 x10^3/uL (0.0-1.1) Eosinophils # (Auto) 0.0 x10^3/uL (0.0-0.7) Basophils # (Auto) 0.0 x10^3/uL (0.0-0.2) Sodium Level 136 mmol/L (136-145) Potassium Level 4.1 mmol/L (3.5-5.1) Chloride Level 106 mmol/L (98-107) Carbon Dioxide Level 21 mmol/L (21-32) Anion Gap 9 (6-14) Blood Urea Nitrogen 20 mg/dL (8-26) Creatinine 1.0 mg/dL (0.7-1.3) Estimated GFR (Cockcroft-Gault) 106.2 Glucose Level 187 mg/dL (70-99) Calcium Level 7.2 mg/dL (8.5-10.1) Magnesium Level 2.1 mg/dL (1.8-2.4) Laboratory Tests Test 10/13/17 12:00 White Blood Count 6.4 x10^3/uL (4.0-11.0) Red Blood Count 3.42 x10^6/uL (4.30-5.70) Hemoglobin 10.5 g/dL (13.0-17.5) Hematocrit 31.2 % (39.0-53.0) Mean Corpuscular Volume 91 fL (79-100) Mean Corpuscular Hemoglobin 31 pg (25-35) Mean Corpuscular Hemoglobin Concent 34 g/dL (31-37) Red Cell Distribution Width 14.3 % (11.5-14.5) Platelet Count 37 x10^3/uL (140-400) Neutrophils (%) (Auto) 94 % (31-73) Lymphocytes (%) (Auto) 5 % (24-48) Monocytes (%) (Auto) 1 % (0-9) Eosinophils (%) (Auto) 0 % (0-3) Basophils (%) (Auto) 0 % (0-3) Neutrophils # (Auto) 6.0 x10^3uL (1.8-7.7) Lymphocytes # (Auto) 0.3 x10^3/uL (1.0-4.8) Monocytes # (Auto) 0.1 x10^3/uL (0.0-1.1) Eosinophils # (Auto) 0.0 x10^3/uL (0.0-0.7) Basophils # (Auto) 0.0 x10^3/uL (0.0-0.2) Sodium Level 136 mmol/L (136-145) Potassium Level 4.1 mmol/L (3.5-5.1) Chloride Level 106 mmol/L (98-107) Carbon Dioxide Level 21 mmol/L (21-32) Anion Gap 9 (6-14) Blood Urea Nitrogen 20 mg/dL (8-26) Creatinine 1.0 mg/dL (0.7-1.3) Estimated GFR (Cockcroft-Gault) 106.2 Glucose Level 187 mg/dL (70-99) Calcium Level 7.2 mg/dL (8.5-10.1) Magnesium Level 2.1 mg/dL (1.8-2.4) Medications Active Scripts Medications Dose Route/Sig Max Daily Dose Days Date Category [place] 5-325 Tablet (Acetaminophen/Hydrocodone Bitart) 1 Each Tablet 1 Tab PO Q4-6HRS 08/11/17 Rx Bactrim Ds Tablet (Sulfamethoxazole/Trimethoprim) 1 Each Tablet 1 Tab PO BID 08/11/17 Rx [place] 5-325 Tablet (Acetaminophen/Hydrocodone Bitart) 1 Each Tablet 1 Tab PO PRN Q6HRS PRN 04/24/16 Rx Bactrim Ds Tablet (Sulfamethoxazole/Trimethoprim) 1 Each Tablet 1 Tab PO BID 04/24/[address] CHEST/ABD/PELVIS 1. Minimal ground-glass opacity in the right middle lobe. 2. Emphysema with parenchymal scarring. 3. Minimal distal ileal mural thickening compatible with nonspecific enteritis. 4. Trace amount of free fluid in the deep pelvis. Impression . 1. Febrile syndrome due to ongoing enteritis.This in a patient who is human immunodeficiency virus with last CD4 count of 55. His chest x-ray is consistent with mild focal infiltrate in the right lower lobe. CT chest with only mild infiltrate in RML. Doubt source of fever. Enteritis is probably source of fever. 2. History of human immunodeficiency virus/acquired immune deficiency syndrome with CD4 count of 55 on HAART treatment. 3. History of tobaccoism. 4. History of asthma. Plan . 1. Continue with broad spectrum antibiotic per Infectious Disease recommendation. 2. Continue nebulizer. 3. P.r.n. oxygen. 4. Atovaquone Per ID for PCP prophylaxis. 5. CT chest reviewed. mild RML pneumonitis, doubt source of fever. 6. Follow all cultures/ stool cultures clinically improving JUSTIN KAPLAN MD Oct 14, 2017 10:42
[2017-10-14] MEDS: methylPREDNISolone SOD SUCC PF 40 MG/ML VIAL. IV SCH ×3 (10:59→23:33)
[2017-10-14] MEDS: AMINO AC 3%/ELECTROLYTE/GLYCER 1,000 ML IV SCH ×2 (10:59→23:32)
[2017-10-14] MEDS: [UNRECOGNIZED DRUG - OTHER] PO SCH (10:59)
[2017-10-14] MEDS: POTASSIUM CHLORIDE 20 MEQ TABLET.ER. PO SCH (11:00)
[2017-10-14] MEDS ORDERED: IPRATRPIUM/ALBUTEROL 0.5/2.5MG 3 ML NEBU. NEB SCH (12:00)
[2017-10-14] MEDS: AZITHROMYCIN 500 MG in IV NORMAL SALINE 250ML 250 ML IV SCH (13:41)
[2017-10-14] MEDS: LOPERAMIDE 2 MG CAPSULE PO SCH ×3 (13:42→23:31)
--- NOTE | 2017-10-14 14:35 | RAD ---
AP chest 10/14/2017 Clinical indication: Wheezing, short of air, crackles. Comparison: AP chest 10/11/2017 Findings: Hypoinflation of both lungs with bibasilar consolidation. No definite pleural effusion or pneumothorax. Heart is mildly enlarged without pulmonary venous congestion. Impression: 1. Bibasilar consolidation which may represent aspiration, atelectasis or multifocal pneumonia. 2. Mild cardiomegaly.
[2017-10-14] MEDS: MICAFUNGIN 100 MG in IV NORMAL SALINE 100ML 100 ML IV SCH (17:25)
[2017-10-14] MEDS: diphenhydrAMINE 50 MG/ML VIAL IVP PRN (19:42)
[2017-10-14] MEDS: MINERAL OIL/PETROLATUM TOPICAL CREAM 113GM JAR. TP PRN (23:38)
[2017-10-14] MEDS: guaiFENesin DM 200MG/20MG 10 ML SYRUP PO PRN (23:45)
[2017-10-14] MEDS: HYDROcodone/APAP 10/325 1 TAB TABLET PO PRN (23:46)
[2017-10-14] MEDS: ALPRAZolam 1 MG TABLET PO PRN (23:47)
[2017-10-15 01:10] LABS: G-6-PD QUANT 9.8 U/g Hb (4.6-13.5); G6PD HGB 10.8 g/dL (13.0-17.7)
[2017-10-15] MEDS: diphenhydrAMINE 50 MG/ML VIAL IVP PRN (02:08)
[2017-10-15] MEDS: IV NORMAL SALINE 1000ML BAG 1,000 ML IV SCH ×2 (02:08→16:39)
[2017-10-15] MEDS: oxyCODONE IR 5 MG TABLET PO PRN (02:09)
[2017-10-15 03:00] VITALS: BP 128/98
[2017-10-15] MEDS: LOPERAMIDE 2 MG CAPSULE PO SCH ×6 (05:27→22:31)
[2017-10-15] MEDS: METOPROLOL TARTRATE 5 MG/5 ML VIAL. IVP SCH ×3 (05:28→16:39)
[2017-10-15] MEDS: MEROPENEM IV Push 500 MG VIAL. IVP SCH ×3 (05:28→22:32)
[2017-10-15] MEDS: ALPRAZolam 1 MG TABLET PO PRN (05:35)
[2017-10-15] MEDS: guaiFENesin DM 200MG/20MG 10 ML SYRUP PO PRN (05:35)
[2017-10-15] MEDS: HYDROcodone/APAP 10/325 1 TAB TABLET PO PRN (05:35)
[2017-10-15 07:00] VITALS: BP 136/90
[2017-10-15] MEDS: IPRATRPIUM/ALBUTEROL 0.5/2.5MG 3 ML NEBU. NEB SCH ×4 (07:46→21:28)
[2017-10-15] MEDS ORDERED: ALPR2TAB2 PO (07:55)
[2017-10-15] MEDS ORDERED: IBUP-1060 PO (07:55)
[2017-10-15] MEDS ORDERED: OXYC15TA PO (07:55)
[2017-10-15] MEDS ORDERED: HYDR-2766 PO (07:55)
[2017-10-15] MEDS: AMINO AC 3%/ELECTROLYTE/GLYCER 1,000 ML IV SCH ×2 (09:00→22:33)
[2017-10-15] MEDS: AZITHROMYCIN 500 MG in IV NORMAL SALINE 250ML 250 ML IV SCH (09:02)
[2017-10-15] MEDS: [UNRECOGNIZED DRUG - OTHER] PO SCH (09:02)
[2017-10-15] MEDS: POTASSIUM CHLORIDE 20 MEQ TABLET.ER. PO SCH (09:03)
[2017-10-15] MEDS: chlorproMAZINE 25 MG TABLET PO SCH ×3 (09:03→22:31)
[2017-10-15] MEDS: methylPREDNISolone SOD SUCC PF 40 MG/ML VIAL. IV SCH ×2 (09:04→22:33)
[2017-10-15] MEDS: ATOVAQUONE 750 MG/5 ML ORAL.SUSP. PO SCH (09:04)
--- NOTE | 2017-10-15 09:42 | PDOC ---
PROGRESS NOTES Chief Complaint Chief Complaint sepsis, fever tachycardia and tachypnea, was present on admission AIDS on HAART fever in an immunocompromised mild to moderate PCM asthma, acute exacerbationchronic stable . HCAP, pneumonia with acute hypoxic respiratory failure tobacco abuse disorder History of Present Illness History of Present Illness very lethargic today, falls back asleep after a few minutes, has been sleeping most of the morning was found outside the hospital last night with his sister and brought back by security, will check urine drug screen Right hand is swollen rocalAmine at 80 mL an hour Rectal tube still remains, try to DC vitals still OK out of ICU Viral load 260 his brother at bedside Vitals Vitals Vital Signs Date Time Temp Pulse Resp B/P (MAP) Pulse Ox O2 Delivery O2 Flow Rate FiO2 10/15/17 07:46 98 Nasal Cannula 2.0 10/15/17 07:22 18 10/15/17 07:00 97.6 90 136/90 (105) 97.6 Physical Exam Physical Exam NECK: Supple, no JVD, no LN LUNGS: Clear RR =30 HEART: S1S2, no gallop, no murmur ABD: Soft, NT, no organomegaly, no rebound EXT: No edema, no cyanosis 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 ASSEMBLER: Alert, oriented x 3, no focal neurologic deficit SKIN: rash, with exfoliation, no mucus membrane involvement General: Alert, Oriented X3, Cooperative, No acute distress, Other (cold, multiple blankets on) Heart: Other (TACHY RATE 130) Lungs: Clear Abdomen: Normal bowel sounds, Soft, No tenderness, No hepatosplenomegaly, No masses Extremities: No clubbing, No cyanosis, No edema, Normal pulses, No tenderness/ swelling Skin: Other (flaky dry skin all over the face chest upper extremity) Assessment and Plan Assessmemt and Plan Problems Medical Problems: (1) Elevated brain natriuretic peptide (BNP) level Status: Acute (2) HCAP (healthcare-associated pneumonia) Status: Acute (3) HIV (human immunodeficiency virus infection) Status: Acute (4) Immunosuppression Status: Acute (5) Lactic acid acidosis Status: Acute (6) Sepsis Status: Acute Problems: Comment Review of Relevant I have reviewed the following items nain (where applicable) has been applied. Labs Laboratory Tests Test 10/13/17 12:00 White Blood Count 6.4 x10^3/uL (4.0-11.0) Red Blood Count 3.42 x10^6/uL (4.30-5.70) Hemoglobin 10.5 g/dL (13.0-17.5) Hematocrit 31.2 % (39.0-53.0) Mean Corpuscular Volume 91 fL (79-100) Mean Corpuscular Hemoglobin 31 pg (25-35) Mean Corpuscular Hemoglobin Concent 34 g/dL (31-37) Red Cell Distribution Width 14.3 % (11.5-14.5) Platelet Count 37 x10^3/uL (140-400) Neutrophils (%) (Auto) 94 % (31-73) Lymphocytes (%) (Auto) 5 % (24-48) Monocytes (%) (Auto) 1 % (0-9) Eosinophils (%) (Auto) 0 % (0-3) Basophils (%) (Auto) 0 % (0-3) Neutrophils # (Auto) 6.0 x10^3uL (1.8-7.7) Lymphocytes # (Auto) 0.3 x10^3/uL (1.0-4.8) Monocytes # (Auto) 0.1 x10^3/uL (0.0-1.1) Eosinophils # (Auto) 0.0 x10^3/uL (0.0-0.7) Basophils # (Auto) 0.0 x10^3/uL (0.0-0.2) Sodium Level 136 mmol/L (136-145) Potassium Level 4.1 mmol/L (3.5-5.1) Chloride Level 106 mmol/L (98-107) Carbon Dioxide Level 21 mmol/L (21-32) Anion Gap 9 (6-14) Blood Urea Nitrogen 20 mg/dL (8-26) Creatinine 1.0 mg/dL (0.7-1.3) Estimated GFR (Cockcroft-Gault) 106.2 Glucose Level 187 mg/dL (70-99) Calcium Level 7.2 mg/dL (8.5-10.1) Magnesium Level 2.1 mg/dL (1.8-2.4) Microbiology 10/11/17 Blood Culture - Preliminary, Resulted NO GROWTH AFTER 3 DAYS 10/12/17 AFB Specimen Processing Tissue - Final, Resulted 10/12/17 Acid Fast Bacilli Culture, Resulted Pending 10/12/17 Gram Stain - Final, Resulted 10/11/17 Throat Culture - Final, Complete 10/11/17 - Final, Complete 10/11/17 Urine Culture - Final, Complete 10/11/17 Urine Culture Result 1 (DAVIAN) - Final, Complete Medications Current Medications Sodium Chloride 1,000 ml @ 1,000 mls/hr 1X ONCE IV Last administered on 10/10 01:22; Start 10/10/17 at 00:45; Stop 10/10/17 at 01:44; Status DC Acetaminophen (Tylenol) 1,000 mg 1X ONCE PO Last administered on 10/10/17 01 :07; Start 10/10/17 at 00:45; Stop 10/10/17 at 00:46; Status DC Vancomycin HCl (Vanco Per Pharmacy) 1 each PRN DAILY PRN MC SEE COMMENTS Last administered on 10/10/17 02:47; Start 10/10/17 at 00:30; Stop 10/10/17 at 10 :16; Status DC Piperacillin Sod/ Tazobactam Sod 3.375 gm/Dextrose 50 ml @ 100 mls/hr 1X ONCE IV ; Start 10/10/17 at 00:30; Stop 10/10/17 at 00:59; Status UNV Piperacillin Sod/ Tazobactam Sod (Zosyn) 3.375 gm 1X ONCE IVP Last administered on 10/10/17 00:51; Start 10/10/17 at 00:30; Stop 10/10/17 at 00 :31; Status DC Vancomycin HCl 1.75 gm/Dextrose/ Sodium Chloride 500 ml @ 250 mls/hr 1X ONCE IV Last administered on 10/10/17 00:51; Start 10/10/17 at 01:00; Stop 10/10 at 02:59; Status DC Azithromycin 500 mg/Sodium Chloride 250 ml @ 250 mls/hr 1X ONCE IV ; Start at 01:15; Stop 10/10/17 at 02:14; Status UNV Atovaquone (Mepron) 750 mg 1X ONCE PO Last administered on 10/10/17 01:57; Start 10/10/17 at 01:30; Stop 10/10/17 at 01:31; Status DC Ondansetron HCl (Zofran) 4 mg PRN Q8HRS PRN IV NAUSEA/VOMITING; Start at 01:15; Stop 10/11/17 at 01:14; Status DC Azithromycin 250 ml @ 250 mls/hr 1X ONCE IV Last administered on 10/10/17 02:02; Start 10/10/17 at 01:30; Stop 10/10/17 at 02:29; Status DC Prednisone (Prednisone) 40 mg 1X ONCE PO Last administered on 10/10/17 01:57 ; Start 10/10/17 at 02:00; Stop 10/10/17 at 02:01; Status DC Sodium Chloride 1,000 ml @ 1,000 mls/hr Q1H IV Last administered on 03:30; Start 10/10/17 at 02:30; Stop 10/10/17 at 04:25; Status DC Sodium Chloride 500 ml @ 1,000 mls/hr PRN Q30MIN PRN IV SEE COMMENTS; Start 10/10/17 at 02:15 Norepinephrine Bitartrate 250 ml @ 0 mls/hr CONT PRN IV SEE I/O RECORD; Start 10/10/17 at 02:15; Stop 10/10/17 at 08:33; Status DC Dobutamine HCl/ Dextrose 250 ml @ 0 mls/hr CONT PRN IV SEE I/O RECORD; Start 10/10/17 at 02:15; Stop 10/10/17 at 08:33; Status DC Vancomycin HCl 1.25 gm/Sodium Chloride 250 ml @ 167 mls/hr Q12H IV ; Start at 13:00; Stop 10/10/17 at 13:00; Status DC Vancomycin HCl 1 each 1X ONCE MC ; Start 10/11/17 at 12:30; Stop 10/11/17 at 12:31; Status Cancel Ibuprofen (Motrin) 600 mg PRN Q6HRS PRN PO INFLAMMATION Last administered on 21:07; Start 10/10/17 at 03:30 Chlorpromazine HCl (Thorazine) 25 mg PRN Q6HRS PRN PO HICCUPS Last administered on 10/10/17 03:41; Start 10/10/17 at 03:30; Stop 10/10/17 at 08 :33; Status DC Acetaminophen/ Hydrocodone Bitart (Lortab 5/325) 1 tab PRN Q6HRS PRN PO PAIN Last administered on 10/13/17 13:42; Start 10/10/17 at 08:15 Acetaminophen/ Hydrocodone Bitart (Lortab 5/325) 1 tab QID PRN PO pain; Start 10/10/17 at 08:15; Status UNV Atovaquone (Mepron) 750 mg BID PO Last administered on 10/11/17 09:00; Start 10/10/17 at 09:00; Stop 10/11/17 at 11:21; Status DC Azithromycin 500 mg/Sodium Chloride 250 ml @ 250 mls/hr Q24H IV Last administered on 10/15/17 09:02; Start 10/10/17 at 09:00 Levofloxacin/ Dextrose 150 ml @ 100 mls/hr Q24H IV Last administered on 15:37; Start 10/10/17 at 09:00 Chlorpromazine HCl (Thorazine) 25 mg TID PO Last administered on 10/15/17 09: 03; Start 10/10/17 at 09:00 Albuterol/ Ipratropium (Duoneb) 3 ml RTQID NEB Last administered on 10/15/17 07:46; Start 10/10/17 at 09:00 Albuterol Sulfate (Ventolin Neb Soln) 2.5 mg PRN Q4HRS PRN NEB SHORTNESS OF BREATH; Start 10/10/17 at 08:45 Guaifenesin (Robitussin Dm) 10 ml PRN Q6HRS PRN PO COUGH Last administered on 10/15/17 05:35; Start 10/10/17 at 08:45 Sodium Chloride 1,000 ml @ 100 mls/hr Q10H IV Last administered on 10/11/17 04:45; Start 10/10/17 at 08:45; Stop 10/11/17 at 15:58; Status DC Iohexol (Omnipaque 240 Mg/ml) 30 ml 1X ONCE PO Last administered on 11:20; Start 10/10/17 at 09:00; Stop 10/10/17 at 09:01; Status DC Iohexol (Omnipaque 300 Mg/ml) 75 ml 1X ONCE IV Last administered on 12:45; Start 10/10/17 at 09:00; Stop 10/10/17 at 09:01; Status DC Info (Do NOT chart on this entry -- for MONITORING) 1 each PRN DAILY PRN MC SEE COMMENTS; Start 10/10/17 at 09:00; Stop 10/12/17 at 08:59; Status DC Nicotine (Nicoderm Cq 21mg) 1 patch PRN DAILY PRN TD SMOKING CESSATION; Start 10/10/17 at 09:30 Acetaminophen (Tylenol) 650 mg PRN Q6HRS PRN PO FEVER Last administered on 17:26; Start 10/10/17 at 16:15 Sodium Chloride 1,920 ml @ 1,920 mls/hr Q1H IV Last administered on 15:29; Start 10/11/17 at 13:29; Stop 10/11/17 at 15:56; Status DC Sodium Chloride 500 ml @ 1,000 mls/hr PRN Q30MIN PRN IV SEE COMMENTS; Start 10/11/17 at 13:30 Sodium Chloride 1,000 ml @ 175 mls/min Q6M IV Last administered on 10/11/17 13:51; Start 10/11/17 at 13:33; Stop 10/11/17 at 16:02; Status DC Norepinephrine Bitartrate 250 ml @ 0 mls/hr CONT PRN IV SEE I/O RECORD; Start 10/11/17 at 13:30; Stop 10/14/17 at 10:15; Status DC Dobutamine HCl/ Dextrose 250 ml @ 0 mls/hr CONT PRN IV SEE I/O RECORD; Start 10/11/17 at 13:30 Meropenem 500 mg/ Sodium Chloride 50 ml @ 100 mls/hr Q8HRS IV ; Start at 14:00; Stop 10/11/17 at 14:00; Status DC Meropenem (Merrem) 500 mg Q8HRS IVP Last administered on 10/15/17 05:28; Start 10/11/17 at 14:00 Potassium Chloride (Klor-Con) 40 meq 1X ONCE PO Last administered on 14:56; Start 10/11/17 at 14:30; Stop 10/11/17 at 14:34; Status DC Sodium Chloride 1,000 ml @ 100 mls/hr Q10H IV Last administered on 10/15/17 02:08; Start 10/11/17 at 16:15 Methylprednisolone Sodium Succinate (SOLU-Medrol 40MG VIAL) 40 mg Q12HR IV Last administered on 10/15/17 09:04; Start 10/12/17 at 09:00 Atovaquone (Mepron) 750 mg DAILYWBKFT PO Last administered on 10/15/17 09:04 ; Start 10/12/17 at 08:00 Ondansetron HCl (Zofran) 4 mg PRN Q6HRS PRN IV NAUSEA/VOMITING Last administered on 10/13/17 09:26; Start 10/12/17 at 09:00 Potassium Chloride (Klor-Con) 40 meq 1X ONCE PO Last administered on 10:01; Start 10/12/17 at 09:30; Stop 10/12/17 at 09:31; Status DC Potassium Chloride (Klor-Con) 40 meq DAILYWBKFT PO Last administered on 09:03; Start 10/13/17 at 08:00 Metoprolol Tartrate (Lopressor Vial) 5 mg Q6HRS IVP Last administered on 05:28; Start 10/12/17 at 09:30 Alprazolam (Xanax) 0.25 mg PRN Q6HRS PRN PO ANXIETY / AGITATION Last administered on 10/14/17 05:39; Start 10/12/17 at 18:00; Stop 10/14/17 at 22 :00; Status DC Amino Acids/ Glycerin/ Electrolytes 1,000 ml @ 80 mls/hr [id number] IV Last administered on 10/15/17 09:00; Start 10/12/17 at 18:00 Magnesium Sulfate/ Dextrose 100 ml @ 25 mls/hr 1X ONCE IV Last administered on 10/13/17 09:30; Start 10/13/17 at 09:00; Stop 10/13/17 at 12:59; Status DC Albuterol/ Ipratropium (Duoneb) 3 ml RTQID NEB ; Start 10/14/17 at 12:00; Status UNV Loperamide HCl (Imodium) 2 mg Q4HRS PO Last administered on 10/15/17 09:03; Start 10/14/17 at 12:00 Micafungin Sodium 100 mg/Sodium Chloride 100 ml @ 100 mls/hr Q24H IV Last administered on 10/14/17 17:25; Start 10/14/17 at 15:00 Diphenhydramine HCl (Benadryl) 50 mg PRN Q6HRS PRN IVP ITCHING Last administered on 10/15/17 02:08; Start 10/14/17 at 17:45 Alprazolam (Xanax) 1 mg PRN Q6HRS PRN PO ANXIETY / AGITATION Last administered on 10/15/17 05:35; Start 10/14/17 at 22:00 Multi-Ingred Cream/Lotion/Oil/ Oint (Hydrocerin Cream) 1 frannie PRN Q1HR PRN TP DRY SKIN / SCALING Last administered on 10/14/17 23:38; Start 10/14/17 at 22: 00 Acetaminophen/ Hydrocodone Bitart (Lortab 10/325) 1 tab PRN Q6HRS PRN PO PAIN Last administered on 10/15/17 05:35; Start 10/14/17 at 22:00 Oxycodone HCl (Roxicodone) 15 mg PRN Q6HRS PRN PO PAIN Last administered on 02:09; Start 10/14/17 at 22:00 Active Scripts Active [place] 5-325 Tablet (Acetaminophen/Hydrocodone Bitart) 1 Each Tablet 1 Tab PO Q4- 6HRS Bactrim Ds Tablet (Sulfamethoxazole/Trimethoprim) 1 Each Tablet 1 Tab PO BID Bactrim Ds Tablet (Sulfamethoxazole/Trimethoprim) 1 Each Tablet 1 Tab PO BID Reported Oxycodone Hcl 15 Mg Tablet 15 Mg PO PRN TID PRN Ibuprofen 800 Mg Tablet 800 Mg PO PRN Q6HRS PRN Xanax (Alprazolam) 2 Mg Tablet 2 Mg PO PRN TID PRN Hydrocodone-Apap 10-325 (Hydrocodone Bit/Acetaminophen) 1 Each Tablet 1 Tab PO PRN Q6HRS PRN Vitals/I & O Vital Sign - Last 24 Hours 10/14/17 10/14/17 10/14/17 10/14/17 11:59 12:00 13:41 15:51 Temp 98.2 97.7 98.2 97.7 Pulse 76 76 92 Resp 16 16 B/P (MAP) 126/80 (95) 126/80 124/74 (91) Pulse Ox 96 92 95 O2 Delivery Nasal Cannula Nasal Cannula Nasal Cannula O2 Flow Rate 2.0 2.0 2.0 10/14/17 10/14/17 10/14/17 10/14/17 16:53 19:39 19:41 20:00 Temp 97.9 97.9 Pulse 92 88 Resp 21 B/P (MAP) 124/74 138/101 (113) Pulse Ox 95 94 91 O2 Delivery Nasal Cannula Nasal Cannula Nasal Cannula O2 Flow Rate 2.0 2.0 2.0 10/14/17 10/14/17 10/14/17 10/14/17 20:10 23:00 23:46 23:47 Temp 98.8 98.8 Pulse 84 88 Resp 18 18 B/P (MAP) 132/102 (112) 138/101 Pulse Ox 96 91 O2 Delivery Nasal Cannula Nasal Cannula Room Air O2 Flow Rate 2.0 2.0 2.0 10/15/17 10/15/17 10/15/17 10/15/17 02:09 03:00 03:24 05:28 Temp 98.1 98.1 Pulse 82 82 Resp 18 19 18 B/P (MAP) 128/98 (108) 128/98 Pulse Ox 91 93 91 O2 Delivery Nasal Cannula Nasal Cannula Nasal Cannula O2 Flow Rate 2.0 2.0 10/15/17 10/15/17 10/15/17 10/15/17 05:35 07:00 07:22 07:46 Temp 97.6 97.6 Pulse 90 Resp 18 17 18 B/P (MAP) 136/90 (105) Pulse Ox 91 90 91 98 O2 Delivery Nasal Cannula Nasal Cannula Nasal Cannula Nasal Cannula O2 Flow Rate 2.0 3.0 2.0 2.0 Intake and Output 10/14/17 10/14/17 10/15/17 15:00 23:00 07:00 Intake Total 300 ml 800 ml 120 ml Output Total 400 ml Balance 300 ml 800 ml -280 ml BHAVIN BATES MD Oct 15, 2017 09:42
[2017-10-15 10:58] VITALS: BP 127/76
[2017-10-15 12:30] LABS: BASE EXCESS COOX -5 mmol/L (-3-3); CARBON MONOXIDE 0.3 % (0.0-1.9); HCO3 COOX 20 mmol/L (21-28); METHEMOGLOBIN 0.2 % (0.0-1.9); OXYHEMOGLOBIN 95.9 %; PCO2 COOX 37 mmHg (35-46); PH COOX 7.35 (7.35-7.45); PO2 COOX 97 mmHg (85-108); SAT O2 COOX 96 % (92-99); TOTAL HEMOGLOBIN 13.1 g/dL
[2017-10-15 12:33] LABS: FIO2 COOX 32%
--- NOTE | 2017-10-15 12:58 | PDOC ---
Infectious Disease Note Subjective Subjective pt says feels tired, has sob, now on 5L O2 by NC No fevers or chills Vital Sign Vital Signs Vital Signs Date Time Temp Pulse Resp B/P (MAP) Pulse Ox O2 Delivery O2 Flow Rate FiO2 10/15/17 11:30 Nasal Cannula 2.0 10/15/17 11:26 78 127/76 10/15/17 10:58 97.8 8 96 97.8 Physical Exam PHYSICAL EXAM GENERAL: NAD, Alert,tired appearing HEENT: eyelid swelling present,no petechiae, NECK: Supple, no JVD, no LN LUNGS: dec bs in bases, no wheezing HEART: S1S2, no gallop, no murmur ABD: Soft, NT, no organomegaly, no rebound EXT: trace edema, no cyanosis ADMINISTRATIVE PROGRAM SPECIALIST: Alert, oriented x 3, no focal neurologic deficit SKIN: dermatitis improving IV: ok Labs Lab Laboratory Tests Test 10/15/17 12:00 O2 Saturation 96 % (92-99) Arterial Blood pH 7.35 (7.35-7.45) Arterial Blood pCO2 at Patient Temp 37 mmHg (35-46) Arterial Blood pO2 at Patient Temp 97 mmHg (85-108) Arterial Blood HCO3 20 mmol/L (21-28) Arterial Blood Base Excess -5 mmol/L (-3-3) Oxyhemoglobin 95.9 % Methemoglobin 0.2 % (0.0-1.9) Carbon Monoxide, Quantitative 0.3 % (0.0-1.9) FiO2 32% Micro reviewed will call [facility] and f/u AFB BC, CMV results urine histo ag results crypto ag neg per med records Objective Assessment HIV/AIDS F/U [facility] ,Cd4 at [facility] 55, VL > 2000 admitted with Fever now resolved,bc neg, stool afb stain neg, stool c/s neg Exfoliative dermatitis,,, drug , ? had rash before Mepron started here but he did have at [facility],, ? vanco with exfoliation ,had rocephin, azithromycin, levaquin, pentamidine per notes at [facility] Recent pneumonia s/p bronch at [facility] neg c/s per record review ,tx with rocephin, azithromycin, pentamidine , dc home on levaquin and pt returned for admission here h/o Non compliance Diarrhea, c. diff PCR neg Ileitis Thrombocytopenia Plan Plan of Care Continue broad spectrum antibiotics Meropenem, Levaquin, continue azithromycin( empiric GI coverage), continue Genvoya Fever improving though pt is sick and complicated history with multiple hosp recently at [facility],F/U [facility] f/u C/S and serologies local skin care agree with CXR,UA,Urine C/S if indicated will call and f/u c/s results from Micro at [facility] Maintain aspiration precautions check cmv dez pcr send crypto ag afb bc D/W family at bedside LYNNETTE KO MD Oct 15, 2017 12:58
[2017-10-15] MEDS: MICAFUNGIN 100 MG in IV NORMAL SALINE 100ML 100 ML IV SCH (13:17)
--- NOTE | 2017-10-15 13:57 | PDOC ---
Provider Note Provider Note SEND REQUEST TO C MEDICATIONS ANTIBIOTIC GIVEN BRONCH C/S RESULTS AFB BC RESULTS LABS CMV QUANTITATIVE PCR URINE HISTO AG SERUM CRYPTO AG LYNNETTE KO MD Oct 15, 2017 13:57
[2017-10-15 15:00] VITALS: BP 136/85
[2017-10-15 15:08] LABS: BARBITURATES NEG (NEG); BENZODIAZEPINES POS (NEG); CANNABINOIDS POS (NEG); COCAINE NEG (NEG); METHADONE NEG (NEG); OPIATES POS (NEG); PHENCYCLIDINE NEG (NEG)
--- NOTE | 2017-10-15 16:24 | RAD ---
CT scan of the head without contrast 10/15/2017 Clinical History: Mental status changes. AIDS. Technique: Unenhanced, contiguous, 5 mm axial sections were obtained through the head. One or more of the following individualized dose reduction techniques were utilized for this study: 1. Automated exposure control. 2. Adjustment of the mA and/or kV according to patient size. 3. Use of iterative reconstruction technique. Findings: No previous studies are available for comparison. There is generalized parenchymal atrophy. No acute parenchymal abnormality is seen. No extra-axial fluid collection is noted. No skull fracture is seen. Impression: No acute intracranial abnormality is seen.
--- NOTE | 2017-10-15 17:12 | PDOC2 ---
PALLIATIVE CARE Palliative Care Note Palliative Care Patient drowsy. Interacting with friends/family but falls asleep during few short words in conversation. Mother states he is saying things that don't make sense. Met with Mother Araceli Hutson--aunt who goes to [employer] with patient; Nallely-- grandmother whom patient lives with most of time; Blanka--sister; Brother and sister not able to attend; Kian--aunt joined the meeting and was updated. Family is aware of diagnosis: HIV; elevated BNP; pneumonia; Immunosuppression, sepsis. Reviewed labs with family. 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 Family confronted this person. Aunt Sunita sees decline in sensorium today compared to yesterday when he was alert and conversing more normal. Mother and grandmother shared that patient struggled through school Quite in 10th grade--had tried to complete GED but has not done this. Patient is also experiencing "legal problems" Mother is assisting with finding help Family states he is a "follower" Patient received support ( disability information, counseling, and advocate ) from [facility] but did not follow-up. They feel he needs psychiatric counseling and that reality has not "set in" Patient per family was diagnosed with "Borderline Learning Disability" as a child. Has always struggled with anxiety and depression. 'In and Out of Long-Term" Family wants to continue with Full aggressive treatment. Understands the importance of taking anti-viral medication to live. Plan: Continue current treatment plan. Family would be in favor of limiting visitors LTAC screen; Mother aware. OCTAVIA VICTOR Oct 15, 2017 17:12
[2017-10-15 19:00] VITALS: BP 150/62
--- NOTE | 2017-10-15 19:04 | PDOC ---
PULMONARY PROGRESS NOTES Subjective fevers/chills IMPROVED loose stools PERSISTENT Vitals Vital Signs Date Time Temp Pulse Resp B/P (MAP) Pulse Ox O2 Delivery O2 Flow Rate FiO2 10/15/17 16:39 74 136/85 10/15/17 16:23 Nasal Cannula 2.0 10/15/17 15:00 97.7 18 93 97.7 ROS: No Nausea, No Chest Pain, No Abdominal Pain, No Increase Cough General: Alert, No acute distress Lungs: Clear Cardiovascular: S1, S2 Abdomen: Soft Neuro Exam: Alert Extremities: No Edema Skin: Warm, Other (exfoliation ) Labs Laboratory Tests Test 10/15/17 12:00 10/15/17 14:00 O2 Saturation 96 % (92-99) Arterial Blood pH 7.35 (7.35-7.45) Arterial Blood pCO2 at Patient Temp 37 mmHg (35-46) Arterial Blood pO2 at Patient Temp 97 mmHg (85-108) Arterial Blood HCO3 20 mmol/L (21-28) Arterial Blood Base Excess -5 mmol/L (-3-3) Oxyhemoglobin 95.9 % Methemoglobin 0.2 % (0.0-1.9) Carbon Monoxide, Quantitative 0.3 % (0.0-1.9) FiO2 32% Urine Opiates Screen Pos (NEG) Urine Methadone Screen Neg (NEG) Urine Barbiturates Neg (NEG) Urine Phencyclidine Screen Neg (NEG) Urine Amphetamine/Methamphetamine Neg (NEG) Urine Benzodiazepines Screen Pos (NEG) Urine Cocaine Screen Neg (NEG) Urine Cannabinoids Screen Pos (NEG) Urine Ethyl Alcohol Neg (NEG) Laboratory Tests Test 10/15/17 12:00 10/15/17 14:00 O2 Saturation 96 % (92-99) Arterial Blood pH 7.35 (7.35-7.45) Arterial Blood pCO2 at Patient Temp 37 mmHg (35-46) Arterial Blood pO2 at Patient Temp 97 mmHg (85-108) Arterial Blood HCO3 20 mmol/L (21-28) Arterial Blood Base Excess -5 mmol/L (-3-3) Oxyhemoglobin 95.9 % Methemoglobin 0.2 % (0.0-1.9) Carbon Monoxide, Quantitative 0.3 % (0.0-1.9) FiO2 32% Urine Opiates Screen Pos (NEG) Urine Methadone Screen Neg (NEG) Urine Barbiturates Neg (NEG) Urine Phencyclidine Screen Neg (NEG) Urine Amphetamine/Methamphetamine Neg (NEG) Urine Benzodiazepines Screen Pos (NEG) Urine Cocaine Screen Neg (NEG) Urine Cannabinoids Screen Pos (NEG) Urine Ethyl Alcohol Neg (NEG) Medications Active Scripts Medications Dose Route/Sig Max Daily Dose Days Date Category [place] 5-325 Tablet (Acetaminophen/Hydrocodone Bitart) 1 Each Tablet 1 Tab PO Q4-6HRS 08/11/17 Rx Bactrim Ds Tablet (Sulfamethoxazole/Trimethoprim) 1 Each Tablet 1 Tab PO BID 08/11/17 Rx [place] 5-325 Tablet (Acetaminophen/Hydrocodone Bitart) 1 Each Tablet 1 Tab PO PRN Q6HRS PRN 04/24/16 Rx Bactrim Ds Tablet (Sulfamethoxazole/Trimethoprim) 1 Each Tablet 1 Tab PO BID 04/24/[address] CHEST/ABD/PELVIS 1. Minimal ground-glass opacity in the right middle lobe. 2. Emphysema with parenchymal scarring. 3. Minimal distal ileal mural thickening compatible with nonspecific enteritis. 4. Trace amount of free fluid in the deep pelvis. Impression . 1. Febrile syndrome due to ongoing enteritis.This in a patient who is human immunodeficiency virus with last CD4 count of 55. His chest x-ray is consistent with mild focal infiltrate in the right lower lobe. CT chest with only mild infiltrate in RML. Doubt source of fever. Enteritis is probably source of fever. 2. History of human immunodeficiency virus/acquired immune deficiency syndrome with CD4 count of 55 on HAART treatment. 3. History of tobaccoism. 4. History of asthma. Plan . 1. Continue with broad spectrum antibiotic per Infectious Disease recommendation. 2. Continue nebulizer. 3. P.r.n. oxygen. 4. Atovaquone Per ID for PCP prophylaxis. 5. CT chest reviewed. mild RML pneumonitis, doubt source of fever. 6. Follow all cultures/ stool cultures clinically improving JUSTIN KAPLAN MD Oct 15, 2017 19:04
[2017-10-15 23:00] VITALS: BP 124/85
[2017-10-16] MEDS: METOPROLOL TARTRATE 5 MG/5 ML VIAL. IVP SCH ×4 (01:00→18:07)
[2017-10-16] MEDS: IV NORMAL SALINE 1000ML BAG 1,000 ML IV SCH ×3 (01:02→23:32)
[2017-10-16 03:00] VITALS: BP 121/59
[2017-10-16 06:17] LABS: CRYPTOSPORIDIUM EIA Negative (Negative)
[2017-10-16] MEDS: LOPERAMIDE 2 MG CAPSULE PO SCH ×6 (06:19→20:00)
[2017-10-16] MEDS: MEROPENEM IV Push 500 MG VIAL. IVP SCH (06:22)
[2017-10-16 06:27] LABS: BASO % 0 % (0-3); EOS % 0 % (0-3); HEMATOCRIT 32.4 % (39.0-53.0); HEMOGLOBIN 10.8 g/dL (13.0-17.5); LYMPH # 0.2 x10^3/uL (1.0-4.8); LYMPH % 3 % (24-48); MEAN CORPUSCULAR HEMOGLOBIN 31 pg (25-35); MEAN CORPUSCULAR HGB CONC 33 g/dL (31-37); MEAN CORPUSCULAR VOLUME 92 fL (79-100); MONO % 3 % (0-9); NEUT % 94 % (31-73); PLATELET COUNT 57 x10^3/uL (140-400); RED BLOOD COUNT 3.54 x10^6/uL (4.30-5.70); RED CELL DISTRIBUTION WIDTH 14.1 % (11.5-14.5); WHITE BLOOD COUNT 8.4 x10^3/uL (4.0-11.0)
[2017-10-16 06:37] LABS: ALBUMIN 1.3 g/dL (3.4-5.0); ALBUMIN/GLOBULIN RATIO 0.4 (1.0-1.7); CALCIUM 6.9 mg/dL (8.5-10.1); CREATININE 1.2 mg/dL (0.7-1.3); TOTAL BILIRUBIN 0.3 mg/dL (0.2-1.0); TOTAL PROTEIN 4.4 g/dL (6.4-8.2)
[2017-10-16 07:00] VITALS: BP 131/91
[2017-10-16] MEDS: IPRATRPIUM/ALBUTEROL 0.5/2.5MG 3 ML NEBU. NEB SCH ×4 (07:21→19:07)
[2017-10-16] MEDS: ATOVAQUONE 750 MG/5 ML ORAL.SUSP. PO SCH (08:00)
[2017-10-16] MEDS: chlorproMAZINE 25 MG TABLET PO SCH ×3 (09:29→21:00)
[2017-10-16] MEDS: [UNRECOGNIZED DRUG - OTHER] PO SCH (09:30)
[2017-10-16] MEDS: POTASSIUM CHLORIDE 20 MEQ TABLET.ER. PO SCH (09:30)
[2017-10-16] MEDS: AMINO AC 3%/ELECTROLYTE/GLYCER 1,000 ML IV SCH ×2 (09:30→23:32)
[2017-10-16] MEDS: methylPREDNISolone SOD SUCC PF 40 MG/ML VIAL. IV SCH ×2 (09:31→21:00)
[2017-10-16] MEDS: AZITHROMYCIN 500 MG in IV NORMAL SALINE 250ML 250 ML IV SCH (10:30)
[2017-10-16 11:00] VITALS: BP 143/89
--- NOTE | 2017-10-16 11:51 | PDOC ---
PROGRESS NOTES Chief Complaint Chief Complaint Fever, cough, tachycardia, tachypnea on admission, resolved HIV/AIDS on HAART Asthma HCAP History of Present Illness History of Present Illness Patient continues to be weak and tired Patient had difficulty speaking due to weakness Patient expressed desire to be discharged, but encouraged him that he needs to stay a few more days. 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 x 3, no focal neurologic deficit SKIN: rash, with exfoliation, no mucus membrane involvement General: Alert, Oriented X3, Cooperative, No acute distress, Other (cold, multiple blankets on) Heart: Other (TACHY RATE 130) Lungs: Clear Abdomen: Normal bowel sounds, Soft, No tenderness, No hepatosplenomegaly, No masses Extremities: No clubbing, No cyanosis, No edema, Normal pulses, No tenderness/ swelling Skin: Other (flaky dry skin all over the face chest upper extremity) Labs LABS Laboratory Tests Test 10/15/17 12:00 10/15/17 14:00 10/15/17 14:20 10/16/17 06:00 O2 Saturation 96 % (92-99) Arterial Blood pH 7.35 (7.35-7.45) Arterial Blood pCO2 at Patient Temp 37 mmHg (35-46) Arterial Blood pO2 at Patient Temp 97 mmHg (85-108) Arterial Blood HCO3 20 mmol/L (21-28) Arterial Blood Base Excess -5 mmol/L (-3-3) Oxyhemoglobin 95.9 % Methemoglobin 0.2 % (0.0-1.9) Carbon Monoxide, Quantitative 0.3 % (0.0-1.9) FiO2 32% Urine Opiates Screen Pos (NEG) Urine Methadone Screen Neg (NEG) Urine Barbiturates Neg (NEG) Urine Phencyclidine Screen Neg (NEG) Urine Amphetamine/Methamphetamine Neg (NEG) Urine Benzodiazepines Screen Pos (NEG) Urine Cocaine Screen Neg (NEG) Urine Cannabinoids Screen Pos (NEG) Urine Ethyl Alcohol Neg (NEG) Cytomegalovirus IgG Antibody >10.00 U/mL (0.00-0.59) Cytomegalovirus IgM Antibody <30.0 AU/mL (0.0-29.9) White Blood Count 8.4 x10^3/uL (4.0-11.0) Red Blood Count 3.54 x10^6/uL (4.30-5.70) Hemoglobin 10.8 g/dL (13.0-17.5) Hematocrit 32.4 % (39.0-53.0) Mean Corpuscular Volume 92 fL (79-100) Mean Corpuscular Hemoglobin 31 pg (25-35) Mean Corpuscular Hemoglobin Concent 33 g/dL (31-37) Red Cell Distribution Width 14.1 % (11.5-14.5) Platelet Count 57 x10^3/uL (140-400) Neutrophils (%) (Auto) 94 % (31-73) Lymphocytes (%) (Auto) 3 % (24-48) Monocytes (%) (Auto) 3 % (0-9) Eosinophils (%) (Auto) 0 % (0-3) Basophils (%) (Auto) 0 % (0-3) Neutrophils # (Auto) 7.9 x10^3uL (1.8-7.7) Lymphocytes # (Auto) 0.2 x10^3/uL (1.0-4.8) Monocytes # (Auto) 0.2 x10^3/uL (0.0-1.1) Eosinophils # (Auto) 0.0 x10^3/uL (0.0-0.7) Basophils # (Auto) 0.0 x10^3/uL (0.0-0.2) Sodium Level 133 mmol/L (136-145) Potassium Level 5.0 mmol/L (3.5-5.1) Chloride Level 104 mmol/L (98-107) Carbon Dioxide Level 22 mmol/L (21-32) Anion Gap 7 (6-14) Blood Urea Nitrogen 29 mg/dL (8-26) Creatinine 1.2 mg/dL (0.7-1.3) Estimated GFR (Cockcroft-Gault) 86.0 BUN/Creatinine Ratio 24 (6-20) Glucose Level 159 mg/dL (70-99) Calcium Level 6.9 mg/dL (8.5-10.1) Total Bilirubin 0.3 mg/dL (0.2-1.0) Aspartate Amino Transf (AST/SGOT) 50 U/L (15-37) Alanine Aminotransferase (ALT/SGPT) 25 U/L (16-63) Alkaline Phosphatase 59 U/L (46-116) Total Protein 4.4 g/dL (6.4-8.2) Albumin 1.3 g/dL (3.4-5.0) Albumin/Globulin Ratio 0.4 (1.0-1.7) Review of Systems Review of Systems Patient is lethargic Denies abdominal pain Assessment and Plan Assessmemt and Plan Problems Medical Problems: (1) Elevated brain natriuretic peptide (BNP) level Status: Acute (2) HCAP (healthcare-associated pneumonia) Status: Acute (3) HIV (human immunodeficiency virus infection) Status: Acute (4) Immunosuppression Status: Acute (5) Lactic acid acidosis Status: Acute (6) Sepsis Status: Acute Assessment Fever, cough, tachycardia, tachypnea on admission, resolved HIV/AIDS on HAART Asthma HCAP Plan Continue antibiotics Recheck labs PT/OT Continue rectal bag Continue home meds Problems: Comment Review of Relevant I have reviewed the following items nain (where applicable) has been applied. Labs Laboratory Tests Test 10/15/17 12:00 10/15/17 14:00 10/15/17 14:20 10/16/17 06:00 O2 Saturation 96 % (92-99) Arterial Blood pH 7.35 (7.35-7.45) Arterial Blood pCO2 at Patient Temp 37 mmHg (35-46) Arterial Blood pO2 at Patient Temp 97 mmHg (85-108) Arterial Blood HCO3 20 mmol/L (21-28) Arterial Blood Base Excess -5 mmol/L (-3-3) Oxyhemoglobin 95.9 % Methemoglobin 0.2 % (0.0-1.9) Carbon Monoxide, Quantitative 0.3 % (0.0-1.9) FiO2 32% Urine Opiates Screen Pos (NEG) Urine Methadone Screen Neg (NEG) Urine Barbiturates Neg (NEG) Urine Phencyclidine Screen Neg (NEG) Urine Amphetamine/Methamphetamine Neg (NEG) Urine Benzodiazepines Screen Pos (NEG) Urine Cocaine Screen Neg (NEG) Urine Cannabinoids Screen Pos (NEG) Urine Ethyl Alcohol Neg (NEG) Cytomegalovirus IgG Antibody >10.00 U/mL (0.00-0.59) Cytomegalovirus IgM Antibody <30.0 AU/mL (0.0-29.9) White Blood Count 8.4 x10^3/uL (4.0-11.0) Red Blood Count 3.54 x10^6/uL (4.30-5.70) Hemoglobin 10.8 g/dL (13.0-17.5) Hematocrit 32.4 % (39.0-53.0) Mean Corpuscular Volume 92 fL (79-100) Mean Corpuscular Hemoglobin 31 pg (25-35) Mean Corpuscular Hemoglobin Concent 33 g/dL (31-37) Red Cell Distribution Width 14.1 % (11.5-14.5) Platelet Count 57 x10^3/uL (140-400) Neutrophils (%) (Auto) 94 % (31-73) Lymphocytes (%) (Auto) 3 % (24-48) Monocytes (%) (Auto) 3 % (0-9) Eosinophils (%) (Auto) 0 % (0-3) Basophils (%) (Auto) 0 % (0-3) Neutrophils # (Auto) 7.9 x10^3uL (1.8-7.7) Lymphocytes # (Auto) 0.2 x10^3/uL (1.0-4.8) Monocytes # (Auto) 0.2 x10^3/uL (0.0-1.1) Eosinophils # (Auto) 0.0 x10^3/uL (0.0-0.7) Basophils # (Auto) 0.0 x10^3/uL (0.0-0.2) Sodium Level 133 mmol/L (136-145) Potassium Level 5.0 mmol/L (3.5-5.1) Chloride Level 104 mmol/L (98-107) Carbon Dioxide Level 22 mmol/L (21-32) Anion Gap 7 (6-14) Blood Urea Nitrogen 29 mg/dL (8-26) Creatinine 1.2 mg/dL (0.7-1.3) Estimated GFR (Cockcroft-Gault) 86.0 BUN/Creatinine Ratio 24 (6-20) Glucose Level 159 mg/dL (70-99) Calcium Level 6.9 mg/dL (8.5-10.1) Total Bilirubin 0.3 mg/dL (0.2-1.0) Aspartate Amino Transf (AST/SGOT) 50 U/L (15-37) Alanine Aminotransferase (ALT/SGPT) 25 U/L (16-63) Alkaline Phosphatase 59 U/L (46-116) Total Protein 4.4 g/dL (6.4-8.2) Albumin 1.3 g/dL (3.4-5.0) Albumin/Globulin Ratio 0.4 (1.0-1.7) Laboratory Tests Test 10/15/17 12:00 10/15/17 14:00 10/15/17 14:20 10/16/17 06:00 O2 Saturation 96 % (92-99) Arterial Blood pH 7.35 (7.35-7.45) Arterial Blood pCO2 at Patient Temp 37 mmHg (35-46) Arterial Blood pO2 at Patient Temp 97 mmHg (85-108) Arterial Blood HCO3 20 mmol/L (21-28) Arterial Blood Base Excess -5 mmol/L (-3-3) Oxyhemoglobin 95.9 % Methemoglobin 0.2 % (0.0-1.9) Carbon Monoxide, Quantitative 0.3 % (0.0-1.9) FiO2 32% Urine Opiates Screen Pos (NEG) Urine Methadone Screen Neg (NEG) Urine Barbiturates Neg (NEG) Urine Phencyclidine Screen Neg (NEG) Urine Amphetamine/Methamphetamine Neg (NEG) Urine Benzodiazepines Screen Pos (NEG) Urine Cocaine Screen Neg (NEG) Urine Cannabinoids Screen Pos (NEG) Urine Ethyl Alcohol Neg (NEG) Cytomegalovirus IgG Antibody >10.00 U/mL (0.00-0.59) Cytomegalovirus IgM Antibody <30.0 AU/mL (0.0-29.9) White Blood Count 8.4 x10^3/uL (4.0-11.0) Red Blood Count 3.54 x10^6/uL (4.30-5.70) Hemoglobin 10.8 g/dL (13.0-17.5) Hematocrit 32.4 % (39.0-53.0) Mean Corpuscular Volume 92 fL (79-100) Mean Corpuscular Hemoglobin 31 pg (25-35) Mean Corpuscular Hemoglobin Concent 33 g/dL (31-37) Red Cell Distribution Width 14.1 % (11.5-14.5) Platelet Count 57 x10^3/uL (140-400) Neutrophils (%) (Auto) 94 % (31-73) Lymphocytes (%) (Auto) 3 % (24-48) Monocytes (%) (Auto) 3 % (0-9) Eosinophils (%) (Auto) 0 % (0-3) Basophils (%) (Auto) 0 % (0-3) Neutrophils # (Auto) 7.9 x10^3uL (1.8-7.7) Lymphocytes # (Auto) 0.2 x10^3/uL (1.0-4.8) Monocytes # (Auto) 0.2 x10^3/uL (0.0-1.1) Eosinophils # (Auto) 0.0 x10^3/uL (0.0-0.7) Basophils # (Auto) 0.0 x10^3/uL (0.0-0.2) Sodium Level 133 mmol/L (136-145) Potassium Level 5.0 mmol/L (3.5-5.1) Chloride Level 104 mmol/L (98-107) Carbon Dioxide Level 22 mmol/L (21-32) Anion Gap 7 (6-14) Blood Urea Nitrogen 29 mg/dL (8-26) Creatinine 1.2 mg/dL (0.7-1.3) Estimated GFR (Cockcroft-Gault) 86.0 BUN/Creatinine Ratio 24 (6-20) Glucose Level 159 mg/dL (70-99) Calcium Level 6.9 mg/dL (8.5-10.1) Total Bilirubin 0.3 mg/dL (0.2-1.0) Aspartate Amino Transf (AST/SGOT) 50 U/L (15-37) Alanine Aminotransferase (ALT/SGPT) 25 U/L (16-63) Alkaline Phosphatase 59 U/L (46-116) Total Protein 4.4 g/dL (6.4-8.2) Albumin 1.3 g/dL (3.4-5.0) Albumin/Globulin Ratio 0.4 (1.0-1.7) Microbiology 10/11/17 Blood Culture - Preliminary, Resulted NO GROWTH AFTER 4 DAYS 10/12/17 AFB Specimen Processing Tissue - Final, Resulted 10/12/17 Acid Fast Bacilli Culture, Resulted Pending 10/12/17 Gram Stain - Final, Resulted 10/11/17 Throat Culture - Final, Complete 10/11/17 - Final, Complete 10/11/17 Urine Culture - Final, Complete 10/11/17 Urine Culture Result 1 (DAVIAN) - Final, Complete Medications Current Medications Sodium Chloride 1,000 ml @ 1,000 mls/hr 1X ONCE IV Last administered on 10/10 01:22; Start 10/10/17 at 00:45; Stop 10/10/17 at 01:44; Status DC Acetaminophen (Tylenol) 1,000 mg 1X ONCE PO Last administered on 10/10/17 01 :07; Start 10/10/17 at 00:45; Stop 10/10/17 at 00:46; Status DC Vancomycin HCl (Vanco Per Pharmacy) 1 each PRN DAILY PRN MC SEE COMMENTS Last administered on 10/10/17 02:47; Start 10/10/17 at 00:30; Stop 10/10/17 at 10 :16; Status DC Piperacillin Sod/ Tazobactam Sod 3.375 gm/Dextrose 50 ml @ 100 mls/hr 1X ONCE IV ; Start 10/10/17 at 00:30; Stop 10/10/17 at 00:59; Status UNV Piperacillin Sod/ Tazobactam Sod (Zosyn) 3.375 gm 1X ONCE IVP Last administered on 10/10/17 00:51; Start 10/10/17 at 00:30; Stop 10/10/17 at 00 :31; Status DC Vancomycin HCl 1.75 gm/Dextrose/ Sodium Chloride 500 ml @ 250 mls/hr 1X ONCE IV Last administered on 10/10/17 00:51; Start 10/10/17 at 01:00; Stop 10/10 at 02:59; Status DC Azithromycin 500 mg/Sodium Chloride 250 ml @ 250 mls/hr 1X ONCE IV ; Start at 01:15; Stop 10/10/17 at 02:14; Status UNV Atovaquone (Mepron) 750 mg 1X ONCE PO Last administered on 10/10/17 01:57; Start 10/10/17 at 01:30; Stop 10/10/17 at 01:31; Status DC Ondansetron HCl (Zofran) 4 mg PRN Q8HRS PRN IV NAUSEA/VOMITING; Start at 01:15; Stop 10/11/17 at 01:14; Status DC Azithromycin 250 ml @ 250 mls/hr 1X ONCE IV Last administered on 10/10/17 02:02; Start 10/10/17 at 01:30; Stop 10/10/17 at 02:29; Status DC Prednisone (Prednisone) 40 mg 1X ONCE PO Last administered on 10/10/17 01:57 ; Start 10/10/17 at 02:00; Stop 10/10/17 at 02:01; Status DC Sodium Chloride 1,000 ml @ 1,000 mls/hr Q1H IV Last administered on 03:30; Start 10/10/17 at 02:30; Stop 10/10/17 at 04:25; Status DC Sodium Chloride 500 ml @ 1,000 mls/hr PRN Q30MIN PRN IV SEE COMMENTS; Start 10/10/17 at 02:15 Norepinephrine Bitartrate 250 ml @ 0 mls/hr CONT PRN IV SEE I/O RECORD; Start 10/10/17 at 02:15; Stop 10/10/17 at 08:33; Status DC Dobutamine HCl/ Dextrose 250 ml @ 0 mls/hr CONT PRN IV SEE I/O RECORD; Start 10/10/17 at 02:15; Stop 10/10/17 at 08:33; Status DC Vancomycin HCl 1.25 gm/Sodium Chloride 250 ml @ 167 mls/hr Q12H IV ; Start at 13:00; Stop 10/10/17 at 13:00; Status DC Vancomycin HCl 1 each 1X ONCE MC ; Start 10/11/17 at 12:30; Stop 10/11/17 at 12:31; Status Cancel Ibuprofen (Motrin) 600 mg PRN Q6HRS PRN PO INFLAMMATION Last administered on 21:07; Start 10/10/17 at 03:30 Chlorpromazine HCl (Thorazine) 25 mg PRN Q6HRS PRN PO HICCUPS Last administered on 10/10/17 03:41; Start 10/10/17 at 03:30; Stop 10/10/17 at 08 :33; Status DC Acetaminophen/ Hydrocodone Bitart (Lortab 5/325) 1 tab PRN Q6HRS PRN PO PAIN Last administered on 10/13/17 13:42; Start 10/10/17 at 08:15 Acetaminophen/ Hydrocodone Bitart (Lortab 5/325) 1 tab QID PRN PO pain; Start 10/10/17 at 08:15; Status UNV Atovaquone (Mepron) 750 mg BID PO Last administered on 10/11/17 09:00; Start 10/10/17 at 09:00; Stop 10/11/17 at 11:21; Status DC Azithromycin 500 mg/Sodium Chloride 250 ml @ 250 mls/hr Q24H IV Last administered on 10/15/17 09:02; Start 10/10/17 at 09:00 Levofloxacin/ Dextrose 150 ml @ 100 mls/hr Q24H IV Last administered on 09:31; Start 10/10/17 at 09:00 Chlorpromazine HCl (Thorazine) 25 mg TID PO Last administered on 10/16/17 09: 29; Start 10/10/17 at 09:00 Albuterol/ Ipratropium (Duoneb) 3 ml RTQID NEB Last administered on 10/16/17 10:51; Start 10/10/17 at 09:00 Albuterol Sulfate (Ventolin Neb Soln) 2.5 mg PRN Q4HRS PRN NEB SHORTNESS OF BREATH; Start 10/10/17 at 08:45 Guaifenesin (Robitussin Dm) 10 ml PRN Q6HRS PRN PO COUGH Last administered on 10/15/17 05:35; Start 10/10/17 at 08:45 Sodium Chloride 1,000 ml @ 100 mls/hr Q10H IV Last administered on 10/11/17 04:45; Start 10/10/17 at 08:45; Stop 10/11/17 at 15:58; Status DC Iohexol (Omnipaque 240 Mg/ml) 30 ml 1X ONCE PO Last administered on 11:20; Start 10/10/17 at 09:00; Stop 10/10/17 at 09:01; Status DC Iohexol (Omnipaque 300 Mg/ml) 75 ml 1X ONCE IV Last administered on 12:45; Start 10/10/17 at 09:00; Stop 10/10/17 at 09:01; Status DC Info (Do NOT chart on this entry -- for MONITORING) 1 each PRN DAILY PRN MC SEE COMMENTS; Start 10/10/17 at 09:00; Stop 10/12/17 at 08:59; Status DC Nicotine (Nicoderm Cq 21mg) 1 patch PRN DAILY PRN TD SMOKING CESSATION; Start 10/10/17 at 09:30 Acetaminophen (Tylenol) 650 mg PRN Q6HRS PRN PO FEVER Last administered on 17:26; Start 10/10/17 at 16:15 Sodium Chloride 1,920 ml @ 1,920 mls/hr Q1H IV Last administered on 15:29; Start 10/11/17 at 13:29; Stop 10/11/17 at 15:56; Status DC Sodium Chloride 500 ml @ 1,000 mls/hr PRN Q30MIN PRN IV SEE COMMENTS; Start 10/11/17 at 13:30 Sodium Chloride 1,000 ml @ 175 mls/min Q6M IV Last administered on 10/11/17 13:51; Start 10/11/17 at 13:33; Stop 10/11/17 at 16:02; Status DC Norepinephrine Bitartrate 250 ml @ 0 mls/hr CONT PRN IV SEE I/O RECORD; Start 10/11/17 at 13:30; Stop 10/14/17 at 10:15; Status DC Dobutamine HCl/ Dextrose 250 ml @ 0 mls/hr CONT PRN IV SEE I/O RECORD; Start 10/11/17 at 13:30; Stop 10/15/17 at 16:17; Status DC Meropenem 500 mg/ Sodium Chloride 50 ml @ 100 mls/hr Q8HRS IV ; Start at 14:00; Stop 10/11/17 at 14:00; Status DC Meropenem (Merrem) 500 mg Q8HRS IVP Last administered on 10/16/17 06:22; Start 10/11/17 at 14:00 Potassium Chloride (Klor-Con) 40 meq 1X ONCE PO Last administered on 14:56; Start 10/11/17 at 14:30; Stop 10/11/17 at 14:34; Status DC Sodium Chloride 1,000 ml @ 100 mls/hr Q10H IV Last administered on 10/16/17 01:02; Start 10/11/17 at 16:15 Methylprednisolone Sodium Succinate (SOLU-Medrol 40MG VIAL) 40 mg Q12HR IV Last administered on 10/16/17 09:31; Start 10/12/17 at 09:00 Atovaquone (Mepron) 750 mg [id number] PO Last administered on 10/15/17 09:04 ; Start 10/12/17 at 08:00 Ondansetron HCl (Zofran) 4 mg PRN Q6HRS PRN IV NAUSEA/VOMITING Last administered on 10/13/17 09:26; Start 10/12/17 at 09:00 Potassium Chloride (Klor-Con) 40 meq 1X ONCE PO Last administered on 10:01; Start 10/12/17 at 09:30; Stop 10/12/17 at 09:31; Status DC Potassium Chloride (Klor-Con) 40 meq DAILYWBKFT PO Last administered on 09:30; Start 10/13/17 at 08:00 Metoprolol Tartrate (Lopressor Vial) 5 mg Q6HRS IVP Last administered on 06:21; Start 10/12/17 at 09:30 Alprazolam (Xanax) 0.25 mg PRN Q6HRS PRN PO ANXIETY / AGITATION Last administered on 10/14/17 05:39; Start 10/12/17 at 18:00; Stop 10/14/17 at 22 :00; Status DC Amino Acids/ Glycerin/ Electrolytes 1,000 ml @ 80 mls/hr [id number] IV Last administered on 10/15/17 22:33; Start 10/12/17 at 18:00 Magnesium Sulfate/ Dextrose 100 ml @ 25 mls/hr 1X ONCE IV Last administered on 10/13/17 09:30; Start 10/13/17 at 09:00; Stop 10/13/17 at 12:59; Status DC Albuterol/ Ipratropium (Duoneb) 3 ml RTQID NEB ; Start 10/14/17 at 12:00; Status UNV Loperamide HCl (Imodium) 2 mg Q4HRS PO Last administered on 10/16/17 09:30; Start 10/14/17 at 12:00 Micafungin Sodium 100 mg/Sodium Chloride 100 ml @ 100 mls/hr Q24H IV Last administered on 10/15/17 13:17; Start 10/14/17 at 15:00 Diphenhydramine HCl (Benadryl) 50 mg PRN Q6HRS PRN IVP ITCHING Last administered on 10/15/17 02:08; Start 10/14/17 at 17:45 Alprazolam (Xanax) 1 mg PRN Q6HRS PRN PO ANXIETY / AGITATION Last administered on 10/15/17 05:35; Start 10/14/17 at 22:00 Multi-Ingred Cream/Lotion/Oil/ Oint (Hydrocerin Cream) 1 frannie PRN Q1HR PRN TP DRY SKIN / SCALING Last administered on 10/14/17 23:38; Start 10/14/17 at 22: 00 Acetaminophen/ Hydrocodone Bitart (Lortab 10/325) 1 tab PRN Q6HRS PRN PO PAIN Last administered on 10/15/17 05:35; Start 10/14/17 at 22:00 Oxycodone HCl (Roxicodone) 15 mg PRN Q6HRS PRN PO PAIN Last administered on 02:09; Start 10/14/17 at 22:00 Active Scripts Active Glen 5-325 Tablet (Acetaminophen/Hydrocodone Bitart) 1 Each Tablet 1 Tab PO Q4- 6HRS Bactrim Ds Tablet (Sulfamethoxazole/Trimethoprim) 1 Each Tablet 1 Tab PO BID Bactrim Ds Tablet (Sulfamethoxazole/Trimethoprim) 1 Each Tablet 1 Tab PO BID Reported Oxycodone Hcl 15 Mg Tablet 15 Mg PO PRN TID PRN Ibuprofen 800 Mg Tablet 800 Mg PO PRN Q6HRS PRN Xanax (Alprazolam) 2 Mg Tablet 2 Mg PO PRN TID PRN Hydrocodone-Apap 10-325 (Hydrocodone Bit/Acetaminophen) 1 Each Tablet 1 Tab PO PRN Q6HRS PRN Vitals/I & O Vital Sign - Last 24 Hours 10/15/17 10/15/17 10/15/17 10/15/17 15:00 16:23 16:39 19:00 Temp 97.7 97.9 97.7 97.9 Pulse 74 74 84 Resp 18 18 B/P (MAP) 136/85 (102) 136/85 150/62 (91) Pulse Ox 93 93 O2 Delivery Nasal Cannula Nasal Cannula Nasal Cannula O2 Flow Rate 2.0 2.0 10/15/17 10/15/17 10/15/17 10/16/17 20:09 21:28 23:00 01:00 Temp 97.9 97.9 Pulse 81 81 Resp 18 B/P (MAP) 124/85 (98) 124/85 Pulse Ox 94 O2 Delivery Nasal Cannula Nasal Cannula Nasal Cannula O2 Flow Rate 2.0 2.0 2.0 10/16/17 10/16/17 10/16/17 10/16/17 03:00 06:21 07:00 07:22 Temp 97.9 99.1 97.9 99.1 Pulse 70 70 84 Resp 18 22 B/P (MAP) 121/59 (79) 121/59 131/91 (104) Pulse Ox 92 92 O2 Delivery Nasal Cannula Nasal Cannula Nasal Cannula O2 Flow Rate 2.0 2.0 2.0 10/16/17 10:53 O2 Delivery Nasal Cannula O2 Flow Rate 2.0 Intake and Output 10/15/17 10/15/17 10/16/17 15:00 23:00 07:00 Intake Total 2300 ml 720 ml 120 ml Output Total 500 ml 50 ml Balance 2300 ml 220 ml 70 ml VIVIANA FARIAL K III DO Oct 16, 2017 11:51
--- NOTE | 2017-10-16 11:54 | PDOC ---
Infectious Disease Note Subjective Subjective pt says feels better, wanting to go home less sob and cough No fevers or chills off O2 no headache skin is improving ROS ROS gen sleepy but arousable heent headache improved derm sores improving gi neg gu neg resp sob,cough but improved Vital Sign Vital Signs Vital Signs Date Time Temp Pulse Resp B/P (MAP) Pulse Ox O2 Delivery O2 Flow Rate FiO2 10/16/17 10:53 Nasal Cannula 2.0 10/16/17 07:00 99.1 84 22 131/91 (104) 92 99.1 Physical Exam PHYSICAL EXAM GENERAL: NAD, awake alert HEENT: eyelid swelling present,no petechiae, no thrush NECK: Supple, no JVD, no LN LUNGS: dec bs in bases, no wheezing HEART: S1S2, no gallop, no murmur ABD: Soft, NT, no organomegaly, no rebound EXT: trace edema, no cyanosis 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, oriented x 3, no focal neurologic deficit SKIN: dermatitis improving IV: ok Labs Lab Laboratory Tests Test 10/15/17 12:00 10/15/17 14:00 10/15/17 14:20 10/16/17 06:00 O2 Saturation 96 % (92-99) Arterial Blood pH 7.35 (7.35-7.45) Arterial Blood pCO2 at Patient Temp 37 mmHg (35-46) Arterial Blood pO2 at Patient Temp 97 mmHg (85-108) Arterial Blood HCO3 20 mmol/L (21-28) Arterial Blood Base Excess -5 mmol/L (-3-3) Oxyhemoglobin 95.9 % Methemoglobin 0.2 % (0.0-1.9) Carbon Monoxide, Quantitative 0.3 % (0.0-1.9) FiO2 32% Urine Opiates Screen Pos (NEG) Urine Methadone Screen Neg (NEG) Urine Barbiturates Neg (NEG) Urine Phencyclidine Screen Neg (NEG) Urine Amphetamine/Methamphetamine Neg (NEG) Urine Benzodiazepines Screen Pos (NEG) Urine Cocaine Screen Neg (NEG) Urine Cannabinoids Screen Pos (NEG) Urine Ethyl Alcohol Neg (NEG) Cytomegalovirus IgG Antibody >10.00 U/mL (0.00-0.59) Cytomegalovirus IgM Antibody <30.0 AU/mL (0.0-29.9) White Blood Count 8.4 x10^3/uL (4.0-11.0) Red Blood Count 3.54 x10^6/uL (4.30-5.70) Hemoglobin 10.8 g/dL (13.0-17.5) Hematocrit 32.4 % (39.0-53.0) Mean Corpuscular Volume 92 fL (79-100) Mean Corpuscular Hemoglobin 31 pg (25-35) Mean Corpuscular Hemoglobin Concent 33 g/dL (31-37) Red Cell Distribution Width 14.1 % (11.5-14.5) Platelet Count 57 x10^3/uL (140-400) Neutrophils (%) (Auto) 94 % (31-73) Lymphocytes (%) (Auto) 3 % (24-48) Monocytes (%) (Auto) 3 % (0-9) Eosinophils (%) (Auto) 0 % (0-3) Basophils (%) (Auto) 0 % (0-3) Neutrophils # (Auto) 7.9 x10^3uL (1.8-7.7) Lymphocytes # (Auto) 0.2 x10^3/uL (1.0-4.8) Monocytes # (Auto) 0.2 x10^3/uL (0.0-1.1) Eosinophils # (Auto) 0.0 x10^3/uL (0.0-0.7) Basophils # (Auto) 0.0 x10^3/uL (0.0-0.2) Sodium Level 133 mmol/L (136-145) Potassium Level 5.0 mmol/L (3.5-5.1) Chloride Level 104 mmol/L (98-107) Carbon Dioxide Level 22 mmol/L (21-32) Anion Gap 7 (6-14) Blood Urea Nitrogen 29 mg/dL (8-26) Creatinine 1.2 mg/dL (0.7-1.3) Estimated GFR (Cockcroft-Gault) 86.0 BUN/Creatinine Ratio 24 (6-20) Glucose Level 159 mg/dL (70-99) Calcium Level 6.9 mg/dL (8.5-10.1) Total Bilirubin 0.3 mg/dL (0.2-1.0) Aspartate Amino Transf (AST/SGOT) 50 U/L (15-37) Alanine Aminotransferase (ALT/SGPT) 25 U/L (16-63) Alkaline Phosphatase 59 U/L (46-116) Total Protein 4.4 g/dL (6.4-8.2) Albumin 1.3 g/dL (3.4-5.0) Albumin/Globulin Ratio 0.4 (1.0-1.7) Micro reviewed Objective Assessment AIDS usually F/U [facility] ID Dr Vázquez,recent dc from [facility], CD4 at [facility] 55, VL > 2000 admitted with Fever now resolved,bc neg, AMS CT head negative now resolved Exfoliative dermatitis,,, drug , ? had rash before Mepron started here but he did have at [facility],, ? vanco with exfoliation ,had rocephin, azithromycin, levaquin, pentamidine per notes at [facility] Recent pneumonia s/p bronch at [facility] neg c/s per record review ,tx with rocephin, azithromycin, pentamidine , dc home on levaquin and pt returned for admission here CT chest, abdomen pelvis reviewed no acute changes h/o Non compliance with meds Diarrhea, c. diff PCR neg, stool afb stain neg, stool c/s neg Ileitis resolved stool studies neg,CMV PCR pending Thrombocytopenia chronic Plan Plan of Care Continue empiric Levaquin,azithromycin DC Merrem and micafungin continue Genvoya Fever improving though pt is sick and complicated history with multiple hosp recently at [facility],F/U [facility] f/u C/S and serologies local skin care CT head neg for acute process await c/s data from [facility] Maintain aspiration precautions FU serologies and c/s If DC Home can dc on empiric levaquin mepron and azithromycin once weekly for OI px, Pt says will f/u with [facility] ID clinic LYNNETTE KO MD Oct 16, 2017 11:54
--- NOTE | 2017-10-16 14:19 | PDOC ---
PULMONARY PROGRESS NOTES Subjective PT WEAK Vitals Vital Signs Date Time Temp Pulse Resp B/P (MAP) Pulse Ox O2 Delivery O2 Flow Rate FiO2 10/16/17 12:00 84 131/91 10/16/17 11:00 98.9 22 95 98.9 10/16/17 10:53 Nasal Cannula 2.0 ROS: No Nausea, No Chest Pain, No Abdominal Pain, No Increase Cough General: Alert, No acute distress Lungs: Clear Cardiovascular: S1, S2 Abdomen: Soft Neuro Exam: Alert Extremities: No Edema Skin: Warm, Other (exfoliation ) Labs Laboratory Tests Test 10/15/17 12:00 10/15/17 14:00 10/15/17 14:20 10/16/17 06:00 O2 Saturation 96 % (92-99) Arterial Blood pH 7.35 (7.35-7.45) Arterial Blood pCO2 at Patient Temp 37 mmHg (35-46) Arterial Blood pO2 at Patient Temp 97 mmHg (85-108) Arterial Blood HCO3 20 mmol/L (21-28) Arterial Blood Base Excess -5 mmol/L (-3-3) Oxyhemoglobin 95.9 % Methemoglobin 0.2 % (0.0-1.9) Carbon Monoxide, Quantitative 0.3 % (0.0-1.9) FiO2 32% Urine Opiates Screen Pos (NEG) Urine Methadone Screen Neg (NEG) Urine Barbiturates Neg (NEG) Urine Phencyclidine Screen Neg (NEG) Urine Amphetamine/Methamphetamine Neg (NEG) Urine Benzodiazepines Screen Pos (NEG) Urine Cocaine Screen Neg (NEG) Urine Cannabinoids Screen Pos (NEG) Urine Ethyl Alcohol Neg (NEG) Cytomegalovirus IgG Antibody >10.00 U/mL (0.00-0.59) Cytomegalovirus IgM Antibody <30.0 AU/mL (0.0-29.9) White Blood Count 8.4 x10^3/uL (4.0-11.0) Red Blood Count 3.54 x10^6/uL (4.30-5.70) Hemoglobin 10.8 g/dL (13.0-17.5) Hematocrit 32.4 % (39.0-53.0) Mean Corpuscular Volume 92 fL (79-100) Mean Corpuscular Hemoglobin 31 pg (25-35) Mean Corpuscular Hemoglobin Concent 33 g/dL (31-37) Red Cell Distribution Width 14.1 % (11.5-14.5) Platelet Count 57 x10^3/uL (140-400) Neutrophils (%) (Auto) 94 % (31-73) Lymphocytes (%) (Auto) 3 % (24-48) Monocytes (%) (Auto) 3 % (0-9) Eosinophils (%) (Auto) 0 % (0-3) Basophils (%) (Auto) 0 % (0-3) Neutrophils # (Auto) 7.9 x10^3uL (1.8-7.7) Lymphocytes # (Auto) 0.2 x10^3/uL (1.0-4.8) Monocytes # (Auto) 0.2 x10^3/uL (0.0-1.1) Eosinophils # (Auto) 0.0 x10^3/uL (0.0-0.7) Basophils # (Auto) 0.0 x10^3/uL (0.0-0.2) Sodium Level 133 mmol/L (136-145) Potassium Level 5.0 mmol/L (3.5-5.1) Chloride Level 104 mmol/L (98-107) Carbon Dioxide Level 22 mmol/L (21-32) Anion Gap 7 (6-14) Blood Urea Nitrogen 29 mg/dL (8-26) Creatinine 1.2 mg/dL (0.7-1.3) Estimated GFR (Cockcroft-Gault) 86.0 BUN/Creatinine Ratio 24 (6-20) Glucose Level 159 mg/dL (70-99) Calcium Level 6.9 mg/dL (8.5-10.1) Total Bilirubin 0.3 mg/dL (0.2-1.0) Aspartate Amino Transf (AST/SGOT) 50 U/L (15-37) Alanine Aminotransferase (ALT/SGPT) 25 U/L (16-63) Alkaline Phosphatase 59 U/L (46-116) Total Protein 4.4 g/dL (6.4-8.2) Albumin 1.3 g/dL (3.4-5.0) Albumin/Globulin Ratio 0.4 (1.0-1.7) Laboratory Tests Test 10/15/17 14:20 10/16/17 06:00 Cytomegalovirus IgG Antibody >10.00 U/mL (0.00-0.59) Cytomegalovirus IgM Antibody <30.0 AU/mL (0.0-29.9) White Blood Count 8.4 x10^3/uL (4.0-11.0) Red Blood Count 3.54 x10^6/uL (4.30-5.70) Hemoglobin 10.8 g/dL (13.0-17.5) Hematocrit 32.4 % (39.0-53.0) Mean Corpuscular Volume 92 fL (79-100) Mean Corpuscular Hemoglobin 31 pg (25-35) Mean Corpuscular Hemoglobin Concent 33 g/dL (31-37) Red Cell Distribution Width 14.1 % (11.5-14.5) Platelet Count 57 x10^3/uL (140-400) Neutrophils (%) (Auto) 94 % (31-73) Lymphocytes (%) (Auto) 3 % (24-48) Monocytes (%) (Auto) 3 % (0-9) Eosinophils (%) (Auto) 0 % (0-3) Basophils (%) (Auto) 0 % (0-3) Neutrophils # (Auto) 7.9 x10^3uL (1.8-7.7) Lymphocytes # (Auto) 0.2 x10^3/uL (1.0-4.8) Monocytes # (Auto) 0.2 x10^3/uL (0.0-1.1) Eosinophils # (Auto) 0.0 x10^3/uL (0.0-0.7) Basophils # (Auto) 0.0 x10^3/uL (0.0-0.2) Sodium Level 133 mmol/L (136-145) Potassium Level 5.0 mmol/L (3.5-5.1) Chloride Level 104 mmol/L (98-107) Carbon Dioxide Level 22 mmol/L (21-32) Anion Gap 7 (6-14) Blood Urea Nitrogen 29 mg/dL (8-26) Creatinine 1.2 mg/dL (0.7-1.3) Estimated GFR (Cockcroft-Gault) 86.0 BUN/Creatinine Ratio 24 (6-20) Glucose Level 159 mg/dL (70-99) Calcium Level 6.9 mg/dL (8.5-10.1) Total Bilirubin 0.3 mg/dL (0.2-1.0) Aspartate Amino Transf (AST/SGOT) 50 U/L (15-37) Alanine Aminotransferase (ALT/SGPT) 25 U/L (16-63) Alkaline Phosphatase 59 U/L (46-116) Total Protein 4.4 g/dL (6.4-8.2) Albumin 1.3 g/dL (3.4-5.0) Albumin/Globulin Ratio 0.4 (1.0-1.7) Medications Active Scripts Medications Dose Route/Sig Max Daily Dose Days Date Category [facility] 5-325 Tablet (Acetaminophen/Hydrocodone Bitart) 1 Each Tablet 1 Tab PO Q4-6HRS 08/11/17 Rx Bactrim Ds Tablet (Sulfamethoxazole/Trimethoprim) 1 Each Tablet 1 Tab PO BID 08/11/17 Rx [facility] 5-325 Tablet (Acetaminophen/Hydrocodone Bitart) 1 Each Tablet 1 Tab PO PRN Q6HRS PRN 04/24/16 Rx Bactrim Ds Tablet (Sulfamethoxazole/Trimethoprim) 1 Each Tablet 1 Tab PO BID 04/24/[address] CHEST/ABD/PELVIS 1. Minimal ground-glass opacity in the right middle lobe. 2. Emphysema with parenchymal scarring. 3. Minimal distal ileal mural thickening compatible with nonspecific enteritis. 4. Trace amount of free fluid in the deep pelvis. Impression . 1. Febrile/HIV PER ID 2. History of human immunodeficiency virus/acquired immune deficiency syndrome with CD4 count of 55 on HAART treatment. 3. History of tobaccoism. 4. History of asthma. 5, PNEUMONIA Plan . 1. ANTIBX PER ID 2. Continue nebulizer. 3. LTAC EVAL 4. Atovaquone Per ID for PCP prophylaxis. 5. CT chest reviewed. mild RML pneumonitis KYLER HART MD Oct 16, 2017 14:19
[2017-10-16 15:00] VITALS: BP 148/86
--- NOTE | 2017-10-16 17:28 | PDOC2 ---
PALLIATIVE CARE Palliative Care Note Palliative Care Patient wants to go home. More alert than yesterday---talks with eyes closed. Encouraged patient to continue taking medication. Follow recommendation--may need LTAC for continued care. Discussed POA. Patient would like his grandmother/Ethelyne to be his Power of [employer]. Spoke with Ashish LAURA who will assist with completion of document (when patient is alert and able to complete ) OCTAVIA VICTOR Oct 16, 2017 17:28
[2017-10-16 19:00] VITALS: BP 140/92
[2017-10-16] MEDS: ALPRAZolam 1 MG TABLET PO PRN (21:00)
[2017-10-16] MEDS: guaiFENesin DM 200MG/20MG 10 ML SYRUP PO PRN (21:08)
[2017-10-16 23:00] VITALS: BP 138/94
[2017-10-16] MEDS: HYDROcodone/APAP 10/325 1 TAB TABLET PO PRN (23:33)
[2017-10-17] MEDS: METOPROLOL TARTRATE 5 MG/5 ML VIAL. IVP SCH ×5 (00:17→23:32)
[2017-10-17] MEDS: MINERAL OIL/PETROLATUM TOPICAL CREAM 113GM JAR. TP PRN (02:00)
[2017-10-17 03:00] VITALS: BP 135/91
[2017-10-17] MEDS: LOPERAMIDE 2 MG CAPSULE PO SCH ×7 (04:00→23:36)
[2017-10-17 05:34] LABS: BASO % 0 % (0-3); EOS % 0 % (0-3); HEMATOCRIT 33.5 % (39.0-53.0); LYMPH # 0.2 x10^3/uL (1.0-4.8); LYMPH % 3 % (24-48); MEAN CORPUSCULAR HEMOGLOBIN 30 pg (25-35); MEAN CORPUSCULAR HGB CONC 33 g/dL (31-37); MEAN CORPUSCULAR VOLUME 92 fL (79-100); MONO % 4 % (0-9); NEUT % 93 % (31-73); PLATELET COUNT 78 x10^3/uL (140-400); RED BLOOD COUNT 3.65 x10^6/uL (4.30-5.70); RED CELL DISTRIBUTION WIDTH 13.9 % (11.5-14.5); WHITE BLOOD COUNT 7.7 x10^3/uL (4.0-11.0)
[2017-10-17 05:35] LABS: CALCIUM 7.1 mg/dL (8.5-10.1); CREATININE 1.1 mg/dL (0.7-1.3); GFR 95.1
[2017-10-17 05:37] LABS: POTASSIUM 5.2 mmol/L (3.5-5.1)
[2017-10-17] MEDS: ALPRAZolam 1 MG TABLET PO PRN ×2 (05:44→21:06)
[2017-10-17 07:00] VITALS: BP 122/84
[2017-10-17] MEDS: IPRATRPIUM/ALBUTEROL 0.5/2.5MG 3 ML NEBU. NEB SCH ×4 (07:25→20:56)
[2017-10-17] MEDS: POTASSIUM CHLORIDE 20 MEQ TABLET.ER. PO SCH (08:00)
[2017-10-17] MEDS: oxyCODONE IR 5 MG TABLET PO PRN (08:20)
[2017-10-17] MEDS: ATOVAQUONE 750 MG/5 ML ORAL.SUSP. PO SCH (08:21)
[2017-10-17] MEDS: chlorproMAZINE 25 MG TABLET PO SCH ×3 (08:21→21:06)
[2017-10-17] MEDS: methylPREDNISolone SOD SUCC PF 40 MG/ML VIAL. IV SCH ×2 (08:22→21:06)
[2017-10-17] MEDS: [UNRECOGNIZED DRUG - OTHER] PO SCH (08:22)
[2017-10-17 08:48] LABS: % EOS 1 % (0-5)
[2017-10-17] MEDS: IV NORMAL SALINE 1000ML BAG 1,000 ML IV SCH ×2 (08:48→21:19)
[2017-10-17 08:49] LABS: PLT ESTIMATE DECREASED (ADEQUATE)
[2017-10-17] MEDS ORDERED: AZITHROMYCIN 250 MG TABLET. PO SCH (09:00)
[2017-10-17] MEDS: AMINO AC 3%/ELECTROLYTE/GLYCER 1,000 ML IV SCH ×2 (10:30→18:24)
[2017-10-17 11:00] VITALS: BP 131/91
--- NOTE | 2017-10-17 11:02 | PDOC ---
Infectious Disease Note Subjective Subjective pt says feels better, wanting to go home less sob and cough No fevers or chills off O2 no headache skin is improving no diarrhea, abdo pain, n/v has swelling of both lower ext ,requesting lasix ROS ROS ROS heent headache improved derm rash resolving gi neg gu neg resp sob,cough improved Vital Sign Vital Signs Vital Signs Date Time Temp Pulse Resp B/P (MAP) Pulse Ox O2 Delivery O2 Flow Rate FiO2 10/17/17 07:27 94 Nasal Cannula 2.0 10/17/17 07:00 96.4 75 19 122/84 (97) 96.4 Physical Exam PHYSICAL EXAM GENERAL:axox3 male in nad HEENT: eyelid swelling resolved, no petechiae, no thrush NECK: Supple, no JVD, no LN LUNGS: dec bs in bases, no wheezing HEART: S1S2, no gallop, no murmur ABD: Soft, NT, no organomegaly, no rebound EXT:+ edema, no cyanosis UNIT EDUCATOR: Alert, oriented x 3, no focal neurologic deficit SKIN: dermatitis improving, no sec infection MSK neg for dec in rom or effusion IV: ok Labs Lab Laboratory Tests Test 10/17/17 04:45 White Blood Count 7.7 x10^3/uL (4.0-11.0) Red Blood Count 3.65 x10^6/uL (4.30-5.70) Hemoglobin 11.0 g/dL (13.0-17.5) Hematocrit 33.5 % (39.0-53.0) Mean Corpuscular Volume 92 fL (79-100) Mean Corpuscular Hemoglobin 30 pg (25-35) Mean Corpuscular Hemoglobin Concent 33 g/dL (31-37) Red Cell Distribution Width 13.9 % (11.5-14.5) Platelet Count 78 x10^3/uL (140-400) Neutrophils (%) (Auto) 93 % (31-73) Lymphocytes (%) (Auto) 3 % (24-48) Monocytes (%) (Auto) 4 % (0-9) Eosinophils (%) (Auto) 0 % (0-3) Basophils (%) (Auto) 0 % (0-3) Neutrophils # (Auto) 7.1 x10^3uL (1.8-7.7) Lymphocytes # (Auto) 0.2 x10^3/uL (1.0-4.8) Monocytes # (Auto) 0.3 x10^3/uL (0.0-1.1) Eosinophils # (Auto) 0.0 x10^3/uL (0.0-0.7) Basophils # (Auto) 0.0 x10^3/uL (0.0-0.2) Segmented Neutrophils % 82 % (35-66) Band Neutrophils % 7 % (0-9) Lymphocytes % 6 % (24-48) Monocytes % 4 % (0-10) Eosinophils % 1 % (0-5) Platelet Estimate Decreased (ADEQUATE) Sodium Level 132 mmol/L (136-145) Potassium Level 5.2 mmol/L (3.5-5.1) Chloride Level 102 mmol/L (98-107) Carbon Dioxide Level 24 mmol/L (21-32) Anion Gap 6 (6-14) Blood Urea Nitrogen 28 mg/dL (8-26) Creatinine 1.1 mg/dL (0.7-1.3) Estimated GFR (Cockcroft-Gault) 95.1 Glucose Level 157 mg/dL (70-99) Calcium Level 7.1 mg/dL (8.5-10.1) Micro stool neg afb neg bc neg throat nrf Objective Assessment AIDS F/U [facility] ID Dr Vázquez,[facility], [facility]4 at [facility], admitted with Fever resolved,bc neg, AMS CT head negative resolved Exfoliative dermatitis,,, drug , ? had rash before Mepron started here but he did have at [facility] admitted with exfoliation ,had rocephin, azithromycin, levaquin, pentamidine per notes at [facility] Recent pneumonia s/p bronch at [facility] neg c/s per record review ,tx with rocephin, azithromycin, pentamidine , dc home on levaquin and pt returned for admission here CT chest, abdomen pelvis reviewed no acute changes h/o Non compliance with meds Diarrhea, c. diff PCR neg, stool afb stain neg, stool c/s neg Ileitis resolved stool studies neg,CMV PCR pending Thrombocytopenia chronic Plan Plan of Care Continue empiric Levaquin for 5 more days , continue OI px with weekly azithromycin 1200mg and mepron qdaily continue Genvoya ,complaince with meds discussed. says will take as directed f/u C/S and serologies local skin care OK to dc home from ID standpoint says will f/u with Dr Vázquez at ID within 7-10 days D/W Mother LYNNETTE KO MD Oct 17, 2017 11:02
--- NOTE | 2017-10-17 14:35 | PDOC ---
PROGRESS NOTES Chief Complaint Chief Complaint Fever, cough, tachycardia, tachypnea on admission, resolved HIV/AIDS on HAART Asthma HCAP History of Present Illness History of Present Illness Patient continues to be weak and tired Patient had difficulty speaking due to weakness Patient continues to express desire to be discharged. Told him he needs to stay at least 1 more day and possible DC tomorrow Discussed with mother and grandmother Discussed with nurse Vitals Vitals Vital Signs Date Time Temp Pulse Resp B/P (MAP) Pulse Ox O2 Delivery O2 Flow Rate FiO2 10/17/17 11:04 Nasal Cannula 2.0 10/17/17 11:00 98.2 90 18 131/91 (104) 91 98.2 Physical Exam Physical Exam NECK: Supple, no JVD, no LN LUNGS: Clear RR =30 HEART: S1S2, no gallop, no murmur ABD: Soft, NT, no organomegaly, no rebound EXT: No edema, no cyanosis RIBBON TIER: Alert, oriented x 3, no focal neurologic deficit SKIN: rash, with exfoliation, no mucus membrane involvement General: Alert, Oriented X3, Cooperative, No acute distress, Other (cold, multiple blankets on) Heart: Other (TACHY RATE 130) Lungs: Clear Abdomen: Normal bowel sounds, Soft, No tenderness, No hepatosplenomegaly, No masses Extremities: No clubbing, No cyanosis, No edema, Normal pulses, No tenderness/ swelling Skin: Other (flaky dry skin all over the face chest upper extremity) Labs LABS Laboratory Tests Test 10/17/17 04:45 White Blood Count 7.7 x10^3/uL (4.0-11.0) Red Blood Count 3.65 x10^6/uL (4.30-5.70) Hemoglobin 11.0 g/dL (13.0-17.5) Hematocrit 33.5 % (39.0-53.0) Mean Corpuscular Volume 92 fL (79-100) Mean Corpuscular Hemoglobin 30 pg (25-35) Mean Corpuscular Hemoglobin Concent 33 g/dL (31-37) Red Cell Distribution Width 13.9 % (11.5-14.5) Platelet Count 78 x10^3/uL (140-400) Neutrophils (%) (Auto) 93 % (31-73) Lymphocytes (%) (Auto) 3 % (24-48) Monocytes (%) (Auto) 4 % (0-9) Eosinophils (%) (Auto) 0 % (0-3) Basophils (%) (Auto) 0 % (0-3) Neutrophils # (Auto) 7.1 x10^3uL (1.8-7.7) Lymphocytes # (Auto) 0.2 x10^3/uL (1.0-4.8) Monocytes # (Auto) 0.3 x10^3/uL (0.0-1.1) Eosinophils # (Auto) 0.0 x10^3/uL (0.0-0.7) Basophils # (Auto) 0.0 x10^3/uL (0.0-0.2) Segmented Neutrophils % 82 % (35-66) Band Neutrophils % 7 % (0-9) Lymphocytes % 6 % (24-48) Monocytes % 4 % (0-10) Eosinophils % 1 % (0-5) Platelet Estimate Decreased (ADEQUATE) Sodium Level 132 mmol/L (136-145) Potassium Level 5.2 mmol/L (3.5-5.1) Chloride Level 102 mmol/L (98-107) Carbon Dioxide Level 24 mmol/L (21-32) Anion Gap 6 (6-14) Blood Urea Nitrogen 28 mg/dL (8-26) Creatinine 1.1 mg/dL (0.7-1.3) Estimated GFR (Cockcroft-Gault) 95.1 Glucose Level 157 mg/dL (70-99) Calcium Level 7.1 mg/dL (8.5-10.1) Review of Systems Review of Systems Complains of rash bilaterally on legs Complains of edema in legs Assessment and Plan Assessmemt and Plan Problems Medical Problems: (1) Elevated brain natriuretic peptide (BNP) level Status: Acute (2) HCAP (healthcare-associated pneumonia) Status: Acute (3) HIV (human immunodeficiency virus infection) Status: Acute (4) Immunosuppression Status: Acute (5) Lactic acid acidosis Status: Acute (6) Sepsis Status: Acute Assessment Fever, cough, tachycardia, tachypnea on admission, resolved HIV/AIDS on HAART Asthma HCAP Plan Continue antibiotics Remove rectal tube Continue O2 cannula Continue PT/OT Appreciate subspecialty input Problems: Comment Review of Relevant I have reviewed the following items nain (where applicable) has been applied. Labs Laboratory Tests Test 10/16/17 06:00 12/20/17 04:45 White Blood Count 8.4 x10^3/uL (4.0-11.0) 7.7 x10^3/uL (4.0-11.0) Red Blood Count 3.54 x10^6/uL (4.30-5.70) 3.65 x10^6/uL (4.30-5.70) Hemoglobin 10.8 g/dL (13.0-17.5) 11.0 g/dL (13.0-17.5) Hematocrit 32.4 % (39.0-53.0) 33.5 % (39.0-53.0) Mean Corpuscular Volume 92 fL (79-100) 92 fL (79-100) Mean Corpuscular Hemoglobin 31 pg (25-35) 30 pg (25-35) Mean Corpuscular Hemoglobin Concent 33 g/dL (31-37) 33 g/dL (31-37) Red Cell Distribution Width 14.1 % (11.5-14.5) 13.9 % (11.5-14.5) Platelet Count 57 x10^3/uL (140-400) 78 x10^3/uL (140-400) Neutrophils (%) (Auto) 94 % (31-73) 93 % (31-73) Lymphocytes (%) (Auto) 3 % (24-48) 3 % (24-48) Monocytes (%) (Auto) 3 % (0-9) 4 % (0-9) Eosinophils (%) (Auto) 0 % (0-3) 0 % (0-3) Basophils (%) (Auto) 0 % (0-3) 0 % (0-3) Neutrophils # (Auto) 7.9 x10^3uL (1.8-7.7) 7.1 x10^3uL (1.8-7.7) Lymphocytes # (Auto) 0.2 x10^3/uL (1.0-4.8) 0.2 x10^3/uL (1.0-4.8) Monocytes # (Auto) 0.2 x10^3/uL (0.0-1.1) 0.3 x10^3/uL (0.0-1.1) Eosinophils # (Auto) 0.0 x10^3/uL (0.0-0.7) 0.0 x10^3/uL (0.0-0.7) Basophils # (Auto) 0.0 x10^3/uL (0.0-0.2) 0.0 x10^3/uL (0.0-0.2) Sodium Level 133 mmol/L (136-145) 132 mmol/L (136-145) Potassium Level 5.0 mmol/L (3.5-5.1) 5.2 mmol/L (3.5-5.1) Chloride Level 104 mmol/L (98-107) 102 mmol/L (98-107) Carbon Dioxide Level 22 mmol/L (21-32) 24 mmol/L (21-32) Anion Gap 7 (6-14) 6 (6-14) Blood Urea Nitrogen 29 mg/dL (8-26) 28 mg/dL (8-26) Creatinine 1.2 mg/dL (0.7-1.3) 1.1 mg/dL (0.7-1.3) Estimated GFR (Cockcroft-Gault) 86.0 95.1 BUN/Creatinine Ratio 24 (6-20) Glucose Level 159 mg/dL (70-99) 157 mg/dL (70-99) Calcium Level 6.9 mg/dL (8.5-10.1) 7.1 mg/dL (8.5-10.1) Total Bilirubin 0.3 mg/dL (0.2-1.0) Aspartate Amino Transf (AST/SGOT) 50 U/L (15-37) Alanine Aminotransferase (ALT/SGPT) 25 U/L (16-63) Alkaline Phosphatase 59 U/L (46-116) Total Protein 4.4 g/dL (6.4-8.2) Albumin 1.3 g/dL (3.4-5.0) Albumin/Globulin Ratio 0.4 (1.0-1.7) Segmented Neutrophils % 82 % (35-66) Band Neutrophils % 7 % (0-9) Lymphocytes % 6 % (24-48) Monocytes % 4 % (0-10) Eosinophils % 1 % (0-5) Platelet Estimate Decreased (ADEQUATE) Laboratory Tests Test 10/17/17 04:45 White Blood Count 7.7 x10^3/uL (4.0-11.0) Red Blood Count 3.65 x10^6/uL (4.30-5.70) Hemoglobin 11.0 g/dL (13.0-17.5) Hematocrit 33.5 % (39.0-53.0) Mean Corpuscular Volume 92 fL (79-100) Mean Corpuscular Hemoglobin 30 pg (25-35) Mean Corpuscular Hemoglobin Concent 33 g/dL (31-37) Red Cell Distribution Width 13.9 % (11.5-14.5) Platelet Count 78 x10^3/uL (140-400) Neutrophils (%) (Auto) 93 % (31-73) Lymphocytes (%) (Auto) 3 % (24-48) Monocytes (%) (Auto) 4 % (0-9) Eosinophils (%) (Auto) 0 % (0-3) Basophils (%) (Auto) 0 % (0-3) Neutrophils # (Auto) 7.1 x10^3uL (1.8-7.7) Lymphocytes # (Auto) 0.2 x10^3/uL (1.0-4.8) Monocytes # (Auto) 0.3 x10^3/uL (0.0-1.1) Eosinophils # (Auto) 0.0 x10^3/uL (0.0-0.7) Basophils # (Auto) 0.0 x10^3/uL (0.0-0.2) Segmented Neutrophils % 82 % (35-66) Band Neutrophils % 7 % (0-9) Lymphocytes % 6 % (24-48) Monocytes % 4 % (0-10) Eosinophils % 1 % (0-5) Platelet Estimate Decreased (ADEQUATE) Sodium Level 132 mmol/L (136-145) Potassium Level 5.2 mmol/L (3.5-5.1) Chloride Level 102 mmol/L (98-107) Carbon Dioxide Level 24 mmol/L (21-32) Anion Gap 6 (6-14) Blood Urea Nitrogen 28 mg/dL (8-26) Creatinine 1.1 mg/dL (0.7-1.3) Estimated GFR (Cockcroft-Gault) 95.1 Glucose Level 157 mg/dL (70-99) Calcium Level 7.1 mg/dL (8.5-10.1) Microbiology 10/11/17 Blood Culture - Final, Complete NO GROWTH AFTER 5 DAYS 10/12/17 AFB Specimen Processing Tissue - Final, Resulted 10/12/17 Acid Fast Bacilli Culture, Resulted Pending 10/12/17 Gram Stain - Final, Resulted 10/11/17 Throat Culture - Final, Complete 10/11/17 - Final, Complete 10/11/17 Urine Culture - Final, Complete 10/11/17 Urine Culture Result 1 (DAVIAN) - Final, Complete Medications Current Medications Sodium Chloride 1,000 ml @ 1,000 mls/hr 1X ONCE IV Last administered on 10/10 01:22; Start 10/10/17 at 00:45; Stop 10/10/17 at 01:44; Status DC Acetaminophen (Tylenol) 1,000 mg 1X ONCE PO Last administered on 10/10/17 01 :07; Start 10/10/17 at 00:45; Stop 10/10/17 at 00:46; Status DC Vancomycin HCl (Vanco Per Pharmacy) 1 each PRN DAILY PRN MC SEE COMMENTS Last administered on 10/10/17 02:47; Start 10/10/17 at 00:30; Stop 10/10/17 at 10 :16; Status DC Piperacillin Sod/ Tazobactam Sod 3.375 gm/Dextrose 50 ml @ 100 mls/hr 1X ONCE IV ; Start 10/10/17 at 00:30; Stop 10/10/17 at 00:59; Status UNV Piperacillin Sod/ Tazobactam Sod (Zosyn) 3.375 gm 1X ONCE IVP Last administered on 10/10/17 00:51; Start 10/10/17 at 00:30; Stop 10/10/17 at 00 :31; Status DC Vancomycin HCl 1.75 gm/Dextrose/ Sodium Chloride 500 ml @ 250 mls/hr 1X ONCE IV Last administered on 10/10/17 00:51; Start 10/10/17 at 01:00; Stop 10/10 at 02:59; Status DC Azithromycin 500 mg/Sodium Chloride 250 ml @ 250 mls/hr 1X ONCE IV ; Start at 01:15; Stop 10/10/17 at 02:14; Status UNV Atovaquone (Mepron) 750 mg 1X ONCE PO Last administered on 10/10/17 01:57; Start 10/10/17 at 01:30; Stop 10/10/17 at 01:31; Status DC Ondansetron HCl (Zofran) 4 mg PRN Q8HRS PRN IV NAUSEA/VOMITING; Start at 01:15; Stop 10/11/17 at 01:14; Status DC Azithromycin 250 ml @ 250 mls/hr 1X ONCE IV Last administered on 10/10/17 02:02; Start 10/10/17 at 01:30; Stop 10/10/17 at 02:29; Status DC Prednisone (Prednisone) 40 mg 1X ONCE PO Last administered on 10/10/17 01:57 ; Start 10/10/17 at 02:00; Stop 10/10/17 at 02:01; Status DC Sodium Chloride 1,000 ml @ 1,000 mls/hr Q1H IV Last administered on 03:30; Start 10/10/17 at 02:30; Stop 10/10/17 at 04:25; Status DC Sodium Chloride 500 ml @ 1,000 mls/hr PRN Q30MIN PRN IV SEE COMMENTS; Start 10/10/17 at 02:15 Norepinephrine Bitartrate 250 ml @ 0 mls/hr CONT PRN IV SEE I/O RECORD; Start 10/10/17 at 02:15; Stop 10/10/17 at 08:33; Status DC Dobutamine HCl/ Dextrose 250 ml @ 0 mls/hr CONT PRN IV SEE I/O RECORD; Start 10/10/17 at 02:15; Stop 10/10/17 at 08:33; Status DC Vancomycin HCl 1.25 gm/Sodium Chloride 250 ml @ 167 mls/hr Q12H IV ; Start at 13:00; Stop 10/10/17 at 13:00; Status DC Vancomycin HCl 1 each 1X ONCE MC ; Start 10/11/17 at 12:30; Stop 10/11/17 at 12:31; Status Cancel Ibuprofen (Motrin) 600 mg PRN Q6HRS PRN PO INFLAMMATION Last administered on 21:07; Start 10/10/17 at 03:30 Chlorpromazine HCl (Thorazine) 25 mg PRN Q6HRS PRN PO HICCUPS Last administered on 10/10/17 03:41; Start 10/10/17 at 03:30; Stop 10/10/17 at 08 :33; Status DC Acetaminophen/ Hydrocodone Bitart (Lortab 5/325) 1 tab PRN Q6HRS PRN PO MILD - MODERATE PAIN Last administered on 10/13/17 13:42; Start 10/10/17 at 08:15 Acetaminophen/ Hydrocodone Bitart (Lortab 5/325) 1 tab QID PRN PO pain; Start 10/10/17 at 08:15; Status UNV Atovaquone (Mepron) 750 mg BID PO Last administered on 10/11/17 09:00; Start 10/10/17 at 09:00; Stop 10/11/17 at 11:21; Status DC Azithromycin 500 mg/Sodium Chloride 250 ml @ 250 mls/hr Q24H IV Last administered on 10/16/17 10:30; Start 10/10/17 at 09:00; Stop 10/16/17 at 13 :41; Status DC Levofloxacin/ Dextrose 150 ml @ 100 mls/hr Q24H IV Last administered on 08:22; Start 10/10/17 at 09:00 Chlorpromazine HCl (Thorazine) 25 mg TID PO Last administered on 10/17/17 14: 29; Start 10/10/17 at 09:00 Albuterol/ Ipratropium (Duoneb) 3 ml RTQID NEB Last administered on 10/17/17 11:02; Start 10/10/17 at 09:00 Albuterol Sulfate (Ventolin Neb Soln) 2.5 mg PRN Q4HRS PRN NEB SHORTNESS OF BREATH; Start 10/10/17 at 08:45 Guaifenesin (Robitussin Dm) 10 ml PRN Q6HRS PRN PO COUGH Last administered on 10/16/17 21:08; Start 10/10/17 at 08:45 Sodium Chloride 1,000 ml @ 100 mls/hr Q10H IV Last administered on 10/11/17 04:45; Start 10/10/17 at 08:45; Stop 10/11/17 at 15:58; Status DC Iohexol (Omnipaque 240 Mg/ml) 30 ml 1X ONCE PO Last administered on 11:20; Start 10/10/17 at 09:00; Stop 10/10/17 at 09:01; Status DC Iohexol (Omnipaque 300 Mg/ml) 75 ml 1X ONCE IV Last administered on 12:45; Start 10/10/17 at 09:00; Stop 10/10/17 at 09:01; Status DC Info (Do NOT chart on this entry -- for MONITORING) 1 each PRN DAILY PRN MC SEE COMMENTS; Start 10/10/17 at 09:00; Stop 10/12/17 at 08:59; Status DC Nicotine (Nicoderm Cq 21mg) 1 patch PRN DAILY PRN TD SMOKING CESSATION; Start 10/10/17 at 09:30 Acetaminophen (Tylenol) 650 mg PRN Q6HRS PRN PO FEVER Last administered on 17:26; Start 10/10/17 at 16:15 Sodium Chloride 1,920 ml @ 1,920 mls/hr Q1H IV Last administered on 15:29; Start 10/11/17 at 13:29; Stop 10/11/17 at 15:56; Status DC Sodium Chloride 500 ml @ 1,000 mls/hr PRN Q30MIN PRN IV SEE COMMENTS; Start 10/11/17 at 13:30 Sodium Chloride 1,000 ml @ 175 mls/min Q6M IV Last administered on 10/11/17 13:51; Start 10/11/17 at 13:33; Stop 10/11/17 at 16:02; Status DC Norepinephrine Bitartrate 250 ml @ 0 mls/hr CONT PRN IV SEE I/O RECORD; Start 10/11/17 at 13:30; Stop 10/14/17 at 10:15; Status DC Dobutamine HCl/ Dextrose 250 ml @ 0 mls/hr CONT PRN IV SEE I/O RECORD; Start 10/11/17 at 13:30; Stop 10/15/17 at 16:17; Status DC Meropenem 500 mg/ Sodium Chloride 50 ml @ 100 mls/hr Q8HRS IV ; Start at 14:00; Stop 10/11/17 at 14:00; Status DC Meropenem (Merrem) 500 mg Q8HRS IVP Last administered on 10/16/17 06:22; Start 10/11/17 at 14:00; Stop 10/16/17 at 13:41; Status DC Potassium Chloride (Klor-Con) 40 meq 1X ONCE PO Last administered on 14:56; Start 10/11/17 at 14:30; Stop 10/11/17 at 14:34; Status DC Sodium Chloride 1,000 ml @ 100 mls/hr Q10H IV Last administered on 10/16/17 23:32; Start 10/11/17 at 16:15 Methylprednisolone Sodium Succinate (SOLU-Medrol 40MG VIAL) 40 mg Q12HR IV Last administered on 10/17/17 08:22; Start 10/12/17 at 09:00 Atovaquone (Mepron) 750 mg DAILYWBKFT PO Last administered on 10/17/17 08:21 ; Start 10/12/17 at 08:00 Ondansetron HCl (Zofran) 4 mg PRN Q6HRS PRN IV NAUSEA/VOMITING Last administered on 10/13/17 09:26; Start 10/12/17 at 09:00 Potassium Chloride (Klor-Con) 40 meq 1X ONCE PO Last administered on 10:01; Start 10/12/17 at 09:30; Stop 10/12/17 at 09:31; Status DC Potassium Chloride (Klor-Con) 40 meq DAILYWBKFT PO Last administered on 09:30; Start 10/13/17 at 08:00 Metoprolol Tartrate (Lopressor Vial) 5 mg Q6HRS IVP Last administered on 05:44; Start 10/12/17 at 09:30 Alprazolam (Xanax) 0.25 mg PRN Q6HRS PRN PO ANXIETY / AGITATION Last administered on 10/14/17 05:39; Start 10/12/17 at 18:00; Stop 10/14/17 at 22 :00; Status DC Amino Acids/ Glycerin/ Electrolytes 1,000 ml @ 80 mls/hr [id number] IV Last administered on 10/16/17 23:32; Start 10/12/17 at 18:00 Magnesium Sulfate/ Dextrose 100 ml @ 25 mls/hr 1X ONCE IV Last administered on 10/13/17 09:30; Start 10/13/17 at 09:00; Stop 10/13/17 at 12:59; Status DC Albuterol/ Ipratropium (Duoneb) 3 ml RTQID NEB ; Start 10/14/17 at 12:00; Status UNV Loperamide HCl (Imodium) 2 mg Q4HRS PO Last administered on 10/16/17 12:00; Start 10/14/17 at 12:00 Micafungin Sodium 100 mg/Sodium Chloride 100 ml @ 100 mls/hr Q24H IV Last administered on 10/15/17 13:17; Start 10/14/17 at 15:00; Stop 10/16/17 at 13 :41; Status DC Diphenhydramine HCl (Benadryl) 50 mg PRN Q6HRS PRN IVP ITCHING Last administered on 10/15/17 02:08; Start 10/14/17 at 17:45 Alprazolam (Xanax) 1 mg PRN Q6HRS PRN PO ANXIETY / AGITATION Last administered on 10/17/17 05:44; Start 10/14/17 at 22:00 Multi-Ingred Cream/Lotion/Oil/ Oint (Hydrocerin Cream) 1 frannie PRN Q1HR PRN TP DRY SKIN / SCALING Last administered on 10/17/17 02:00; Start 10/14/17 at 22: 00 Acetaminophen/ Hydrocodone Bitart (Lortab 10/325) 1 tab PRN Q6HRS PRN PO SEVERE PAIN Last administered on 10/16/17 23:33; Start 10/14/17 at 22:00 Oxycodone HCl (Roxicodone) 15 mg PRN Q6HRS PRN PO PAIN Last administered on 08:20; Start 10/14/17 at 22:00 Azithromycin (Zithromax) 1,250 mg WEEKLY PO Last administered on 10/17/17 08: 19; Start 10/17/17 at 09:00 Active Scripts Active [place] 5-325 Tablet (Acetaminophen/Hydrocodone Bitart) 1 Each Tablet 1 Tab PO Q4- 6HRS Bactrim Ds Tablet (Sulfamethoxazole/Trimethoprim) 1 Each Tablet 1 Tab PO BID Bactrim Ds Tablet (Sulfamethoxazole/Trimethoprim) 1 Each Tablet 1 Tab PO BID Reported Oxycodone Hcl 15 Mg Tablet 15 Mg PO PRN TID PRN Ibuprofen 800 Mg Tablet 800 Mg PO PRN Q6HRS PRN Xanax (Alprazolam) 2 Mg Tablet 2 Mg PO PRN TID PRN Hydrocodone-Apap 10-325 (Hydrocodone Bit/Acetaminophen) 1 Each Tablet 1 Tab PO PRN Q6HRS PRN Vitals/I & O Vital Sign - Last 24 Hours 10/16/17 10/16/17 10/16/17 10/16/17 15:00 15:25 18:07 19:00 Temp 98.6 98.1 98.6 98.1 Pulse 89 89 80 Resp 22 20 B/P (MAP) 148/86 (106) 148/86 140/92 (108) Pulse Ox 98 97 O2 Delivery Room Air Nasal Cannula O2 Flow Rate 2.0 10/16/17 10/16/17 10/16/17 10/16/17 19:08 20:00 23:00 23:33 Temp 98.0 98.0 Pulse 85 Resp 20 B/P (MAP) 138/94 (109) Pulse Ox 95 90 O2 Delivery Nasal Cannula Nasal Cannula Nasal Cannula O2 Flow Rate 2.0 2.0 2.0 10/17/17 10/17/17 10/17/17 10/17/17 00:17 00:35 03:00 05:44 Temp 97.5 97.5 Pulse 85 78 94 Resp 20 B/P (MAP) 138/94 135/91 (106) 126/82 Pulse Ox 96 O2 Delivery Nasal Cannula Nasal Cannula O2 Flow Rate 2.0 2.0 10/17/17 10/17/17 10/17/17 10/17/17 07:00 07:27 08:00 11:00 Temp 96.4 98.2 96.4 98.2 Pulse 75 90 Resp 18 B/P (MAP) 122/84 (97) 131/91 (104) Pulse Ox 98 94 91 O2 Delivery Room Air Nasal Cannula Nasal Cannula Room Air O2 Flow Rate 2.0 2.0 10/17/17 11:04 O2 Delivery Nasal Cannula O2 Flow Rate 2.0 Intake and Output 12/10/16/17 10/17/17 15:00 23:00 07:00 Intake Total 240 ml 1010 ml 600 ml Output Total 30 ml 2750 ml 800 ml Balance 210 ml -1740 ml -200 ml DANIE FARIA III DO Oct 17, 2017 14:35
[2017-10-17 15:00] VITALS: BP 109/77
[2017-10-17] MEDS: HYDROcodone/APAP 10/325 1 TAB TABLET PO PRN (18:23)
[2017-10-17 19:00] VITALS: BP 128/100
[2017-10-17 23:00] VITALS: BP 123/98
[2017-10-18 03:00] VITALS: BP 132/71
[2017-10-18] MEDS: ALPRAZolam 1 MG TABLET PO PRN (03:41)
[2017-10-18] MEDS: HYDROcodone/APAP 10/325 1 TAB TABLET PO PRN ×2 (03:41→15:13)
[2017-10-18] MEDS: LOPERAMIDE 2 MG CAPSULE PO SCH ×2 (03:43→08:00)
[2017-10-18 04:26] LABS: BASO % 0 % (0-3); EOS % 0 % (0-3); HEMATOCRIT 33.4 % (39.0-53.0); HEMOGLOBIN 11.3 g/dL (13.0-17.5); LYMPH # 0.2 x10^3/uL (1.0-4.8); LYMPH % 2 % (24-48); MEAN CORPUSCULAR HEMOGLOBIN 31 pg (25-35); MEAN CORPUSCULAR HGB CONC 34 g/dL (31-37); MEAN CORPUSCULAR VOLUME 91 fL (79-100); MONO % 4 % (0-9); NEUT % 94 % (31-73); PLATELET COUNT 96 x10^3/uL (140-400); RED BLOOD COUNT 3.66 x10^6/uL (4.30-5.70); RED CELL DISTRIBUTION WIDTH 13.9 % (11.5-14.5); WHITE BLOOD COUNT 9.8 x10^3/uL (4.0-11.0)
[2017-10-18 04:42] LABS: GFR 106.2; POTASSIUM 5.2 mmol/L (3.5-5.1)
[2017-10-18] MEDS: IV NORMAL SALINE 1000ML BAG 1,000 ML IV SCH (04:48)
[2017-10-18] MEDS: METOPROLOL TARTRATE 5 MG/5 ML VIAL. IVP SCH (06:11)
[2017-10-18 07:00] VITALS: BP 136/96
[2017-10-18] MEDS: IPRATRPIUM/ALBUTEROL 0.5/2.5MG 3 ML NEBU. NEB SCH ×3 (07:46→15:43)
[2017-10-18] MEDS: chlorproMAZINE 25 MG TABLET PO SCH ×2 (09:12→15:13)
[2017-10-18] MEDS: ATOVAQUONE 750 MG/5 ML ORAL.SUSP. PO SCH (09:12)
[2017-10-18] MEDS: [UNRECOGNIZED DRUG - OTHER] PO SCH (09:13)
[2017-10-18] MEDS: methylPREDNISolone SOD SUCC PF 40 MG/ML VIAL. IV SCH (09:13)
--- NOTE | 2017-10-18 10:43 | PDOC ---
PROGRESS NOTES Chief Complaint Chief Complaint Fever, cough, tachycardia, tachypnea on admission, resolved HIV/AIDS on HAART Asthma HCAP History of Present Illness History of Present Illness Patient continues to be weak and tired Patient insists on being discharged today Receiving antibiotics - levofloxacin Receiving procalamine Receiving NS Rectal tube is out today Patient is tolerating food Vitals Vitals Vital Signs Date Time Temp Pulse Resp B/P (MAP) Pulse Ox O2 Delivery O2 Flow Rate FiO2 10/18/17 07:46 93 Nasal Cannula 2.0 10/18/17 07:00 98.0 70 18 136/96 (109) 98.0 Physical Exam Physical Exam NECK: Supple, no JVD, no LN LUNGS: Clear RR =30 HEART: S1S2, no gallop, no murmur ABD: Soft, NT, no organomegaly, no rebound EXT: No edema, no cyanosis OUTSIDE RIGGER: Alert, oriented x 3, no focal neurologic deficit SKIN: rash, with exfoliation, no mucus membrane involvement General: Alert, Oriented X3, Cooperative, No acute distress, Other (cold, multiple blankets on) Heart: Other (TACHY RATE 130) Lungs: Clear Abdomen: Normal bowel sounds, Soft, No tenderness, No hepatosplenomegaly, No masses Extremities: No clubbing, No cyanosis, No edema, Normal pulses, No tenderness/ swelling Skin: Other (flaky dry skin all over the face chest upper extremity) Labs LABS Laboratory Tests Test 10/18/17 04:10 White Blood Count 9.8 x10^3/uL (4.0-11.0) Red Blood Count 3.66 x10^6/uL (4.30-5.70) Hemoglobin 11.3 g/dL (13.0-17.5) Hematocrit 33.4 % (39.0-53.0) Mean Corpuscular Volume 91 fL (79-100) Mean Corpuscular Hemoglobin 31 pg (25-35) Mean Corpuscular Hemoglobin Concent 34 g/dL (31-37) Red Cell Distribution Width 13.9 % (11.5-14.5) Platelet Count 96 x10^3/uL (140-400) Neutrophils (%) (Auto) 94 % (31-73) Lymphocytes (%) (Auto) 2 % (24-48) Monocytes (%) (Auto) 4 % (0-9) Eosinophils (%) (Auto) 0 % (0-3) Basophils (%) (Auto) 0 % (0-3) Neutrophils # (Auto) 9.2 x10^3uL (1.8-7.7) Lymphocytes # (Auto) 0.2 x10^3/uL (1.0-4.8) Monocytes # (Auto) 0.4 x10^3/uL (0.0-1.1) Eosinophils # (Auto) 0.0 x10^3/uL (0.0-0.7) Basophils # (Auto) 0.0 x10^3/uL (0.0-0.2) Sodium Level 133 mmol/L (136-145) Potassium Level 5.2 mmol/L (3.5-5.1) Chloride Level 102 mmol/L (98-107) Carbon Dioxide Level 25 mmol/L (21-32) Anion Gap 6 (6-14) Blood Urea Nitrogen 27 mg/dL (8-26) Creatinine 1.0 mg/dL (0.7-1.3) Estimated GFR (Cockcroft-Gault) 106.2 Glucose Level 146 mg/dL (70-99) Calcium Level 7.0 mg/dL (8.5-10.1) Review of Systems Review of Systems Patient denies abdominal pain, bloating, or nausea Mild edema in the lower extremities b/l Assessment and Plan Assessmemt and Plan Problems Medical Problems: (1) Elevated brain natriuretic peptide (BNP) level Status: Acute (2) HCAP (healthcare-associated pneumonia) Status: Acute (3) HIV (human immunodeficiency virus infection) Status: Acute (4) Immunosuppression Status: Acute (5) Lactic acid acidosis Status: Acute (6) Sepsis Status: Acute Assessment Fever, cough, tachycardia, tachypnea on admission, resolved HIV/AIDS on HAART Asthma HCAP Plan Discharge disposition pending input from subspecialists Continue nebulizer Continue procalamine and NS Continue home meds Problems: Comment Review of Relevant I have reviewed the following items nain (where applicable) has been applied. Labs Laboratory Tests Test 10/17/17 04:45 10/18/17 04:10 White Blood Count 7.7 x10^3/uL (4.0-11.0) 9.8 x10^3/uL (4.0-11.0) Red Blood Count 3.65 x10^6/uL (4.30-5.70) 3.66 x10^6/uL (4.30-5.70) Hemoglobin 11.0 g/dL (13.0-17.5) 11.3 g/dL (13.0-17.5) Hematocrit 33.5 % (39.0-53.0) 33.4 % (39.0-53.0) Mean Corpuscular Volume 92 fL (79-100) 91 fL (79-100) Mean Corpuscular Hemoglobin 30 pg (25-35) 31 pg (25-35) Mean Corpuscular Hemoglobin Concent 33 g/dL (31-37) 34 g/dL (31-37) Red Cell Distribution Width 13.9 % (11.5-14.5) 13.9 % (11.5-14.5) Platelet Count 78 x10^3/uL (140-400) 96 x10^3/uL (140-400) Neutrophils (%) (Auto) 93 % (31-73) 94 % (31-73) Lymphocytes (%) (Auto) 3 % (24-48) 2 % (24-48) Monocytes (%) (Auto) 4 % (0-9) 4 % (0-9) Eosinophils (%) (Auto) 0 % (0-3) 0 % (0-3) Basophils (%) (Auto) 0 % (0-3) 0 % (0-3) Neutrophils # (Auto) 7.1 x10^3uL (1.8-7.7) 9.2 x10^3uL (1.8-7.7) Lymphocytes # (Auto) 0.2 x10^3/uL (1.0-4.8) 0.2 x10^3/uL (1.0-4.8) Monocytes # (Auto) 0.3 x10^3/uL (0.0-1.1) 0.4 x10^3/uL (0.0-1.1) Eosinophils # (Auto) 0.0 x10^3/uL (0.0-0.7) 0.0 x10^3/uL (0.0-0.7) Basophils # (Auto) 0.0 x10^3/uL (0.0-0.2) 0.0 x10^3/uL (0.0-0.2) Segmented Neutrophils % 82 % (35-66) Band Neutrophils % 7 % (0-9) Lymphocytes % 6 % (24-48) Monocytes % 4 % (0-10) Eosinophils % 1 % (0-5) Platelet Estimate Decreased (ADEQUATE) Sodium Level 132 mmol/L (136-145) 133 mmol/L (136-145) Potassium Level 5.2 mmol/L (3.5-5.1) 5.2 mmol/L (3.5-5.1) Chloride Level 102 mmol/L (98-107) 102 mmol/L (98-107) Carbon Dioxide Level 24 mmol/L (21-32) 25 mmol/L (21-32) Anion Gap 6 (6-14) 6 (6-14) Blood Urea Nitrogen 28 mg/dL (8-26) 27 mg/dL (8-26) Creatinine 1.1 mg/dL (0.7-1.3) 1.0 mg/dL (0.7-1.3) Estimated GFR (Cockcroft-Gault) 95.1 106.2 Glucose Level 157 mg/dL (70-99) 146 mg/dL (70-99) Calcium Level 7.1 mg/dL (8.5-10.1) 7.0 mg/dL (8.5-10.1) Laboratory Tests Test 10/18/17 04:10 White Blood Count 9.8 x10^3/uL (4.0-11.0) Red Blood Count 3.66 x10^6/uL (4.30-5.70) Hemoglobin 11.3 g/dL (13.0-17.5) Hematocrit 33.4 % (39.0-53.0) Mean Corpuscular Volume 91 fL (79-100) Mean Corpuscular Hemoglobin 31 pg (25-35) Mean Corpuscular Hemoglobin Concent 34 g/dL (31-37) Red Cell Distribution Width 13.9 % (11.5-14.5) Platelet Count 96 x10^3/uL (140-400) Neutrophils (%) (Auto) 94 % (31-73) Lymphocytes (%) (Auto) 2 % (24-48) Monocytes (%) (Auto) 4 % (0-9) Eosinophils (%) (Auto) 0 % (0-3) Basophils (%) (Auto) 0 % (0-3) Neutrophils # (Auto) 9.2 x10^3uL (1.8-7.7) Lymphocytes # (Auto) 0.2 x10^3/uL (1.0-4.8) Monocytes # (Auto) 0.4 x10^3/uL (0.0-1.1) Eosinophils # (Auto) 0.0 x10^3/uL (0.0-0.7) Basophils # (Auto) 0.0 x10^3/uL (0.0-0.2) Sodium Level 133 mmol/L (136-145) Potassium Level 5.2 mmol/L (3.5-5.1) Chloride Level 102 mmol/L (98-107) Carbon Dioxide Level 25 mmol/L (21-32) Anion Gap 6 (6-14) Blood Urea Nitrogen 27 mg/dL (8-26) Creatinine 1.0 mg/dL (0.7-1.3) Estimated GFR (Cockcroft-Gault) 106.2 Glucose Level 146 mg/dL (70-99) Calcium Level 7.0 mg/dL (8.5-10.1) Microbiology 10/15/17 AFB Specimen Processing Tissue - Final, Resulted 10/15/17 Acid Fast Bacilli Culture, Resulted Pending 10/15/17 Gram Stain, Resulted Pending 10/12/17 AFB Specimen Processing Tissue - Final, Resulted 10/12/17 Acid Fast Bacilli Culture, Resulted Pending 10/12/17 Gram Stain - Final, Resulted 10/11/17 Throat Culture - Final, Complete 10/11/17 - Final, Complete 10/11/17 Urine Culture - Final, Complete 10/11/17 Urine Culture Result 1 (DAVIAN) - Final, Complete Medications Current Medications Sodium Chloride 1,000 ml @ 1,000 mls/hr 1X ONCE IV Last administered on 10/10 01:22; Start 10/10/17 at 00:45; Stop 10/10/17 at 01:44; Status DC Acetaminophen (Tylenol) 1,000 mg 1X ONCE PO Last administered on 10/10/17 01 :07; Start 10/10/17 at 00:45; Stop 10/10/17 at 00:46; Status DC Vancomycin HCl (Vanco Per Pharmacy) 1 each PRN DAILY PRN MC SEE COMMENTS Last administered on 10/10/17 02:47; Start 10/10/17 at 00:30; Stop 10/10/17 at 10 :16; Status DC Piperacillin Sod/ Tazobactam Sod 3.375 gm/Dextrose 50 ml @ 100 mls/hr 1X ONCE IV ; Start 10/10/17 at 00:30; Stop 10/10/17 at 00:59; Status UNV Piperacillin Sod/ Tazobactam Sod (Zosyn) 3.375 gm 1X ONCE IVP Last administered on 10/10/17 00:51; Start 10/10/17 at 00:30; Stop 10/10/17 at 00 :31; Status DC Vancomycin HCl 1.75 gm/Dextrose/ Sodium Chloride 500 ml @ 250 mls/hr 1X ONCE IV Last administered on 10/10/17 00:51; Start 10/10/17 at 01:00; Stop 10/10 at 02:59; Status DC Azithromycin 500 mg/Sodium Chloride 250 ml @ 250 mls/hr 1X ONCE IV ; Start at 01:15; Stop 10/10/17 at 02:14; Status UNV Atovaquone (Mepron) 750 mg 1X ONCE PO Last administered on 10/10/17 01:57; Start 10/10/17 at 01:30; Stop 10/10/17 at 01:31; Status DC Ondansetron HCl (Zofran) 4 mg PRN Q8HRS PRN IV NAUSEA/VOMITING; Start at 01:15; Stop 10/11/17 at 01:14; Status DC Azithromycin 250 ml @ 250 mls/hr 1X ONCE IV Last administered on 10/10/17 02:02; Start 10/10/17 at 01:30; Stop 10/10/17 at 02:29; Status DC Prednisone (Prednisone) 40 mg 1X ONCE PO Last administered on 10/10/17 01:57 ; Start 10/10/17 at 02:00; Stop 10/10/17 at 02:01; Status DC Sodium Chloride 1,000 ml @ 1,000 mls/hr Q1H IV Last administered on 03:30; Start 10/10/17 at 02:30; Stop 10/10/17 at 04:25; Status DC Sodium Chloride 500 ml @ 1,000 mls/hr PRN Q30MIN PRN IV SEE COMMENTS; Start 10/10/17 at 02:15 Norepinephrine Bitartrate 250 ml @ 0 mls/hr CONT PRN IV SEE I/O RECORD; Start 10/10/17 at 02:15; Stop 10/10/17 at 08:33; Status DC Dobutamine HCl/ Dextrose 250 ml @ 0 mls/hr CONT PRN IV SEE I/O RECORD; Start 10/10/17 at 02:15; Stop 10/10/17 at 08:33; Status DC Vancomycin HCl 1.25 gm/Sodium Chloride 250 ml @ 167 mls/hr Q12H IV ; Start at 13:00; Stop 10/10/17 at 13:00; Status DC Vancomycin HCl 1 each 1X ONCE MC ; Start 10/11/17 at 12:30; Stop 10/11/17 at 12:31; Status Cancel Ibuprofen (Motrin) 600 mg PRN Q6HRS PRN PO INFLAMMATION Last administered on 21:07; Start 10/10/17 at 03:30 Chlorpromazine HCl (Thorazine) 25 mg PRN Q6HRS PRN PO HICCUPS Last administered on 10/10/17 03:41; Start 10/10/17 at 03:30; Stop 10/10/17 at 08 :33; Status DC Acetaminophen/ Hydrocodone Bitart (Lortab 5/325) 1 tab PRN Q6HRS PRN PO MILD - MODERATE PAIN Last administered on 10/13/17 13:42; Start 10/10/17 at 08:15 Acetaminophen/ Hydrocodone Bitart (Lortab 5/325) 1 tab QID PRN PO pain; Start 10/10/17 at 08:15; Status UNV Atovaquone (Mepron) 750 mg BID PO Last administered on 10/11/17 09:00; Start 10/10/17 at 09:00; Stop 10/11/17 at 11:21; Status DC Azithromycin 500 mg/Sodium Chloride 250 ml @ 250 mls/hr Q24H IV Last administered on 10/16/17 10:30; Start 10/10/17 at 09:00; Stop 10/16/17 at 13 :41; Status DC Levofloxacin/ Dextrose 150 ml @ 100 mls/hr Q24H IV Last administered on 09:13; Start 10/10/17 at 09:00 Chlorpromazine HCl (Thorazine) 25 mg TID PO Last administered on 10/18/17 09: 12; Start 10/10/17 at 09:00 Albuterol/ Ipratropium (Duoneb) 3 ml RTQID NEB Last administered on 10/18/17 07:46; Start 10/10/17 at 09:00 Albuterol Sulfate (Ventolin Neb Soln) 2.5 mg PRN Q4HRS PRN NEB SHORTNESS OF BREATH; Start 10/10/17 at 08:45 Guaifenesin (Robitussin Dm) 10 ml PRN Q6HRS PRN PO COUGH Last administered on 10/16/17 21:08; Start 10/10/17 at 08:45 Sodium Chloride 1,000 ml @ 100 mls/hr Q10H IV Last administered on 10/11/17 04:45; Start 10/10/17 at 08:45; Stop 10/11/17 at 15:58; Status DC Iohexol (Omnipaque 240 Mg/ml) 30 ml 1X ONCE PO Last administered on 11:20; Start 10/10/17 at 09:00; Stop 10/10/17 at 09:01; Status DC Iohexol (Omnipaque 300 Mg/ml) 75 ml 1X ONCE IV Last administered on 12:45; Start 10/10/17 at 09:00; Stop 10/10/17 at 09:01; Status DC Info (Do NOT chart on this entry -- for MONITORING) 1 each PRN DAILY PRN MC SEE COMMENTS; Start 10/10/17 at 09:00; Stop 10/12/17 at 08:59; Status DC Nicotine (Nicoderm Cq 21mg) 1 patch PRN DAILY PRN TD SMOKING CESSATION; Start 10/10/17 at 09:30 Acetaminophen (Tylenol) 650 mg PRN Q6HRS PRN PO FEVER Last administered on 17:26; Start 10/10/17 at 16:15 Sodium Chloride 1,920 ml @ 1,920 mls/hr Q1H IV Last administered on 15:29; Start 10/11/17 at 13:29; Stop 10/11/17 at 15:56; Status DC Sodium Chloride 500 ml @ 1,000 mls/hr PRN Q30MIN PRN IV SEE COMMENTS; Start 10/11/17 at 13:30 Sodium Chloride 1,000 ml @ 175 mls/min Q6M IV Last administered on 10/11/17 13:51; Start 10/11/17 at 13:33; Stop 10/11/17 at 16:02; Status DC Norepinephrine Bitartrate 250 ml @ 0 mls/hr CONT PRN IV SEE I/O RECORD; Start 10/11/17 at 13:30; Stop 10/14/17 at 10:15; Status DC Dobutamine HCl/ Dextrose 250 ml @ 0 mls/hr CONT PRN IV SEE I/O RECORD; Start 10/11/17 at 13:30; Stop 10/15/17 at 16:17; Status DC Meropenem 500 mg/ Sodium Chloride 50 ml @ 100 mls/hr Q8HRS IV ; Start at 14:00; Stop 10/11/17 at 14:00; Status DC Meropenem (Merrem) 500 mg Q8HRS IVP Last administered on 10/16/17 06:22; Start 10/11/17 at 14:00; Stop 10/16/17 at 13:41; Status DC Potassium Chloride (Klor-Con) 40 meq 1X ONCE PO Last administered on 14:56; Start 10/11/17 at 14:30; Stop 10/11/17 at 14:34; Status DC Sodium Chloride 1,000 ml @ 100 mls/hr Q10H IV Last administered on 10/17/17 21:19; Start 10/11/17 at 16:15 Methylprednisolone Sodium Succinate (SOLU-Medrol 40MG VIAL) 40 mg Q12HR IV Last administered on 10/18/17 09:13; Start 10/12/17 at 09:00 Atovaquone (Mepron) 750 mg DAILYWBKFT PO Last administered on 10/18/17 09:12 ; Start 10/12/17 at 08:00 Ondansetron HCl (Zofran) 4 mg PRN Q6HRS PRN IV NAUSEA/VOMITING Last administered on 10/13/17 09:26; Start 10/12/17 at 09:00 Potassium Chloride (Klor-Con) 40 meq 1X ONCE PO Last administered on 10:01; Start 10/12/17 at 09:30; Stop 10/12/17 at 09:31; Status DC Potassium Chloride (Klor-Con) 40 meq DAILYWBKFT PO Last administered on 09:30; Start 10/13/17 at 08:00; Stop 10/17/17 at 15:24; Status DC Metoprolol Tartrate (Lopressor Vial) 5 mg Q6HRS IVP Last administered on 06:11; Start 10/12/17 at 09:30 Alprazolam (Xanax) 0.25 mg PRN Q6HRS PRN PO ANXIETY / AGITATION Last administered on 10/14/17 05:39; Start 10/12/17 at 18:00; Stop 10/14/17 at 22 :00; Status DC Amino Acids/ Glycerin/ Electrolytes 1,000 ml @ 80 mls/hr [id number] IV Last administered on 10/17/17 18:24; Start 10/12/17 at 18:00 Magnesium Sulfate/ Dextrose 100 ml @ 25 mls/hr 1X ONCE IV Last administered on 10/13/17 09:30; Start 10/13/17 at 09:00; Stop 10/13/17 at 12:59; Status DC Albuterol/ Ipratropium (Duoneb) 3 ml RTQID NEB ; Start 10/14/17 at 12:00; Status UNV Loperamide HCl (Imodium) 2 mg Q4HRS PO Last administered on 10/16/17 12:00; Start 10/14/17 at 12:00 Micafungin Sodium 100 mg/Sodium Chloride 100 ml @ 100 mls/hr Q24H IV Last administered on 10/15/17 13:17; Start 10/14/17 at 15:00; Stop 10/16/17 at 13 :41; Status DC Diphenhydramine HCl (Benadryl) 50 mg PRN Q6HRS PRN IVP ITCHING Last administered on 10/15/17 02:08; Start 10/14/17 at 17:45 Alprazolam (Xanax) 1 mg PRN Q6HRS PRN PO ANXIETY / AGITATION Last administered on 10/18/17 03:41; Start 10/14/17 at 22:00 Multi-Ingred Cream/Lotion/Oil/ Oint (Hydrocerin Cream) 1 frannie PRN Q1HR PRN TP DRY SKIN / SCALING Last administered on 10/17/17 02:00; Start 10/14/17 at 22: 00 Acetaminophen/ Hydrocodone Bitart (Lortab 10/325) 1 tab PRN Q6HRS PRN PO SEVERE PAIN Last administered on 10/18/17 03:41; Start 10/14/17 at 22:00 Oxycodone HCl (Roxicodone) 15 mg PRN Q6HRS PRN PO PAIN Last administered on 08:20; Start 10/14/17 at 22:00 Azithromycin (Zithromax) 1,250 mg WEEKLY PO Last administered on 10/17/17 08: 19; Start 10/17/17 at 09:00 Active Scripts Active [place] 5-325 Tablet (Acetaminophen/Hydrocodone Bitart) 1 Each Tablet 1 Tab PO Q4- 6HRS Bactrim Ds Tablet (Sulfamethoxazole/Trimethoprim) 1 Each Tablet 1 Tab PO BID Bactrim Ds Tablet (Sulfamethoxazole/Trimethoprim) 1 Each Tablet 1 Tab PO BID Reported Oxycodone Hcl 15 Mg Tablet 15 Mg PO PRN TID PRN Ibuprofen 800 Mg Tablet 800 Mg PO PRN Q6HRS PRN Xanax (Alprazolam) 2 Mg Tablet 2 Mg PO PRN TID PRN Hydrocodone-Apap 10-325 (Hydrocodone Bit/Acetaminophen) 1 Each Tablet 1 Tab PO PRN Q6HRS PRN Vitals/I & O Vital Sign - Last 24 Hours 10/17/17 10/17/17 10/17/17 10/17/17 11:00 11:04 15:00 16:08 Temp 98.2 96.6 98.2 96.6 Pulse 90 69 Resp 18 18 B/P (MAP) 131/91 (104) 109/77 (88) Pulse Ox 91 94 O2 Delivery Room Air Nasal Cannula Room Air Nasal Cannula O2 Flow Rate 2.0 2.0 10/17/17 10/17/17 10/17/17 10/17/17 18:23 18:24 19:00 19:45 Temp 97.7 97.7 Pulse 76 Resp 20 B/P (MAP) 148/89 128/100 (109) Pulse Ox 94 92 O2 Delivery Nasal Cannula Room Air Nasal Cannula O2 Flow Rate 2.0 2.0 10/17/17 10/17/17 10/17/17 10/18/17 20:59 23:00 23:32 03:00 Temp 97.5 97.9 97.5 97.9 Pulse 81 81 83 Resp 19 18 B/P (MAP) 123/98 (106) 123/98 132/71 (91) Pulse Ox 93 93 92 O2 Delivery Room Air Room Air Room Air 10/18/17 10/18/17 10/18/17 10/18/17 03:41 04:45 06:11 07:00 Temp 98.0 98.0 Pulse 84 70 Resp 18 B/P (MAP) 126/85 136/96 (109) Pulse Ox 93 O2 Delivery Room Air Room Air Room Air 10/18/17 07:46 Pulse Ox 93 O2 Delivery Nasal Cannula O2 Flow Rate 2.0 Intake and Output 10/17/17 10/17/17 10/18/17 15:00 23:00 07:00 Intake Total 250 ml 1675 ml Output Total 2000 ml Balance 250 ml -325 ml DANIE FARIA III DO Oct 18, 2017 10:43
[2017-10-18 11:00] VITALS: BP 138/94
[2017-10-18 11:20] LABS: CYTOMEGALOVIRUS QUANT Positive < 200 IU/mL (Negative)
[2017-10-18 15:00] VITALS: BP 134/92
--- NOTE | 2017-10-18 17:32 | PDOC ---
PULMONARY PROGRESS NOTES Subjective PT WEAK Vitals Vital Signs Date Time Temp Pulse Resp B/P (MAP) Pulse Ox O2 Delivery O2 Flow Rate FiO2 10/18/17 15:44 Nasal Cannula 2.0 10/18/17 15:13 94 10/18/17 15:00 97.9 72 18 134/92 (106) 97.9 ROS: No Nausea, No Chest Pain, No Abdominal Pain, No Increase Cough General: Alert, No acute distress Lungs: Clear Cardiovascular: S1, S2 Abdomen: Soft Neuro Exam: Alert Extremities: No Edema Skin: Warm, Other (exfoliation ) Labs Laboratory Tests Test 10/17/17 04:45 10/18/17 04:10 White Blood Count 7.7 x10^3/uL (4.0-11.0) 9.8 x10^3/uL (4.0-11.0) Red Blood Count 3.65 x10^6/uL (4.30-5.70) 3.66 x10^6/uL (4.30-5.70) Hemoglobin 11.0 g/dL (13.0-17.5) 11.3 g/dL (13.0-17.5) Hematocrit 33.5 % (39.0-53.0) 33.4 % (39.0-53.0) Mean Corpuscular Volume 92 fL (79-100) 91 fL (79-100) Mean Corpuscular Hemoglobin 30 pg (25-35) 31 pg (25-35) Mean Corpuscular Hemoglobin Concent 33 g/dL (31-37) 34 g/dL (31-37) Red Cell Distribution Width 13.9 % (11.5-14.5) 13.9 % (11.5-14.5) Platelet Count 78 x10^3/uL (140-400) 96 x10^3/uL (140-400) Neutrophils (%) (Auto) 93 % (31-73) 94 % (31-73) Lymphocytes (%) (Auto) 3 % (24-48) 2 % (24-48) Monocytes (%) (Auto) 4 % (0-9) 4 % (0-9) Eosinophils (%) (Auto) 0 % (0-3) 0 % (0-3) Basophils (%) (Auto) 0 % (0-3) 0 % (0-3) Neutrophils # (Auto) 7.1 x10^3uL (1.8-7.7) 9.2 x10^3uL (1.8-7.7) Lymphocytes # (Auto) 0.2 x10^3/uL (1.0-4.8) 0.2 x10^3/uL (1.0-4.8) Monocytes # (Auto) 0.3 x10^3/uL (0.0-1.1) 0.4 x10^3/uL (0.0-1.1) Eosinophils # (Auto) 0.0 x10^3/uL (0.0-0.7) 0.0 x10^3/uL (0.0-0.7) Basophils # (Auto) 0.0 x10^3/uL (0.0-0.2) 0.0 x10^3/uL (0.0-0.2) Segmented Neutrophils % 82 % (35-66) Band Neutrophils % 7 % (0-9) Lymphocytes % 6 % (24-48) Monocytes % 4 % (0-10) Eosinophils % 1 % (0-5) Platelet Estimate Decreased (ADEQUATE) Sodium Level 132 mmol/L (136-145) 133 mmol/L (136-145) Potassium Level 5.2 mmol/L (3.5-5.1) 5.2 mmol/L (3.5-5.1) Chloride Level 102 mmol/L (98-107) 102 mmol/L (98-107) Carbon Dioxide Level 24 mmol/L (21-32) 25 mmol/L (21-32) Anion Gap 6 (6-14) 6 (6-14) Blood Urea Nitrogen 28 mg/dL (8-26) 27 mg/dL (8-26) Creatinine 1.1 mg/dL (0.7-1.3) 1.0 mg/dL (0.7-1.3) Estimated GFR (Cockcroft-Gault) 95.1 106.2 Glucose Level 157 mg/dL (70-99) 146 mg/dL (70-99) Calcium Level 7.1 mg/dL (8.5-10.1) 7.0 mg/dL (8.5-10.1) Laboratory Tests Test 10/18/17 04:10 White Blood Count 9.8 x10^3/uL (4.0-11.0) Red Blood Count 3.66 x10^6/uL (4.30-5.70) Hemoglobin 11.3 g/dL (13.0-17.5) Hematocrit 33.4 % (39.0-53.0) Mean Corpuscular Volume 91 fL (79-100) Mean Corpuscular Hemoglobin 31 pg (25-35) Mean Corpuscular Hemoglobin Concent 34 g/dL (31-37) Red Cell Distribution Width 13.9 % (11.5-14.5) Platelet Count 96 x10^3/uL (140-400) Neutrophils (%) (Auto) 94 % (31-73) Lymphocytes (%) (Auto) 2 % (24-48) Monocytes (%) (Auto) 4 % (0-9) Eosinophils (%) (Auto) 0 % (0-3) Basophils (%) (Auto) 0 % (0-3) Neutrophils # (Auto) 9.2 x10^3uL (1.8-7.7) Lymphocytes # (Auto) 0.2 x10^3/uL (1.0-4.8) Monocytes # (Auto) 0.4 x10^3/uL (0.0-1.1) Eosinophils # (Auto) 0.0 x10^3/uL (0.0-0.7) Basophils # (Auto) 0.0 x10^3/uL (0.0-0.2) Sodium Level 133 mmol/L (136-145) Potassium Level 5.2 mmol/L (3.5-5.1) Chloride Level 102 mmol/L (98-107) Carbon Dioxide Level 25 mmol/L (21-32) Anion Gap 6 (6-14) Blood Urea Nitrogen 27 mg/dL (8-26) Creatinine 1.0 mg/dL (0.7-1.3) Estimated GFR (Cockcroft-Gault) 106.2 Glucose Level 146 mg/dL (70-99) Calcium Level 7.0 mg/dL (8.5-10.1) Medications Active Scripts Medications Dose Route/Sig Max Daily Dose Days Date Category [place] 5-325 Tablet (Acetaminophen/Hydrocodone Bitart) 1 Each Tablet 1 Tab PO Q4-6HRS 08/11/17 Rx Bactrim Ds Tablet (Sulfamethoxazole/Trimethoprim) 1 Each Tablet 1 Tab PO BID 08/11/17 Rx [place] 5-325 Tablet (Acetaminophen/Hydrocodone Bitart) 1 Each Tablet 1 Tab PO PRN Q6HRS PRN 04/24/16 Rx Bactrim Ds Tablet (Sulfamethoxazole/Trimethoprim) 1 Each Tablet 1 Tab PO BID 04/24/[address] CHEST/ABD/PELVIS 1. Minimal ground-glass opacity in the right middle lobe. 2. Emphysema with parenchymal scarring. 3. Minimal distal ileal mural thickening compatible with nonspecific enteritis. 4. Trace amount of free fluid in the deep pelvis. Impression . 1. Febrile/HIV PER ID 2. History of human immunodeficiency virus/acquired immune deficiency syndrome with CD4 count of 55 on HAART treatment. 3. History of tobaccoism. 4. History of asthma. 5, PNEUMONIA Plan . PT SEEN PRIOR TO D/C WANTED TO GO HOME OK TO DC FROM MY [facility] PER ID FOLLOW UP AT D/C KYLER MOREL MD Oct 18, 2017 17:32
== END 2017-10-18 16:48 | disposition home health service (06) | DRG 974 ==
LOC: ER 22:52 → 1 WEST ICU 10-10 00:56 → 5 NORTH 10-10 19:19 → 1 WEST ICU 10-11 14:20 → 5 SOUTH 10-14 09:49
PROVIDERS: ADMIT Internal Medicine; ATTEND Internal Medicine
DX: B20 Human immunodeficiency virus [HIV] disease (principal); A41.9 Sepsis, unspecified organism; J96.01 Acute respiratory failure with hypoxia; E44.0 Moderate protein-calorie malnutrition; D69.6 Thrombocytopenia, unspecified; E87.2 Acidosis; J18.9 Pneumonia, unspecified organism; J43.9 Emphysema, unspecified; J98.11 Atelectasis; L26 Exfoliative dermatitis; F17.210 Nicotine dependence, cigarettes, uncomplicated; J45.909 Unspecified asthma, uncomplicated; K52.9 Noninfective gastroenteritis and colitis, unspecified; Z51.5 Encounter for palliative care; Y95 Nosocomial condition; Z79.899 Other long term (current) drug therapy; Z87.01 Personal history of pneumonia (recurrent); Z91.14 Patient's other noncompliance with medication regimen; Z91.19 Patient's noncompliance with other medical treatment and regimen; Z88.2 Allergy status to sulfonamides; Z88.8 Allergy status to other drugs, medicaments and biological substances; Z68.32 Body mass index [BMI] 32.0-32.9, adult
CPT/HCPCS: 36415; 36600; 70450; 71010; 71020; 71260; 74177; 80048; 80053; 80076; 80307; 81001; 82550; 82805; 82955; 83605; 83735; 83880; 84145; 85007; 85025; 85379; 85384; 85610; 85730; 86593; 86644; 86645; 86777; 86778; 87040; 87045; 87070; 87086; 87116; 87324; 87328; 87496; 87497; 87536; 87641; 87899; 93005; 93306; 94640; 94760; 96361; 96365; 96367; 96375; J0456; J1200; J1956; J2185; J2248; J2405; J2543; J2920; J3370; J3475; J3490; J7030; J7050; J7512; J7620; Q0144; Q0161; Q9966; Q9967; 97116; 97530; 99291-25; G0479

== ENCOUNTER 2021-11-03 19:00 | Emergency (ER) | payer BC, MEDICAID, OTHER ==
[~2021-11-03] VITALS: Ht 167.6 cm; Wt 69.5 kg
[~2021-11-03 19:00] MED LIST changes: +ALPR2TAB2 PO; +HYDR-2769 PO; +HYDR-3164 PO; -HYDR-971 PO; +IBUP-1060 PO; +OXYC15TA3 PO
[2021-11-03] MEDS ORDERED: LIDOCAINE 2% Multi-Dose 20 ML VIAL. ONE (20:50)
[2021-11-03] MEDS ORDERED: HYDROcodone/APAP 5/325MG 1 TAB TABLET ONE (20:50)
[2021-11-03 20:54] VITALS: BP 148/77
[2021-11-03] MEDS ORDERED: ALPRAZolam 0.5 MG TABLET PO ONE (21:00)
[2021-11-03] MEDS ORDERED: HYDROcodone/APAP 5/325MG 1 TAB TABLET PO ONE (21:00)
[2021-11-03] MEDS ORDERED: LIDOCAINE 2% Multi-Dose 20 ML VIAL. IJ ONE (21:00)
[2021-11-03] MEDS ORDERED: CEPH500C PO (21:10)
--- NOTE | 2021-11-03 21:10 | PHYS DOC ---
Past Medical History Past Medical History: HIV Past Surgical History: No Surgical History Smoking Status: Current Every Day Smoker Alcohol Use: None Drug Use: None General Adult EDM: Chief Complaint: SKIN RASH/ABSCESS HPI: HPI: Patient is a 36 year old male who presents with abscess under his right armpit. Patient states he has a history of abscesses. Reporting pain under his arm. Nuys taking anything for pain before arriving. Patient states "I have been taking some type of penicillin that I got from someone". Denies fevers. Denies medical history. Review of Systems: Review of Systems: ROS At least 10 ROS systems have been reviewed and are negative except as documented in the HPI. General: Negative except as outlined in HPI above. Skin: Negative except as outlined in HPI above. HEENT: Negative except as outlined in HPI above. Neck: Negative except as outlined in HPI above. Respiratory: Negative except as outlined in HPI above.. Cardiovascular: Negative except as outlined in HPI above. Abdomen: Negative except as outlined in HPI above. : Negative except as outlined in HPI above. Back/MSK: Negative except as outlined in HPI above. Neuro: Negative except as outlined in HPI above. Psych: Negative except as outlined in HPI above. Heart Score: C/O Chest Pain: No Risk Factors: Risk Factors: DM, Current or recent (<one month) smoker, HTN, HLP, family history of CAD, obesity. Risk Scores: Score 0 - 3: 2.5% MACE over next 6 weeks - Discharge Home Score 4 - 6: 20.3% MACE over next 6 weeks - Admit for Clinical Observation Score 7 - 10: 72.7% MACE over next 6 weeks - Early Invasive Strategies Current Medications: Current Medications Medications (Trade) Dose Ordered Sig/Nay Start Time Stop Time Status Last Admin Dose Admin Acetaminophen/ Hydrocodone Bitart (Lortab 5/325) 1 tab 1X ONCE 11/03/21 21:00 11/03/21 21:01 DC Alprazolam (Xanax) 1 mg 1X ONCE 11/03/21 21:00 11/03/21 21:01 DC Lidocaine HCl (Lidocaine 2% 20ml Vial) 20 ml 1X ONCE 11/03/21 21:00 11/03/21 21:01 DC Allergies: Allergies: Allergies Coded Allergies Type Severity Reaction Last Updated Verified quetiapine Allergy Intermediate jittery/sweaty 10/11/17 Yes sulfamethoxazole Allergy Intermediate 10/11/17 Yes trimethoprim Allergy Intermediate 10/11/17 Yes Penicillins Allergy Unknown 11/03/21 Yes tramadol Adverse Reaction Intermediate "makes me feel funny" 10/11/17 Yes Physical Exam: PE: Constitutional: Well developed, well nourished, no acute distress, non-toxic appearance. [] HENT: Normocephalic, atraumatic, bilateral external ears normal, oropharynx moist, no oral exudates, nose normal. [] Eyes: PERRLA, EOMI, conjunctiva normal, no discharge. [] Neck: Normal range of motion, no tenderness, supple, no stridor. [] Cardiovascular:Heart rate regular rhythm, no murmur [] Lungs & Thorax: Bilateral breath sounds clear to auscultation [] Abdomen: Bowel sounds normal, soft, no tenderness, no masses, no pulsatile pelon s. [] Skin: Red, swollen, red, fluctuant, abscess under right armpit Back: No tenderness, no CVA tenderness. [] Extremities: No tenderness, no cyanosis, no clubbing, ROM intact, no edema. [] Neurologic: Alert and oriented X 3, normal motor function, normal sensory function, no focal deficits noted. [] Psychologic: Affect normal, judgement normal, mood normal. [] Current Patient Data: Vital Signs: Vital Signs Date Time Temp Pulse Resp B/P (MAP) Pulse Ox O2 Delivery O2 Flow Rate FiO2 11/03/21 20:54 94 18 148/77 (100) 99 Room Air 11/03/21 19:30 98.6 98.6 EKG: EKG: [] Radiology/Procedures: Radiology/Procedures: [] Course & Med Decision Making: Course & Med Decision Making Pertinent Labs and Imaging studies reviewed. (See chart for details) [] 36-year-old male presents with abscess under his right armpit. Abscess was drained. Patient did not want area numbed. Patient handled procedure well. Patient was reporting high anxiety. Patient given anxiety medication and pain medication while in the ER. Wound was packed. Patient started on antibiotics. Wound is covered with nonadherent dressing. Discussed signs of infection to watch for. Ibuprofen at home for discomfort. Return for wound check in 2 days or follow-up with PCP. Mercy Disclaimer: Mercy Disclaimer: This electronic medical record was generated, in whole or in part, using a voice recognition dictation system. Departure Departure Impression: Primary Impression: Abscess Disposition: 01 HOME / SELF CARE / HOMELESS Condition: STABLE Referrals: UNKNOWN PCP NAME (PCP) Patient Instructions: Abscess, [id number] Additional Instructions: You were seen in the emergency room for abscess on your right armpit. The abscess was drained. Starting on antibiotics. Please make sure you take in full and as directed. Ibuprofen for discomfort. You need to have your wound rechecked in 2 days. Follow-up with your PCP or return to the ER. Keep the wound clean and dry. Watch for signs of infection EMERGENCY DEPARTMENT GENERAL DISCHARGE INSTRUCTIONS Thank you for coming to [facility] Emergency Department (ED) today and trusting us with you care. We trust that you had a positive experience in our Emergency Department. If you wish to speak to the department management, you may call the Director at [phone]. YOUR FOLLOW UP INSTRUCTIONS ARE FOLLOWS: 1. Do you have a private Doctor? If you do not have a private doctor, please ask for a resource list of physicians or clinics that may be able to assist you with follow up care. 2. The Emergency Physicain has interpreted your x-rays. The X-Ray specialist will also review them. If there is a change in the findings, you will be notified in 48 hours when at all possible. 3. A lab test or culture has been done, your results will be reviewed and you will be notified if you need a change in treatment. ADDITIONAL INSTRUCTIONS AND INFORMATION: 1. Your care today has been supervised by a physician who is specially trained in emergency care. Many problems require more than one evaluation for a complete diagnosis and treatment. We recommend that you schedule your follow up appointment as recommended to ensure complete treatment of you illness or injury. If you are unable to obtain follow up care and continue to have a problem, or if your condition worsens, we recommend that you return to the ED. 2. We are not able to safely determine your condition over the phone nor are we able to give sound medical advice over the phone. For these safety reasons, if you call for medical advice we will ask you to come to the ED for further evaluation. 3. If you have any questions regarding these discharge instructions please call the ED at [phone]. SAFETY INFORMATION: In the interest of safety, wellness, and injury prevention; we encourage you to wear your sealbelt, if you smoke; quite smoking, and we encourage family to use a protective helmet for bicycling and other sporting events that present an increased risk for head injury. IF YOUR SYMPTOMS WORSEN OR NEW SYMPTOMS DEVELOP, OR YOU HAVE CONCERNS ABOUT YOUR CONDITION; OR IF YOUR CONDITION WORSENS WHILE YOU ARE WAITING FOR YOUR FOLLOW UP APPOINTMENT; EITHER CONTACT YOUR PRIMARY CARE DOCTOR, THE PHYSICIAN WHOSE NAME AND NUMBER YOU WERE GIVEN, OR RETURN TO THE ED IMMEDIATELY. Scripts Cephalexin (KEFLEX) 500 Mg Capsule 1 CAP PO BID for abscess for 7 Days, #14 CAP Prov: ALEJANDRO WEISS APRN 11/03/21 ALEJANDRO WEISS APRN Nov 03, 2021 21:10
== END 2021-11-03 21:27 | disposition home or self-care (01) ==
LOC: ER 19:00
DX: L02.413 Cutaneous abscess of right upper limb (principal); F17.200 Nicotine dependence, unspecified, uncomplicated
CPT/HCPCS: 10060; 99283

== ENCOUNTER 2021-12-11 18:14 | Emergency (ER) | payer OTHER ==
[~2021-12-11] VITALS: Ht 167.6 cm; Wt 67.7 kg
[~2021-12-11 18:14] MED LIST changes: +CEPH500C PO
[2021-12-11 18:26] VITALS: BP 153/101
--- NOTE | 2021-12-11 18:28 | PHYS DOC ---
Past Medical History Past Medical History: HIV Past Surgical History: No Surgical History Smoking Status: Current Every Day Smoker Alcohol Use: None Drug Use: None General Adult EDM: Chief Complaint: ABSCESS HPI: HPI: Patient is a 36 year old male who presents here with multiple abscesses. He reports that for the past several days he has had painful abscesses on his face, one larger one near the right anterior scalp, another one on his left cheek. He has been picking and squeezing the 1 on his left cheek, he feels that it is hard, he is able to express some purulent material. Though not initially reported during first encounter, he also reports left buttocks swelling, pain and concern for abscess. He has a history of recurrent abscesses, he has been seen here multiple times for previous similar symptoms. He denies fevers or chills. He reports no specific injury or trauma, though symptoms did seem to worsen after getting [facility]. His tetanus is up-to-date. He is requesting something to help with his anxiety. He has prev iously taken Xanax. He is requesting a dose of that here. He also would like some hydrocodone for pain. He has a scheduled appointment to see his primary care physician this . He has reportedly been out of his Xanax for several months. Review of Systems: Review of Systems: Constitutional: Denies fever or chills. [] HENT: Denies nasal congestion or sore throat. Right scalp abscess, left cheek abscess. No oral pain, no sore throat, no significant facial swelling, no voice changes or difficulty swallowing. Respiratory: Denies cough or shortness of breath. [] Cardiovascular: Denies chest pain GI: Denies abdominal pain, nausea, vomiting Musculoskeletal: Denies back pain or joint pain. [] Integument: Multiple abscesses of the face, buttocks Neurologic: Denies headache, focal weakness or sensory changes. [] Psychiatric: Chronic anxiety, denies SI or HI Heart Score: C/O Chest Pain: No Risk Factors: Risk Factors: DM, Current or recent (<one month) smoker, HTN, HLP, family history of CAD, obesity. Risk Scores: Score 0 - 3: 2.5% MACE over next 6 weeks - Discharge Home Score 4 - 6: 20.3% MACE over next 6 weeks - Admit for Clinical Observation Score 7 - 10: 72.7% MACE over next 6 weeks - Early Invasive Strategies Allergies: Allergies: Allergies Coded Allergies Type Severity Reaction Last Updated Verified quetiapine Allergy Intermediate jittery/sweaty 10/11/17 Yes sulfamethoxazole Allergy Intermediate 10/11/17 Yes trimethoprim Allergy Intermediate 10/11/17 Yes Penicillins Allergy Unknown 11/03/21 Yes tramadol Adverse Reaction Intermediate "makes me feel funny" 10/11/17 Yes Physical Exam: PE: Constitutional: Well developed, well nourished, no acute distress, non-toxic appearance. [] HENT: Normocephalic, atraumatic. Oropharynx is patent and clear, no oral swelling or oral lesions. Mucous membranes are moist. External ears and pinnae are normal bilaterally. Nares are patent without rhinorrhea epistaxis. There is a small, cutaneous, indurated abscess of his left cheek. No palpable fluctuance, no spontaneous drainage. There is mild scaly induration and erythema of the bilateral cheeks/face. There is a moderate sized, fluctuant abscess of the right anterior scalp, near the hairline. No significant surrounding cellulitis. Eyes: PERRL, EOMI, conjunctiva normal, no discharge. [] Neck: Trachea midline, no tenderness Cardiovascular: Well-perfused appearing, no edema, +2 radial pulse Lungs & Thorax: Respirations are nonlabored Skin: Abscess of the right scalp and left cheek, cellulitis of the cheeks/face as detailed above. There is a moderate sized abscess of the mid left buttocks, with focal fluctuance, mild surrounding erythema and induration. Back: No tenderness, full range of motion Extremities: No limb deformity, no edema Neurologic: Alert and oriented X 3, normal motor function, normal sensory function, no focal deficits noted. [] Psychologic: Anxious but cooperative and pleasant EKG: EKG: [] Radiology/Procedures: Radiology/Procedures: [] Course & Med Decision Making: Course & Med Decision Making The patient was given a first dose of doxycycline. He was given p.o. Xanax and p.o. Hancock for pain control. He declined actable local anesthesia for his facial abscess. He was given topical let. He did ultimately consent to injectable lidocaine with epinephrine for his left buttocks abscess I&D. He tolerated all procedures well. I discussed home care instructions. 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 I told him to keep his scheduled appointment with his primary care doctor at this week. I told him I would give him a very small number of 0.5 mg Xanax for discharge, but this will need to be refilled by his primary care doctor in the future. He should return in to the ER in 2 days for packing removal and wound check. Strict return precautions are given. He verbalizes understanding. He is discharged in stable condition. Dragon Disclaimer: Dragon Disclaimer: This electronic medical record was generated, in whole or in part, using a voice recognition dictation system. Incision and Drainage Indication: abscess of the right scalp and left mid buttocks. Procedure: The patient was positioned appropriately, seated position for the right scalp abscess. With a scalp abscess, he declined injectable anesthesia, topical let was used. The area was cleaned with an alcohol swab, a linear incision was made in the middle of the abscess, utilizing a #11 blade. A small amount of purulent material was drained. 1/4 inch plain packing was placed into the wound. A clean dressing was placed over the wound. material was expressed. For his left buttocks wound, he was given 1% lidocaine with epinephrine for local anesthesia, adequate anesthesia was achieved. Using a #11 blade, I incised an area over the apex of the abscess, and a moderate to large amount of purulent material was expressed. The area was cleaned with alcohol and Betadine. 1/4 inch plain packing was placed into the wound. A clean dressing was placed over the wound The patient tolerated the procedure well. Complications: none. Departure Departure Impression: Primary Impression: Abscess of left buttock Additional Impressions: Abscess of scalp Abscess of face Disposition: 01 HOME / SELF CARE / HOMELESS Condition: STABLE Referrals: UNKNOWN PCP NAME (PCP) Patient Instructions: Abscess, Abscess, Care After Additional Instructions: Please take the full course of antibiotics until they are gone. Use the pain medicine and anxiety medicine as needed. Use of topical nasal ointment as directed until gone. Return to the ER in 2 days for packing removal and wound check. Please return sooner for any fever, uncontrolled vomiting, if you notice increase in size of abscess, increase in pain, or for any other concerns. Please avoid picking or scratching at these areas, keep them clean and dry, you may use plain soap and water. Also follow-up with your primary care doctor as scheduled next week at [facility] Alprazolam (XANAX) 0.5 Mg Tablet 1 TAB PO BID for anxiety, #10 TAB Prov: JUSTO RAMIREZ DO 12/11/21 Mupirocin (MUPIROCIN OINTMENT) 22 Gm Oint...g. 1 CHASIDY TP BID for WOUND CARE for 5 Days, #22 GM nasal ointment; apply BID nasally with applicator, for 5 days Prov: JSUTO RAMIREZ DO 12/11/21 Doxycycline Hyclate (DOXYCYCLINE HYCLATE) 100 Mg Tablet 1 TAB PO BID for 10 Days, #20 TAB Prov: JUSTO RAMIREZ DO 12/11/21 Hydrocodone Bit/Acetaminophen (HYDROCODONE-APAP 5-325 ) 1 Tab Tablet 1 TAB PO PRN Q6HRS PRN for PAIN, #20 TAB 0 Refills Prov: JUSTO RAMIREZ DO 12/11/21 JUSTO RAMIREZ DO Dec 11, 2021 18:28
[2021-12-11] MEDS ORDERED: HYDROcodone/APAP 5/325MG 1 TAB TABLET PO ONE (18:45)
[2021-12-11] MEDS ORDERED: DOXYCYCLINE HYCLATE 100 MG TABLET PO ONE (18:45)
[2021-12-11] MEDS ORDERED: LIDOCAINE/EPI/TETRACAINE TOPICAL GEL 3 ML. TP ONE (18:45)
[2021-12-11] MEDS ORDERED: ALPRAZolam 0.5 MG TABLET PO ONE (19:15)
[2021-12-11] MEDS ORDERED: LIDOCAINE 1%/EPI 1:100,000 20 ML VIAL. ONE (20:00)
[2021-12-11] MEDS ORDERED: DOXY100T PO (20:21)
[2021-12-11] MEDS ORDERED: MUPI22OI2 TP (20:21)
[2021-12-11] MEDS ORDERED: HYDR-2761 PO (20:21)
[2021-12-11] MEDS ORDERED: ALPR0.5T PO (20:21)
== END 2021-12-11 20:40 | disposition home or self-care (01) ==
LOC: ER 18:14
DX: L02.31 Cutaneous abscess of buttock (principal); L02.811 Cutaneous abscess of head [any part, except face]; L02.01 Cutaneous abscess of face; F17.200 Nicotine dependence, unspecified, uncomplicated; Z88.0 Allergy status to penicillin; Z88.1 Allergy status to other antibiotic agents; Z88.2 Allergy status to sulfonamides; Z88.6 Allergy status to analgesic agent; Z88.8 Allergy status to other drugs, medicaments and biological substances
CPT/HCPCS: 10061; 99284